=== PATIENT | female | born 1935 | race Caucasian/White ===

== ENCOUNTER → 2017-03-10 | Outpatient (CLI) | payer MEDICARE, OTHER ==
[~2017-03-10] MED LIST: AMLO2.5T PO; ASP81TEC PO; AZIT-21 PO; CALC1TAB94 PO; CLOB15CR3 TP; CLOT15CR6 TOP; DCS100C PO; EST.625T PO; HYDR-3720 PO; IBP800T PO; PRD20T PO; RLX60T PO
--- NOTE | 2017-03-13 19:01 | Diagnostic Imaging Report ---
Bilateral screening mammogram The current study was also evaluated with a Computer Aided Detection (CAD) system. Indication: Screening. No current complaints stated on the questionnaire. COMPARISON: 03/09/15 FINDINGS: The breasts are composed of heterogeneously dense parenchyma which may decrease mammographic sensitivity. There are extensive vascular and other benign-appearing calcifications. Allowing for technique and positional differences, no suspicious change is seen. IMPRESSION: No significant change. ACR BI-RADS Category 2: Benign findings. Result letter will be mailed to the patient. Note: At least 10% of breast cancer is not imaged by mammography. Dictated by: Dictated on workstation # [id number]
== END ==
LOC: RAD 11:21
PROVIDERS: ATTEND Internal Medicine
DX: Z12.31 Encounter for screening mammogram for malignant neoplasm of breast (principal)
CPT/HCPCS: 77067

== ENCOUNTER 2019-09-30 23:38 | Inpatient (IN) | payer MEDICARE, OTHER ==
[~2019-09-30] VITALS: Ht 160 cm; Wt 60.8 kg
[2019-09-30] MEDS ORDERED: FUROSEMIDE 40 MG/4 ML INJ (LASIX) IVP ONE (23:45)
[2019-09-30] MEDS ORDERED: cefTRIAXone FOR IV USE 1,000 MG in WATER (STERILE) FOR INJECTION 10 ML IV ONE (23:45)
[2019-09-30] MEDS ORDERED: AZITHROMYCIN INJECTION 500 MG in NS (IVPB) 250 ML IV ONE (23:45)
--- NOTE | 2019-09-30 23:55 | ED Respiratory ---
General Chief Complaint: Respiratory Problems Stated Complaint: SOB Source: patient, EMS Exam Limitations: clinical condition (Air Hunger) History of Present Illness Date Seen by Provider: Sep 30, 2019 Time Seen by Provider: 23:32 Initial Comments Patient presents to ER by EMS from home with chief complaint that 2250 she was sitting awake in her home when she had a sudden onset of shortness of breath. She called ambulance and EMS reports that they heard audible crackles across the room. We gave her a DuoNeb which made no difference. Put her on CPAP 100% FiO2 and this brought her up from the 80s on room air to mid 90s. Patient is adamant she is a DO NOT RESUSCITATE and DO NOT INTUBATE. She denies having any sign ificant medical history. She does take 2 medications but because of her air hunger she is not able to communicate those at this time. She denies taking any blood thinners or history of clots. Her records do demonstrate she was on hormone replacement therapy at one point. She denies taking any medications uoaa-loi-vhuadgi or herbals today. She said it came on rather suddenly. She de nies a history of heart failure or swelling in her hands or feet. She's not having any chest pain just increased worker breathing and shortness of breath. No recent illness, cough, fevers, chills, weakness or malaise. States she does not follow with a behavior management specialist but is a patient of Dr. Snyder. Allergies and Home Medications Allergies Coded Allergies: No Known Drug Allergies (Unverified , 07/29/12) Home Medications Amlodipine Besylate 2.5 Mg Tablet, 1 EACH PO DAILY, (Reported) Aspirin 81 Mg Tabec, 81 MG PO DAILY, (Reported) Betamethasone/Clotrimazole 15 Gm Cream.gm., 0 TOP BID, (Reported) APPLY TO AFFECTED AREA(S) Calcium Carbonate/Vitamin D3 1 Each Tablet, 1 EACH PO DAILY, (Reported) Clobetasol Propionate 15 Gm Cream.gm., 0 TP BID, (Reported) APPLY TO AFFECTED AREA(S) Docusate Sodium 100 Mg Capsule, 1 CAP PO DAILY PRN for CONSTIPATION Prescribed by: CHUY LY on 12/31/13 0813 Estrogens,Conjugated 0.625 Mg Tablet, 1 TAB PO DAILY, (Reported) Hydrocodone Bit/Acetaminophen 1 Each Tablet, 1-2 TAB PO Q3H PRN for PAIN Prescribed by: CHUY LY on 12/31/13812 Ibuprofen 800 Mg Tablet, 1 TAB PO Q6H PRN for PAIN Prescribed by: CHUY LY on 12/31/13812 Patient Home Medication List Home Medication List Reviewed: Yes Review of Systems Review of Systems Constitutional: No chills, No fever, No malaise EENTM: No ear pain, No eye pain Respiratory: see HPI; No cough, No phlegm; short of breath; No stridor, No wheezing Cardiovascular: No chest pain, No Hx of Intervention, No palpitations, No syncope, No vascular heart diseas Gastrointestinal: No abdominal pain, No constipation, No diarrhea Genitourinary: No discharge, No dysuria Musculoskeletal: No back pain, No joint pain All Other Systems Reviewed Negative Unless Noted: Yes Past Dwqqpks-Tjfwdx-Wtbbmp Hx Patient Social History Alcohol Use: Denies Use Recreational Drug Use: No Smoking Status: Never a Smoker Recent Foreign Travel: No Contact w/Someone Who Travel: No Immunizations Up To Date Date of Pneumonia Vaccine: Jul 05, 2010 Date of Influenza Vaccine: Jun 19, 2012 Family Medical History Family history: Cardiovascular disease 03 FATHER 03 MOTHER Physical Exam Vital Signs - First Documented 09/30/19 09/30/19 23:38 23:42 Temp 35.9 Pulse 118 Resp 24 Pulse Ox 100 O2 Delivery NIV Bilevel FiO2 100 Capillary Refill : Height: 5'3.00" Weight: 142lbs. oz. 64.035347ys; BMI Method:Stated General Appearance: WD/WN, moderate distress Eyes: Bilateral Eye Normal Inspection, Bilateral Eye PERRL, Bilateral Eye EOMI HEENT: PERRL/EOMI, normal ENT inspection, pharynx normal Neck: full range of motion, supple, normal inspection Respiratory: accessory muscle use (moderate moderate), rales, rhonchi (bilateral, audible); No wheezing Cardiovascular: normal peripheral pulses, regular rate, rhythm Gastrointestinal: normal bowel sounds, non tender, soft Extremities: normal range of motion, non-tender, normal inspection, no pedal edema Neurologic/Psychiatric: alert, normal mood/affect, oriented x 3 Skin: normal color, warm/dry Focused Exam Sepsis Stage: Sepsis Possible Source: Pulmonary Lactate Level 09/30/19 23:49: Lactic Acid Level 2.24*H Time of Focused Exam: 02:38 Respiratory: No Accessory Muscle Use, Rales, Respiratory Distress (improved on BiPAP) Cardiovascular: Regular Rate, Rhythm, No Edema, Normal Peripheral Pulses Capillary Refill: Less Than 3 Seconds Peripheral Pulses: 2+ Radial Pulses (R), 2+ Radial Pulses (L) Skin: normal color, warm/dry Lactic Acid Level Laboratory Tests Test 09/30/19 23:49 Lactic Acid Level 2.24 MMOL/L (0.50-2.00) *H Within 3hrs of presentation: Admin fluids, Admin ABX, Blood cultures prior to ABX's, Focus exam, Lactate level Progress/Results/Core Measures Suspected Sepsis SIRS Temperature: Pulse: Respiratory Rate: Laboratory Tests 09/30/19 23:49: White Blood Count 9.8 Blood Pressure / Mean: 09/30/19 23:49: Lactic Acid Level 2.24*H Laboratory Tests 09/30/19 23:49: Creatinine 1.25, INR Comment 0.9, Platelet Count 327, Total Bilirubin 0.3 Results/Orders Lab Results Laboratory Tests Test 09/30/19 23:49 10/01/19 00:07 Range/Units White Blood Count 9.8 4.3-11.0 10^3/uL Red Blood Count 3.84 L 4.35-5.85 10^6/uL Hemoglobin 11.8 11.5-16.0 G/DL Hematocrit 37 35-52 % Mean Corpuscular Volume 97 80-99 FL Mean Corpuscular Hemoglobin 31 25-34 PG Mean Corpuscular Hemoglobin Concent 32 32-36 G/DL Red Cell Distribution Width 13.3 10.0-14.5 % Platelet Count 327 130-400 10^3/uL Mean Platelet Volume 10.6 H 7.4-10.4 FL Neutrophils (%) (Auto) 39 L 42-75 % Lymphocytes (%) (Auto) 51 H 12-44 % Monocytes (%) (Auto) 7 0-12 % Eosinophils (%) (Auto) 4 0-10 % Basophils (%) (Auto) 0 0-10 % Neutrophils # (Auto) 3.8 1.8-7.8 X 10^3 Lymphocytes # (Auto) 4.9 H 1.0-4.0 X 10^3 Monocytes # (Auto) 0.7 0.0-1.0 X 10^3 Eosinophils # (Auto) 0.3 0.0-0.3 10^3/uL Basophils # (Auto) 0.0 0.0-0.1 10^3/uL Prothrombin Time 12.6 12.2-14.7 SEC INR Comment 0.9 0.8-1.4 Activated Partial Thromboplast Time 24 24-35 SEC D-Dimer 2.30 H 0.00-0.49 UG/ML Blood Gas Puncture Site RIGHT RADIAL Blood Gas Patient Temperature 96.5 Arterial Blood pH 7.32 *L 7.37-7.43 Arterial Blood Partial Pressure CO2 36 35-45 MMHG Arterial Blood Partial Pressure O2 189 H 79-93 MMHG Arterial Blood HCO3 18 L 23-27 MMOL/L Arterial Blood Total CO2 19.4 L 21.0-31.0 MMOL/L Arterial Blood Oxygen Saturation 100 94-100 % Arterial Blood Base Excess -6.9 L -2.5-2.5 MMOL/L Hira Test YES-POS Blood Gas Ventilator Setting NO Blood Gas Inspired Oxygen 18L Sodium Level 140 135-145 MMOL/L Potassium Level 3.6 3.6-5.0 MMOL/L Chloride Level 113 H 98-107 MMOL/L Carbon Dioxide Level 15 L 21-32 MMOL/L Anion Gap 12 5-14 MMOL/L Blood Urea Nitrogen 27 H 7-18 MG/DL Creatinine 1.25 0.60-1.30 MG/DL Estimat Glomerular Filtration Rate 41 BUN/Creatinine Ratio 22 Glucose Level 200 H 70-105 MG/DL Lactic Acid Level 2.24 *H 0.50-2.00 MMOL/L Calcium Level 8.7 8.5-10.1 MG/DL Corrected Calcium 9.1 8.5-10.1 MG/DL Total Bilirubin 0.3 0.1-1.0 MG/DL Aspartate Amino Transf (AST/SGOT) 29 5-34 U/L Alanine Aminotransferase (ALT/SGPT) 22 0-55 U/L Alkaline Phosphatase 51 40-136 U/L Troponin I 0.152 H <0.028 NG/ML B-Type Natriuretic Peptide 2120.2 H <100.0 PG/ML Total Protein 6.3 L 6.4-8.2 GM/DL Albumin 3.5 3.2-4.5 GM/DL Urine Color YELLOW Urine Clarity CLEAR Urine pH 5.0 5-9 Urine Specific [place] >=1.030 1.016-1.022 Urine Protein NEGATIVE NEGATIVE Urine Glucose (UA) NEGATIVE NEGATIVE Urine Ketones NEGATIVE NEGATIVE Urine Nitrite POSITIVE NEGATIVE Urine Bilirubin NEGATIVE NEGATIVE Urine Urobilinogen 0.2 < = 1.0 MG/DL Urine Leukocyte Esterase NEGATIVE NEGATIVE Urine RBC (Auto) NEGATIVE NEGATIVE Urine RBC NONE /HPF Urine WBC 0-2 /HPF Urine Squamous Epithelial Cells 0-2 /HPF Urine Crystals NONE /LPF Urine Bacteria LARGE H /HPF Urine Casts NONE /LPF Urine Mucus LARGE H /LPF Urine Culture Indicated CULTURE PENDING Micro Results Microbiology 09/30/19 Influenza Types A,B Antigen ([place]) - Final, Complete My Orders Orders - LENCHO CRESPO Cbc With Automated Diff (09/30/19 23:42) Comprehensive Metabolic Panel (09/30/19 23:42) Blood Culture (09/30/19 23:42) Sputum Culture (09/30/19 23:42) Urinalysis (09/30/19 23:42) Urine Culture (09/30/19 23:42) Protime With Inr (09/30/19 23:42) Partial Thromboplastin Time (09/30/19 23:42) Ed Iv/Invasive Line Start (09/30/19 23:42) Ed Iv/Invasive Line Start (09/30/19 23:42) Troponin I (09/30/19 23:42) Vital Signs Adult Sepsis Patie Q15M (09/30/19 23:42) O2 (09/30/19 23:42) Remove Rings In Anticipation O (09/30/19 23:42) Lactic Acid Analyzer (09/30/19 23:42) Influenza A And B Antigens (09/30/19 23:42) Ceftriaxone For Iv Use (Rocephin For I (09/30/19 23:45) Azithromycin Injection (Zithromax Inject (09/30/19 23:45) BNP (09/30/19 23:42) Ekg Tracing (09/30/19 23:42) Continuous Ekg Monitoring (09/30/19 23:42) Furosemide Injection (Lasix Injection) (09/30/19 23:45) Catheter(Urinary) Insert & Ass 03,15 (09/30/19 23:45) Enoxaparin Injection (Lovenox Injection) (10/01/19 00:00) Arterial Blood Gas (09/30/19 23:52) Chest 1 View, Ap/Pa Only (10/01/19 00:01) Ed Iv/Invasive Line Start (10/01/19 00:06) Ns Iv 1000 Ml (Sodium Chloride 0.9%) (10/01/19 00:06) Ct Angio Chest W (10/01/19 00:50) Aspirin Chewable Tablet (Baby Aspirin Ch (10/01/19 01:00) Fibrin Degradation Products (09/30/19 23:49) Iohexol Injection (Omnipaque 350 Mg/Ml 1 (10/01/19 01:30) Ns (Ivpb) (Sodium Chloride 0.9% Ivpb Bag (10/01/19 01:30) Ed Iv/Invasive Line Start (10/01/19 02:39) Ekg Tracing (10/01/19 02:39) Medications Given in ED Current Medications Medications Dose Ordered Sig/Kiko Route Start Time Stop Time Status Last Admin Dose Admin Aspirin 324 mg ONCE ONCE PO 10/01/19 01:00 10/01/19 01:01 DC 10/01/19 00:57 324 MG Azithromycin 500 mg/Sodium Chloride 250 ml @ 250 mls/hr ONCE ONCE IV 09/30/19 23:45 10/01/19 00:44 DC 10/01/19 00:55 250 MLS/HR Ceftriaxone Sodium 1000 mg/ Sterile Water 10 ml @ 200 mls/hr ONCE ONCE IV 09/30/19 23:45 09/30/19 23:47 DC 10/01/19 00:54 200 MLS/HR Enoxaparin Sodium 60 mg ONCE ONCE SC 10/01/19 00:00 10/01/19 00:01 DC 10/01/19 00:53 60 MG Iohexol 100 ml ONCE ONCE IV 10/01/19 01:30 10/01/19 02:21 DC 10/01/19 01:27 100 ML Sodium Chloride 80 ml ONCE ONCE IV 10/01/19 01:30 10/01/19 02:21 DC 10/01/19 01:27 80 ML Vital Signs/I&O 09/30/19 09/30/19 10/01/19 23:38 23:42 00:36 Temp 35.9 Pulse 118 Resp 24 B/P (MAP) Pulse Ox 100 O2 Delivery NIV Bilevel FiO2 100 Capillary Refill : Progress Note : Time: 23:55 Progress Note We put her on BiPAP to give her some positive pressure ventilation as well as FiO2 of 100%. She had a sudden onset of pulmonary edema sounds like either from pneumonia, viral, pulmonary embolism, heart failure? We'll get some labs and septic workup to support this. We'll hold off any fluids at this time and give her 40 mg of IV Lasix as well as a [place] catheter. EKG and troponin as a heart attack could cause heart failure. We'll give her aspirin to chew up and swallow. Her blood pressure will not support nitroglycerin at this time. EKG has lots of respiratory artifact due to her increased work of breathing. We'll get an ABG and readjust fire on her BiPAP from 06/08. Echocardiogram 2013 Dr. Vogt demonstrates no left ventricular hypertrophy. EF of 60%. ECG Initial ECG Impression Date: Sep 30, 2019 Initial ECG Impression Time: 23:49 Initial ECG Rate: 111 Initial ECG Rhythm: S.Tach Initial ECG Intervals: Normal Initial ECG Impression: Normal, Nonspecific Changes Initial ECG Comparisson: Unchanged Comment Respiratory artifact maybe some lateral ST depression. EKG : EKG Time: 02:57 Rate: 97 Rhythm: Normal Sinus Intervals: QT (524) ECG Comparisson: Changed ECG Impression: Nonspecific Changes Comment Left bundle branch block, Sinus rhythm. Negative for Sgarbossa's criteria. Negative for ST elevation [place]. Diagnostic Imaging Diagonstic Imaging: Xray Plain Films/CT/US/NM/MRI: chest (1v) Comments Right lower lobe edema versus infiltrate. Reviewed: Reviewed by Me Diagonstic Imaging: CT (angiogram) Plain Films/CT/US/NM/MRI: chest Comments Moderate bilateral pleural effusions and pulmonary edema. Mild cardiomegaly. No pulmonary embolism. Reviewed: Reviewed by Me Departure Communication (Admissions) Time/Spoke to Admitting Phy: 02:32 Discussed case lab imaging EKG with Dr. De La Vega and he agrees with ICU placement Time/Spoke to Consulting Phy: 00:00 Discussed case lab and imaging with Dr. Berg, cardiology and he agrees with Lovenox, aspirin and he'll see the patient the morning. Impression Primary Impression: Non-STEMI (non-ST elevated myocardial infarction) Additional Impressions: Acute respiratory failure Qualified Codes: J96.01 - Acute respiratory failure with hypoxia Pneumonia Qualified Codes: J18.1 - Lobar pneumonia, unspecified organism Sepsis Qualified Codes: A41.9 - Sepsis, unspecified organism Disposition: ADMITTED INPATIENT Condition: Critical Admissions Decision to Admit Reason: Admit from ER (General) Decision to Admit/Date: Oct 01, 2019 Time/Decision to Admit Time: 00:00 Departure-Patient Inst. Referrals: EZIO CHAVIRA MD (PCP/Family) Primary Care Physician LENCHO CRESPO Sep 30, 2019 23:55
[2019-10-01] VITALS (25 sets, daily range): BP systolic 94–135; BP diastolic 57–95
[2019-10-01] MEDS ORDERED: ENOXAPARIN 60 MG/0.6 ML (LOVENOX) SYR SC ONE
[2019-10-01 00:01] LABS: ABG BASE EXCESS -6.9 MMOL/L (-2.5-2.5); ABG OXYGEN SATURATION 100 % (94-100); ABG PCO2 36 MMHG (35-45); ABG PO2 189 MMHG (79-93); ABG TCO2 19.4 MMOL/L (21.0-31.0)
[2019-10-01 00:02] LABS: BASOPHILS % (AUTO) 0 % (0-10); EOSINOPHILS # (AUTO) 0.3 10^3/uL (0.0-0.3); EOSINOPHILS % (AUTO) 4 % (0-10); HEMATOCRIT 37 % (35-52); HEMOGLOBIN 11.8 G/DL (11.5-16.0); LYMPHOCYTES # (AUTO) 4.9 X 10^3 (1.0-4.0); LYMPHOCYTES % (AUTO) 51 % (12-44); MEAN CORPUSCULAR HEMOGLOBIN 31 PG (25-34); MEAN CORPUSCULAR HGB CONC 32 G/DL (32-36); MEAN CORPUSCULAR VOLUME 97 FL (80-99); MEAN PLATELET VOLUME 10.6 FL (7.4-10.4); MONOCYTES # (AUTO) 0.7 X 10^3 (0.0-1.0); MONOCYTES % (AUTO) 7 % (0-12); NEUTROPHILS # (AUTO) 3.8 X 10^3 (1.8-7.8); NEUTROPHILS % (AUTO) 39 % (42-75); PLATELET COUNT 327 10^3/uL (130-400); RED CELL DISTRIBUTION WIDTH 13.3 % (10.0-14.5); WHITE BLOOD COUNT 9.8 10^3/uL (4.3-11.0)
[2019-10-01 00:04] LABS: ABG PH 7.32 (7.37-7.43); ALLENS TEST YES-POS; INSPIRED O2 18L; PATIENT TEMP 96.5; VENTILATOR NO
[2019-10-01] MEDS ORDERED: NS IV 1000 ML 1,000 ML IV SCH (00:06)
[2019-10-01 00:18] LABS: BILIRUBIN,URINE NEGATIVE (NEGATIVE); CLARITY,URINE CLEAR; COLOR,URINE YELLOW; GLUCOSE, URINE (UA) NEGATIVE (NEGATIVE); KETONES,URINE NEGATIVE (NEGATIVE); LEUKOCYTE ESTERASE ,URINE NEGATIVE (NEGATIVE); NITRITE,URINE POSITIVE (NEGATIVE); PROTEIN,URINE NEGATIVE (NEGATIVE)
[2019-10-01 00:25] LABS: INR 0.9 (0.8-1.4); PROTHROMBIN TIME PATIENT 12.6 SEC (12.2-14.7)
[2019-10-01 00:31] LABS: BACTERIA,URINE LARGE /HPF; SQUAMOUS EPITHELIAL CELL,UR 0-2 /HPF; WBC,URINE 0-2 /HPF
[2019-10-01 00:33] LABS: ALBUMIN 3.5 GM/DL (3.2-4.5); BILIRUBIN,TOTAL 0.3 MG/DL (0.1-1.0); CALCIUM 8.7 MG/DL (8.5-10.1); CREATININE SERUM 1.25 MG/DL (0.60-1.30); POTASSIUM 3.6 MMOL/L (3.6-5.0); TOTAL PROTEIN 6.3 GM/DL (6.4-8.2)
[2019-10-01] MEDS ORDERED: ASPIRIN 81 MG CHEW (CHILDREN'S ASA) PO ONE (01:00)
[2019-10-01 01:15] LABS: FIBRIN DEGRADATION PRODUCTS 2.3 UG/ML (0.00-0.49)
[2019-10-01] MEDS ORDERED: NS 100 ML (IVPB) BAG IV ONE (01:30)
[2019-10-01] MEDS ORDERED: IOHEXOL 350 MG/ML 100 ML (OMNIPAQUE 350) VIAL IV ONE (01:30)
[2019-10-01] MEDS ORDERED: NS IV 500 ML 500 ML IV ONE (02:39)
[2019-10-01 04:22] LABS: BASOPHILS % (AUTO) 0 % (0-10); EOSINOPHILS % (AUTO) 0 % (0-10); HEMATOCRIT 34 % (35-52); HEMOGLOBIN 10.7 G/DL (11.5-16.0); LYMPHOCYTES # (AUTO) 1.1 X 10^3 (1.0-4.0); LYMPHOCYTES % (AUTO) 12 % (12-44); MEAN CORPUSCULAR HEMOGLOBIN 31 PG (25-34); MEAN CORPUSCULAR HGB CONC 32 G/DL (32-36); MEAN CORPUSCULAR VOLUME 97 FL (80-99); MEAN PLATELET VOLUME 10.2 FL (7.4-10.4); MONOCYTES # (AUTO) 0.7 X 10^3 (0.0-1.0); MONOCYTES % (AUTO) 8 % (0-12); NEUTROPHILS # (AUTO) 7.4 X 10^3 (1.8-7.8); NEUTROPHILS % (AUTO) 80 % (42-75); PLATELET COUNT 272 10^3/uL (130-400); RED CELL DISTRIBUTION WIDTH 13.2 % (10.0-14.5); WHITE BLOOD COUNT 9.2 10^3/uL (4.3-11.0)
[2019-10-01] MEDS ORDERED: RT-ALBUTEROL/IPRATROPIUM 3 ML (DUONEB) VIAL INH PRN (04:30)
[2019-10-01 04:45] LABS: ALBUMIN 3.4 GM/DL (3.2-4.5); BILIRUBIN,TOTAL 0.3 MG/DL (0.1-1.0); CALCIUM 8.9 MG/DL (8.5-10.1); CREATININE SERUM 1.25 MG/DL (0.60-1.30); MAGNESIUM 1.9 MG/DL (1.6-2.4); PHOSPHORUS 3.8 MG/DL (2.3-4.7); POTASSIUM 4.2 MMOL/L (3.6-5.0)
[2019-10-01] MEDS ORDERED: ONDANSETRON 4 MG/2 ML (SDV) Z0FRAN IV PRN (04:45)
[2019-10-01] MEDS ORDERED: EPINEPHrine 1 MG INJECTION 2 MG in NS (IVPB) 250 ML IV SCH (04:45)
[2019-10-01] MEDS ORDERED: ACETAMINOPHEN 500 MG TAB (TYLENOL) PO PRN (04:45)
[2019-10-01] MEDS ORDERED: AZITHROMYCIN INJECTION 500 MG in NS (IVPB) 250 ML IV SCH (04:45)
[2019-10-01 05:35] LABS: ABG BASE EXCESS -5.4 MMOL/L (-2.5-2.5); ABG OXYGEN SATURATION 99 % (94-100); ABG PCO2 28 MMHG (35-45); ABG PH 7.42 (7.37-7.43); ABG PO2 101 MMHG (79-93); ABG TCO2 19.2 MMOL/L (21.0-31.0)
[2019-10-01 05:41] LABS: ALLENS TEST YES-POS; INSPIRED O2 40%; PATIENT TEMP 36.2; VENTILATOR NO
--- NOTE | 2019-10-01 05:41 | Pulmonary Consultation ---
History of Present Illness History of Present Illness Date Seen by Provider: Oct 01, 2019 Time Seen by Provider: 05:36 Date of Admission History of Present Illness 84yo presented to ED via EMS secondary to worsening SOB. Pt was found to have acute respiratory distress and was place on BiPAP. She was given DuoNeb however this did not improve her symptoms. Currently pt is still on BiPAP and still complains of SOB however improved with BiPAP. No prior episodes like this in the past. Denies CP or productive cough. No F/NS/chills. I am consulted for pulmonary/ICU management. Allergies and Home Medications Allergies Coded Allergies: No Known Drug Allergies (Unverified , 07/29/12) Home Medications Amlodipine Besylate 2.5 Mg Tablet, 1 EACH PO DAILY, (Reported) Aspirin 81 Mg Tabec, 81 MG PO DAILY, (Reported) Betamethasone/Clotrimazole 15 Gm Cream.gm., 0 TOP BID, (Reported) APPLY TO AFFECTED AREA(S) Calcium Carbonate/Vitamin D3 1 Each Tablet, 1 EACH PO DAILY, (Reported) Clobetasol Propionate 15 Gm Cream.gm., 0 TP BID, (Reported) APPLY TO AFFECTED AREA(S) Docusate Sodium 100 Mg Capsule, 1 CAP PO DAILY PRN for CONSTIPATION Prescribed by: CHUY LY on 12/31/13812 Estrogens,Conjugated 0.625 Mg Tablet, 1 TAB PO DAILY, (Reported) Hydrocodone Bit/Acetaminophen 1 Each Tablet, 1-2 TAB PO Q3H PRN for PAIN Prescribed by: CHUY LY on 12/31/13812 Ibuprofen 800 Mg Tablet, 1 TAB PO Q6H PRN for PAIN Prescribed by: CHUY LY on 12/31/13812 Past Uzlrvwv-Wfpebi-Vfryry Hx Patient Social History Alcohol Use: Denies Use Recreational Drug Use: No Smoking Status: Never a Smoker Recent Foreign Travel: No Contact w/Someone Who Travel: No Recent Infectious Disease Expo: No Recent Hopitalizations: No Physical Abuse: No Sexual Abuse: No Mistreated: No Fear: No Immunizations Up To Date Date of Pneumonia Vaccine: Aug 01, 2010 Date of Influenza Vaccine: Jun 04, 2019 Seasonal Allergies Seasonal Allergies: No Past Medical History Surgeries: Yes (vaginal surgery-unk.) Respiratory: No Cardiac: Yes Neurological: No Gastrointestinal: No Musculoskeletal: No Endocrine: No Cancer: No Psychosocial: No Integumentary: No Blood Disorders: No Family Medical History Family history: Cardiovascular disease 03 FATHER 03 MOTHER Review of Systems Time Seen by Provider: 07:18 Constitutional: Weakness, Malaise; No: Fever, Chills, Sweats, Other Eyes: No: Pain, Vision change, Conjunctivae inflammation, Eyelid inflammation, Other, Redness ENT: No: Ear pain, Ear discharge, Nose pain, Nose discharge, Nose congestion, Mouth pain, Mouth swelling, Throat pain, Throat swelling, Other Respiratory: Cough, Dry, Shortness of breath, SOB with excertion; No: Wheezing, Hemoptysis, Pleuritic Pain, Sputum, Wheezing, Other Cardiovascular: Palpitations, Paroxysmal Noc. Dyspnea; No: Edema Gastrointestinal: No: Nausea, Vomiting, Abdominal Pain, Diarrhea, Constipation, Melena, Hematochezia, Other Sepsis Event Evaluation Height, Weight, BMI Height: 5'3.00" Weight: 142lbs. oz. 64.065631pe; 23.00 BMI Method:Stated Exam Exam Vital Signs Date Time Temp Pulse Resp B/P (MAP) Pulse Ox O2 Delivery O2 Flow Rate FiO2 10/01/19 05:00 94 16 102/65 (77) 97 NIV Bilevel 40.00 10/01/19 04:45 95 18 101/68 (79) 97 NIV Bilevel 40.00 10/01/19 04:30 93 16 110/70 (83) 98 NIV Bilevel 40.00 10/01/19 04:20 102 98 40 10/01/19 04:15 98 24 109/71 (84) 99 NIV Bilevel 40.00 10/01/19 04:07 96 10/01/19 04:00 NIV Bilevel 40 10/01/19 04:00 96 26 102/63 (76) 98 NIV Bilevel 40.00 10/01/19 04:00 121 30 97 100.00 10/01/19 03:59 110 32 100 40.00 10/01/19 03:55 37.1 101 26 108/61 (77) 98 NIV Bilevel 40.00 10/01/19 03:34 35.9 94 20 90/71 100 NIV Bilevel 10/01/19 00:36 09/30/19 23:42 100 NIV Bilevel 100 09/30/19 23:38 35.9 118 24 I & O 10/01/19 07:00 Intake Total 1260 ml Balance 1260 ml Height & Weight Height: 5'3.00" Weight: 142lbs. oz. 64.994688bl; 23.00 BMI Method:Stated General Appearance: Anxious, Mild Distress, Thin HEENT: PERRL/EOMI, Pharynx Normal Neck: Full Range of Motion, Non Tender, Supple Respiratory: No Accessory Muscle Use, Decreased Breath Sounds, Rales, Respiratory Distress (improved on BiPAP) Cardiovascular: Regular Rate, Rhythm, No Edema, Normal Peripheral Pulses Capillary Refill: Less Than 3 Seconds Peripheral Pulses: 2+ Radial Pulses (R), 2+ Radial Pulses (L) Gastrointestinal: normal bowel sounds, non tender, soft Extremity: Normal Capillary Refill, Normal Inspection, No Pedal Edema Neurologic/Psychiatric: Alert, Oriented x3 Skin: Normal Color, Warm/Dry Results Lab Laboratory Tests 09/30/19 23:49 10/01/19 04:00 Assessment/Plan Assessment/Plan Acute respiratory failure with hypoxia -PT is currently on BiPAP -CT of chest reviewed -Check bilateral dopplers Bilateral pleural effusions -Check echocardiogram Metabolic lactic acidosis probably secondary to hypoxia -- Doubt sepsis -Monitor -Currently IVF going at 100cc/hr -Await echo -- pt will probably need lasix -BNP is >2000 Atelectasis doubt PNA -No fever, no leukocytosis -No productive cough NSTEMI -Cardiology following MOOK ROBERTS DO Oct 01, 2019 05:41
[2019-10-01] MEDS: NS W/KCL 20 MEQ/L 1,000 ML IV SCH ×2 (06:00→15:24)
[2019-10-01] MEDS: VASOPRESSIN INJECTION 20 UNIT in NORMAL SALINE 100 ML IV SCH ×3 (06:03→21:07)
[2019-10-01] MEDS: NOREPINEPHRINE 4 MG/250 ML 250 ML IV SCH ×2 (06:03→18:20)
--- NOTE | 2019-10-01 06:46 | Diagnostic Imaging Report ---
INDICATION: Shortness of breath COMPARISON: 05/10/2008 TECHNIQUE: Single radiograph of the chest dated 10/01/2019. FINDINGS: The cardiac silhouette is mildly enlarged. Central pulmonary vascular congestion is present. Bilateral predominantly interstitial opacities are present with mild superimposed airspace opacities, left greater than right. Small bilateral pleural effusions. No pneumothorax. No acute osseous abnormality. IMPRESSION: Constellation of findings is felt to relate to congestive heart failure with associated interstitial edema and small bilateral pleural effusions. Dictated by: Dictated on workstation # [id number]
--- NOTE | 2019-10-01 08:07 | Diagnostic Imaging Report ---
PROCEDURE: US Venous Lower Ext Martín. TECHNIQUE: Multiple real-time grayscale images were obtained over the lower extremities in various projections, bilaterally. Additional duplex Doppler and color Doppler images were also obtained. INDICATION: Shortness of air, congestive heart failure COMPARISON: None available FINDINGS: Normal flow, compression, and augmentation within the visualized deep venous structures of the bilateral lower extremities. IMPRESSION: No evidence of deep venous thrombosis within the bilateral lower extremities. Dictated by: Dictated on workstation # [id number]
--- NOTE | 2019-10-01 08:10 | Diagnostic Imaging Report ---
PROCEDURE: CT angiography of the chest with contrast. TECHNIQUE: Multiple contiguous axial images were obtained through the chest after uneventful bolus administration of intravenous contrast. 3D reconstructed CTA MIP acquisitions were also performed. Auto Exposure Controls were utilized during the CT exam to meet ALARA standards for radiation dose reduction. INDICATION: Shortness of breath. COMPARISON: None FINDINGS: There is no definitive filling defect in the pulmonary arteries to suggest pulmonary embolism. There is some attenuation of the peripheral branches making their assessment limited. Mild severity cardiac enlargement. There is no disproportionate right heart enlargement. Presence of scattered coronary artery calcification. Mild calcification thoracic aorta which otherwise normal in contour. No significant pericardial effusion. No definitive pathologically enlarged mediastinal lymph nodes. There is moderate sized bilateral pleural effusions right slightly greater than left. Fluid layering dependently. There is scattered areas of consolidation about both lung medina slightly greater involving the lower lobes as well as more central aspect of the upper lobe distributions. Given the overall findings favors probable pulmonary edema. Superimposed infiltrate would be difficult to exclude. The visualized portions of the upper abdomen demonstrate no suggestion for acute findings. Slight accentuated thoracic kyphosis owing to mildly compressed anteriorly wedged mid thoracic vertebral bodies. Prominent calcification in the carotid bifurcations. IMPRESSION: 1. No CTA evidence for pulmonary embolism. 2. Presence of mild cardiomegaly, moderate bilateral pleural effusions as well as likely pulmonary edema features favoring fluid overload or congestive heart failure. A superimposed consolidating pneumonia within the lung medina is not excluded. A preliminary report was provided by [employer]. Dictated by: Dictated on workstation # [id number]
[2019-10-01] MEDS: ASPIRIN E.C. 81 MG (ECOTRIN) TAB PO SCH (08:35)
[2019-10-01] MEDS: ENOXAPARIN 60 MG/0.6 ML (LOVENOX) SYR SC SCH (08:35)
--- NOTE | 2019-10-01 09:09 | History & Physical-Hospitalist ---
History of Present Illness HPI/Chief Complaint Is an 84-year-old female the past medical history of hypertension who presented to the emergency department with shortness of breath. She states that her symptoms started on September 28 and have gradually progressed. She states she was lying down in bed last night and woke up short of breath. She was able to walk to the living room but remained very short of breath so called EMS via her life. Per notes EMS could hear crackles from across the room. She was given a breathing treatment without improvement and was placed on BiPAP in the emergency room. This helped improved her symptoms and she was also given Lasix. This morning she is off BiPAP and says she feels much better. His found to have an elevated troponin and elevated BNP but reports no history of heart disease or heart failure. Source: patient Date Seen 10/01/19 Time Seen by a Provider: 07:50 Attending Physician Patrice De La Vega MD PCP Kodi Caballero MD Referring Physician Date of Admission Oct 01, 2019 at 02:40 Home Medications & Allergies Home Medications Reviewed patient Home Medication Reconciliation performed by pharmacy medication reconciliations automotive diagnostic technician and/or nursing. Patients Allergies have been reviewed. Allergies Allergies Coded Allergies No Known Drug Allergies ([id number]/25/12) Past Vmiwmvc-Hxlgsc-Ogtxyn Hx Past Med/Social Hx: Reviewed Nursing Past Med/Soc Hx Patient Social History Employed/Student: retired Alcohol Use: Denies Use Recreational Drug Use: No Smoking Status: Never a Smoker Recent Foreign Travel: No Contact w/other who traveled: No Recent Hopitalizations: No Recent Infectious Disease Expo: No Immunizations Up To Date Date of Pneumonia Vaccine: Aug 01, 2010 Date of Influenza Vaccine: Jun 04, 2019 Seasonal Allergies Seasonal Allergies: No Past Medical History Surgeries: Hysterectomy Cardiac: Hypertension History of Blood Disorders: No Family History Reviewed Nursing Family Hx Family history: Cardiovascular disease 03 FATHER 03 MOTHER Heart Disease Review of Systems Constitutional: No chills, No fever, No weakness Respiratory: see HPI, dyspnea on exertion, short of breath Cardiovascular: No chest pain; edema; No Hx of Intervention, No palpitations Gastrointestinal: no symptoms reported; No abdominal pain, No constipation Genitourinary: no symptoms reported; No dysuria, No frequency Musculoskeletal: no symptoms reported Skin: no symptoms reported Psychiatric/Neurological: No Symptoms Reported Physical Exam Physical Exam Vital Signs Vital Signs - First Documented 109/30/19 10/01/19 10/01/19 23:38 23:42 03:34 03:55 Temp 35.9 Pulse 118 Resp 24 B/P (MAP) 90/71 Pulse Ox 100 O2 Delivery NIV Bilevel O2 Flow Rate 40.00 FiO2 100 Capillary Refill : Less Than 3 Seconds Height, Weight, BMI Height: 5'3.00" Weight: 142lbs. oz. 64.751769ym; 23.00 BMI Method:Stated General Appearance: No Apparent Distress, WD/WN HEENT: PERRL/EOMI, Moist Mucous Membranes; No Scleral Icterus (L), No Scleral Icterus (R) Neck: Normal Inspection, Supple; No Thyromegaly Respiratory: Lungs Clear, No Accessory Muscle Use, No Respiratory Distress Cardiovascular: No Edema, No JVD, No Murmur, Tachycardia Gastrointestinal: Normal Bowel Sounds, Non Tender, Soft Extremity: Normal Capillary Refill, No Calf Tenderness, No Pedal Edema Neurologic/Psychiatric: Alert, Oriented x3 Skin: Normal Color, Warm/Dry Results Results/Procedures Labs Laboratory Tests 09/30/19 23:49 10/01/19 04:00 Patient resulted labs reviewed. Imaging: Reviewed Imaging Report Imaging Date of Exam:10/01/19 CHEST 1 VIEW, AP/PA ONLY INDICATION: Shortness of breath COMPARISON: 05/10/2008 TECHNIQUE: Single radiograph of the chest dated 10/01/2019. FINDINGS: The cardiac silhouette is mildly enlarged. Central pulmonary vascular congestion is present. Bilateral predominantly interstitial opacities are present with mild superimposed airspace opacities, left greater than right. Small bilateral pleural effusions. No pneumothorax. No acute osseous abnormality. IMPRESSION: Constellation of findings is felt to relate to congestive heart failure with associated interstitial edema and small bilateral pleural effusions. Date of Exam:10/01/19 CT ANGIO CHEST W PROCEDURE: CT angiography of the chest with contrast. TECHNIQUE: Multiple contiguous axial images were obtained through the chest after uneventful bolus administration of intravenous contrast. 3D reconstructed CTA MIP acquisitions were also performed. Auto Exposure Controls were utilized during the CT exam to meet ALARA standards for radiation dose reduction. INDICATION: Shortness of breath. COMPARISON: None FINDINGS: There is no definitive filling defect in the pulmonary arteries to suggest pulmonary embolism. There is some attenuation of the peripheral branches making their assessment limited. Mild severity cardiac enlargement. There is no disproportionate right heart enlargement. Presence of scattered coronary artery calcification. Mild calcification thoracic aorta which otherwise normal in contour. No significant pericardial effusion. No definitive pathologically enlarged mediastinal lymph nodes. There is moderate sized bilateral pleural effusions right slightly greater than left. Fluid layering dependently. There is scattered areas of consolidation about both lung medina slightly greater involving the lower lobes as well as more central aspect of the upper lobe distributions. Given the overall findings favors probable pulmonary edema. Superimposed infiltrate would be difficult to exclude. The visualized portions of the upper abdomen demonstrate no suggestion for acute findings. Slight accentuated thoracic kyphosis owing to mildly compressed anteriorly wedged mid thoracic vertebral bodies. Prominent calcification in the carotid bifurcations. IMPRESSION: 1. No CTA evidence for pulmonary embolism. 2. Presence of mild cardiomegaly, moderate bilateral pleural effusions as well as likely pulmonary edema features favoring fluid overload or congestive heart failure. A superimposed consolidating pneumonia within the lung medina is not excluded. Assessment/Plan Admission Diagnosis Acute Respiratory Failure Admission Status: Inpatient Order (span 2 midnights) Reason for Inpatient Admission: necessitated BiPAP, likely new onset heart failure with NSTEMI- will need more than 2 midnights Assessment and Plan Acute Respiratory Failure- doubt PNA, not sepsis NSTEMI CHF BNP elevated, echo ordered Troponin mildly elevated, trend Received ASA Lasix Cardiology consulted, appreciate recs Pulm consulted, appreciate recs HTN Mildly hypotensive hold home meds elevated d-dimer Lovenox negative CTA negative bilateral lower extremities Clinical Quality Measures DVT/VTE Risk/Contraindication: Risk Factor Score Per Nursin RFS Level Per Nursing on Admit: 4+=Very High DADA BEY MD Oct 01, 2019 09:09
[2019-10-01] MEDS: RT-ALBUTEROL/IPRATROPIUM 3 ML (DUONEB) VIAL INH SCH ×3 (09:36→21:29)
--- NOTE | 2019-10-01 10:13 | NUR ---
Verbal order received from to give patient 80mg IV lasix now and daily.
[2019-10-01] MEDS: FUROSEMIDE 40 MG/4 ML INJ (LASIX) IVP SCH (10:32)
[2019-10-01] MEDS ORDERED: ASPI-983 PO (10:39)
[2019-10-01] MEDS ORDERED: ESTR1TAB24 PO (10:39)
[2019-10-01] MEDS ORDERED: CALC-654 PO (10:39)
[2019-10-01] MEDS ORDERED: AMLO5TAB9 PO (10:39)
--- NOTE | 2019-10-01 10:40 | NUR ---
SPOKE WITH THE PATIENT ABOUT HER MEDICATIONS. SHE HAD HER TWO PRESCRIPTION BOTTLES WITH HER IN LOCK UP. I VERIFIED THEY MATCH THE EXT MED HX. SHE ALSO TAKES ASPIRIN 81MG DAILY AND CALCIUM +D 2 DAILY OTC.
--- NOTE | 2019-10-01 13:30 | NUR ---
This nurse notified about patients critical troponin.
--- NOTE | 2019-10-01 16:06 | Consultation-Cardiology ---
HPI-Cardiology Cardiology Consultation: Date of Consultation 10/01/19 Date of Admission Attending Physician Patrice De La Vega MD Admitting Physician Kodi Caballero MD Consulting Physician Uday BERG MD HPI: Time Seen by a Provider: 09:00 This is a 84-year-old lady who is DO NOT RESUSCITATE DO NOT INTUBATE CODE STATUS. She presented with significant shortness of breath. She denies any cardiac history. She is not an active smoker. No pertinent positive family history. She is a patient of Dr. Caballero'kristian. She denied any chest pain. She just complained of worsening shortness of breath. In the ER she was hypoxic. Review of Systems-Cardiology Review of Systems Constitutional: As described under HPI; No As described under HPI, No no symptoms reported, No chills, No fever, No lightheadedness Eyes: No As described under HPI, No no symptoms reported, No blindness, No blurred vision, No contact lenses, No drainage, No decreased acuity, No foreign body sensation, No pain, No vision change Ears/Nose/Throat: No As described under HPI, No no symptoms reported, No chronic hearing loss, No ear discharge, No ear pain, No nasal drainage, No ulcerations Respiratory: No no symptoms reported; As described under HPI; No As described under HPI, No cough; orthopnea; No shortness of breath, No SOB with excertion Cardiovascular: No no symptoms reported; As described under HPI; No As described under HPI, No chest pain, No edema, No irregular heart rate, No lightheadedness, No palpitations Gastrointestinal: No no symptoms reported, No As described under HPI, No abdomen distended, No abdominal pain, No blood streaked bowels, No constipation, No diarrhea, No nausea, No vomiting, No stool coloration changes Genitourinary: No As described under HPI, No burning, No dysuria, No discharge, No frequency, No flank pain, No hematuria, No urgency : Yes : No Skin: No rash, No skin related problems, No ulcerations Psychiatric/Neurological: No anxiety, No depression, No seizure, No focal weakness, No syncope Hematologic: No bleeding abnormalities All Other Systems Reviewed Negative Unless Noted: Yes [id number]-Btwsbj Hx Patient Social History Employed/Student: retired Alcohol Use: Denies Use Recreational Drug Use: No Smoking Status: Never a Smoker Recent Foreign Travel: No Recent Infectious Disease Expo: No Hospitalization with Isolation: Denies Immunizations Up To Date Date of Pneumonia Vaccine: Aug 01, 2010 Date of Influenza Vaccine: Jun 04, 2019 Past Medical History PMH As described under Assessment. Family Medical History Family History: Family history: Cardiovascular disease 03 FATHER 03 MOTHER Allergies and Home Medications Allergies Coded Allergies: No Known Drug Allergies (Unverified , 07/29/12) Home Medications Amlodipine Besylate 5 Mg Tablet, 5 MG PO DAILY, (Reported) Aspirin 81 Mg Tablet.dr, 81 MG PO DAILY, (Reported) Calcium Carbonate/Vitamin D3 1 Each Tablet, 2 TAB PO DAILY, (Reported) Estradiol 1 Mg Tablet, 1 MG PO DAILY, (Reported) Patient Home Medication List Home Medication List Reviewed: Yes Physical Exam-Cardiology Physical Exam Vital Signs/I&O 10/02/19 10/02/19 10/02/19 10/02/19 03:00 04:00 04:00 04:32 Temp 36.6 Pulse 105 109 108 Resp 19 26 20 B/P (MAP) 97/64 (75) 113/70 (84) Pulse Ox 95 98 89 O2 Delivery NIV Bilevel NIV Bilevel Vapotherm O2 Flow Rate 40.00 40.00 40.00 55.00 10/02/19 10/02/19 10/02/19 10/02/19 04:35 04:35 04:42 05:00 Pulse 108 106 105 Resp 21 18 19 B/P (MAP) 100/60 (73) Pulse Ox 91 91 94 O2 Delivery Vapotherm Vapotherm Vapotherm Vapotherm O2 Flow Rate 40.00 40.00 40.00 40.00 60.00 70.00 70.00 FiO2 55 10/02/19 10/02/19 10/02/19 10/02/19 06:00 06:34 06:39 06:42 Pulse 101 105 106 Resp 12 21 B/P (MAP) 96/64 (75) Pulse Ox 95 97 O2 Delivery Vapotherm High Flow N/C O2 Flow Rate 40.00 30.00 6.00 70.00 50.00 10/02/19 10/02/19 10/02/19 10/02/19 07:00 08:00 08:00 08:43 Pulse 105 112 Resp 19 33 B/P (MAP) 106/66 (79) 97/58 (71) Pulse Ox 97 99 95 O2 Delivery High Flow N/C High Flow N/C Vapotherm Vapotherm O2 Flow Rate 6.00 6.00 30.00 30.00 FiO2 40 40 10/02/19 10/02/19 10/02/19 10/02/19 09:00 10:00 11:00 12:00 Pulse 109 105 104 Resp 24 13 19 B/P (MAP) 94/58 (70) 113/66 (82) 105/66 (79) Pulse Ox 97 97 92 O2 Delivery High Flow N/C High Flow N/C High Flow N/C Vapotherm O2 Flow Rate 6.00 6.00 6.00 30.00 FiO2 40 10/02/19 10/02/19 10/02/19 10/02/19 12:00 13:00 14:00 14:22 Pulse 106 109 105 Resp 10 18 20 B/P (MAP) 115/70 (85) 98/62 (74) 96/63 (74) Pulse Ox 96 97 97 93 O2 Delivery High Flow N/C High Flow N/C High Flow N/C Vapotherm O2 Flow Rate 6.00 6.00 6.00 25.00 FiO2 40 10/02/19 00:00 Intake Total 2250 ml Output Total 2600 ml Balance -350 ml Capillary Refill : Less Than 3 Seconds Constitutional: appears stated age, AAO x 3, apparent distress, well-developed, well-nourished HEENT: PERRL; No discharge; hearing is well preserved, oral hygience is good; No ulceration, No xanthelasmas are seen Neck: No carotid bruit; carotid pulses are 2 + bilaterally Respiratory: accessory muscle use, respiratory distress, chest is bilaterally symmetric, crackles, other (decreased breath sounds bilaterally.) Cardiovascular: regular rate-rhythm, tachycardia, S1 and S2 Gastrointestinal: soft, audible bowel sounds; No spleenomegaly Rectal: deferred Extremities: normal range of motion, non-tender, normal inspection, pedal edema; No clubbing, No cyanosis, No significant edema Neurologic/Psychiatric: no motor/sensory deficits, alert, normal mood/affect, oriented x 3, power is 5/5 both on sides Skin: normal color, warm/dry Data Review Labs Laboratory Tests 10/02/19 03:50: B-Type Natriuretic Peptide 2786.2H 10/02/19 03:52: White Blood Count 7.0, Red Blood Count 3.32L, Hemoglobin 10.2L, Hematocrit 32L, Mean Corpuscular Volume 97, Mean Corpuscular Hemoglobin 31, Mean Corpuscular Hemoglobin Concent 32, Red Cell Distribution Width 13.7, Platelet Count 280, Mean Platelet Volume 10.3, Neutrophils (%) (Auto) 72, Lymphocytes (%) (Auto) 18, Monocytes (%) (Auto) 9, Eosinophils (%) (Auto) 0, Basophils (%) (Auto) 0, Neutr ophils # (Auto) 5.0, Lymphocytes # (Auto) 1.3, Monocytes # (Auto) 0.6, Eosinophils # (Auto) 0.0, Basophils # (Auto) 0.0, Sodium Level 142, Potassium Level 4.1, Chloride Level 111H, Carbon Dioxide Level 17L, Anion Gap 14, Blood Urea Nitrogen 25H, Creatinine 1.56H, Estimat Glomerular Filtration Rate 31, BUN/Creatinine Ratio 16, Glucose Level 130H, Calcium Level 8.4L, Phosphorus Level 4.0, Magnesium Level 1.8, Troponin I 1.114*H, Triglycerides Level 103, Cholesterol Level 168, LDL Cholesterol Direct 98, VLDL Cholesterol 21, HDL Cholesterol 55 10/02/19 04:08: Blood Gas Puncture Site RIGHT RADIAL, Blood Gas Patient Temperature 36.9, Arterial Blood pH 7.46H, Arterial Blood Partial Pressure CO2 28L, Arterial Blood Partial Pressure O2 97H, Arterial Blood HCO3 19L, Arterial Blood Total CO2 19.9L , Arterial Blood Oxygen Saturation 99, Arterial Blood Base Excess -4.2L, Hira Test YES-POS, Blood Gas Ventilator Setting NO, Blood Gas Inspired Oxygen 40% 10/02/19 05:58: Lactic Acid Level 1.70 Microbiology 10/01/19 Blood Culture - Preliminary, Resulted No growth 10/01/19 Urine Culture - Preliminary, Resulted Probable Klebsiella/Enterobact 09/30/19 Influenza Types A,B Antigen ([place]) - Final, Complete ECG Impression ECG Initial ECG Rhythm: S.Tach Comment Left bundle branch block. A/P-Cardiology Assessment/Admission Diagnosis Acute respiratory failure, Acute congestive heart failure, Non-STEMI, Hypertension Plan Acute respiratory failure, likely multifactorial. Acute congestive heart failure, IV Lasix. Echocardiogram. Fluid restriction. Non-STEMI, serial cardiac enzymes. I discussed at length with the patient and family. I recommended coronary angiography. The patient would not like cardiac surgery. Therefore if there is something that we can intervene on she would like to be intervened during coronary angiography. 1-2 percent risk of complication was discussed. She accepted the risks and gave informed consent. However due to significant respiratory distress, I will wait for her to improve from her acute respiratory failure before we proceed. She understands. Hypertension Thank you for your consultation. Please call me if you have any questions. Tosha Berg MD, FACP, FACC, FSCAI, FHRS, CCDS Interventional Cardiology Cardiac Electrophysiology Vascular Medicine and Endovascular Interventions Clinical Quality Measures DVT/VTE Risk/Contraindication: Risk Factor Score Per Nursin RFS Level Per Nursing on Admit: 4+=Very High Uday BERG MD Oct 01, 2019 16:06
[2019-10-02] VITALS (27 sets, daily range): BP systolic 88–116; BP diastolic 52–76
[2019-10-02] MEDS ORDERED: AZITHROMYCIN INJECTION 500 MG in NS (IVPB) 250 ML IV SCH ×2
[2019-10-02] MEDS: cefTRIAXone FOR IV USE 1,000 MG in WATER (STERILE) FOR INJECTION 10 ML IV SCH ×2 (00:31→23:17)
--- NOTE | 2019-10-02 00:54 | NUR ---
2129-WHEN CHECKING ON PT I NOTICED PT BREATHING WAS LABORED WITH ABD RETRACTIONS. SPOKE WITH RT-RT TO ROOM FOR BREATHING TREATMENT. 2329-PT O2 DROPPING INTO 87-89% ON 4L NC. CRACKLES IN BILATERAL UPPER LOBES. PT HAVING LABORED BREATHING WITH ABD RETRACTIONS. PT STATING "I CANT BREATHE". SPOKE WITH RT-RT TO ROOM TO ASSESS PT. PT REFUSING TO WEAR BIPAP. PT PLACED ON VAPOTHERM 35L AT 50%FIO2. 9-CHECKED ON PT. PT STILL HAVING DIFFICULTY BREATHING. CONVINCED PT TO WEAR BIPAP. RT TO ROOM TO PLACE BIPAP. 51-SPOKE TO E-ICU AND INFORMED THEM OF ABOVE FINDINGS AND THAT PT IS RESTING COMFORTABLY AT THIS TIME. WILL CONTINUE TO MONITOR PT AT THIS TIME AND AWAIT ORDERS.
[2019-10-02] MEDS: NS W/KCL 20 MEQ/L 1,000 ML IV SCH (01:13)
[2019-10-02] MEDS: RT-ALBUTEROL/IPRATROPIUM 3 ML (DUONEB) VIAL INH SCH ×4 (01:52→21:52)
[2019-10-02] MEDS: NOREPINEPHRINE 4 MG/250 ML 250 ML IV SCH ×3 (01:57→22:30)
[2019-10-02] MEDS ORDERED: FUROSEMIDE 40 MG/4 ML INJ (LASIX) IV ONE (02:00)
[2019-10-02 04:13] LABS: BASOPHILS % (AUTO) 0 % (0-10); EOSINOPHILS % (AUTO) 0 % (0-10); HEMATOCRIT 32 % (35-52); HEMOGLOBIN 10.2 G/DL (11.5-16.0); LYMPHOCYTES # (AUTO) 1.3 X 10^3 (1.0-4.0); LYMPHOCYTES % (AUTO) 18 % (12-44); MEAN CORPUSCULAR HEMOGLOBIN 31 PG (25-34); MEAN CORPUSCULAR HGB CONC 32 G/DL (32-36); MEAN CORPUSCULAR VOLUME 97 FL (80-99); MEAN PLATELET VOLUME 10.3 FL (7.4-10.4); MONOCYTES # (AUTO) 0.6 X 10^3 (0.0-1.0); MONOCYTES % (AUTO) 9 % (0-12); NEUTROPHILS % (AUTO) 72 % (42-75); PLATELET COUNT 280 10^3/uL (130-400); RED CELL DISTRIBUTION WIDTH 13.7 % (10.0-14.5)
[2019-10-02 04:14] LABS: ABG BASE EXCESS -4.2 MMOL/L (-2.5-2.5); ABG OXYGEN SATURATION 99 % (94-100); ABG PCO2 28 MMHG (35-45); ABG PH 7.46 (7.37-7.43); ABG PO2 97 MMHG (79-93); ABG TCO2 19.9 MMOL/L (21.0-31.0)
[2019-10-02 04:15] LABS: ALLENS TEST YES-POS; INSPIRED O2 40%; PATIENT TEMP 36.9; VENTILATOR NO
[2019-10-02 04:32] LABS: CALCIUM 8.4 MG/DL (8.5-10.1); CREATININE SERUM 1.56 MG/DL (0.60-1.30); MAGNESIUM 1.8 MG/DL (1.6-2.4); POTASSIUM 4.1 MMOL/L (3.6-5.0)
--- NOTE | 2019-10-02 05:48 | Pulmonary Progress Note ---
Subjective Time Seen by a Provider: 10:21 Subjective/Events-last exam Pt is on Vapotherm currently. Sepsis Event Evaluation Height, Weight, BMI Height: 5'3.00" Weight: 142lbs. oz. 64.339353pn; 23.00 BMI Method:Stated Focused Exam Lactate Level 09/30/19 23:49: Lactic Acid Level 2.24*H 10/01/19 02:57: Lactic Acid Level 2.41*H Time of Focused Exam: 02:38 Exam Exam Vital Signs Date Time Temp Pulse Resp B/P (MAP) Pulse Ox O2 Delivery O2 Flow Rate FiO2 10/02/19 05:00 105 19 100/60 (73) 94 Vapotherm 40.00 70.00 10/02/19 04:42 106 18 91 Vapotherm 40.00 70.00 10/02/19 04:35 108 21 91 Vapotherm 40.00 60.00 10/02/19 04:35 Vapotherm 40.00 55 10/02/19 04:32 108 20 89 Vapotherm 40.00 55.00 10/02/19 04:00 109 26 113/70 (84) 98 NIV Bilevel 40.00 10/02/19 03:00 105 19 97/64 (75) 95 NIV Bilevel 40.00 10/02/19 02:00 107 19 97/64 (75) 91 NIV Bilevel 40.00 10/02/19 01:52 107 21 94 40.00 10/02/19 01:00 109 21 116/76 (89) 95 NIV Bilevel 40.00 10/02/19 01:00 111 10/02/19 00:31 36.6 NIV Bilevel 40.00 10/02/19 00:20 111 23 94 NIV Bilevel 40.00 10/02/19 00:20 NIV Bilevel 40 10/02/19 00:15 111 22 94 40.00 10/02/19 00:00 114 22 95/59 (71) 93 Vapotherm 35.00 50.00 10/01/19 23:39 112 16 91 Vapotherm 35.00 50.00 10/01/19 23:00 117 26 106/59 (75) 93 Nasal Cannula 4.00 10/01/19 22:00 110 21 108/67 (81) 94 Nasal Cannula 4.00 10/01/19 21:34 110 16 98 Nasal Cannula 4.00 10/01/19 21:29 94 Nasal Cannula 4.00 10/01/19 21:00 107 18 108/68 (81) 92 High Flow N/C 3.00 10/01/19 20:15 High Flow N/C 4.00 10/01/19 20:00 37.4 10/01/19 20:00 112 24 105/72 (83) 93 High Flow N/C 3.00 10/01/19 19:00 111 10/01/19 19:00 111 22 100/64 (76) 92 High Flow N/C 3.00 10/01/19 18:00 112 23 101/57 (72) 93 High Flow N/C 3.00 10/01/19 17:00 112 21 107/72 (84) 93 High Flow N/C 3.00 10/01/19 16:07 91 Nasal Cannula 2.00 10/01/19 16:00 37.7 10/01/19 16:00 112 28 108/74 (85) 94 High Flow N/C 3.00 10/01/19 16:00 High Flow N/C 4 10/01/19 15:00 112 17 107/71 (83) 95 High Flow N/C 3.00 10/01/19 14:00 105 19 95/60 (72) 95 High Flow N/C 3.00 10/01/19 13:00 102 23 94/63 (73) 94 High Flow N/C 3.00 10/01/19 13:00 101 10/01/19 12:00 108 15 94/64 (74) 94 High Flow N/C 3.00 10/01/19 12:00 High Flow N/C 10 10/01/19 11:50 37.0 10/01/19 11:00 107 23 102/64 (77) 93 High Flow N/C 3.00 10/01/19 10:57 High Flow N/C 3.00 10/01/19 10:00 105 21 105/68 (80) 94 High Flow N/C 6.00 10/01/19 09:45 High Flow N/C 6.00 10/01/19 09:40 35.9 94 93 10/01/19 09:36 95 High Flow N/C 10.00 10/01/19 09:00 100 21 113/72 (86) 95 High Flow N/C 10.00 10/01/19 08:00 96 12 105/65 (78) 96 High Flow N/C 10.00 10/01/19 08:00 High Flow N/C 10 10/01/19 07:00 105 10/01/19 07:00 105 20 112/70 (84) 94 High Flow N/C 10.00 10/01/19 06:37 94 14 93 High Flow N/C 10.00 10/01/19 06:25 93 18 92 High Flow N/C 6.00 10/01/19 06:00 95 21 106/67 (80) 100 High Flow N/C 5.00 10/01/19 06:00 High Flow N/C 5.00 I & O 10/02/19 07:00 Intake Total 2260 ml Output Total 3200 ml Balance -940 ml Height & Weight Height: 5'3.00" Weight: 142lbs. oz. 64.530599rb; 23.00 BMI Method:Stated General Appearance: No Apparent Distress, WD/WN HEENT: PERRL/EOMI, Moist Mucous Membranes; No Scleral Icterus (L), No Scleral Icterus (R) Neck: Normal Inspection, Supple; No Thyromegaly Respiratory: Lungs Clear, No Accessory Muscle Use, No Respiratory Distress Cardiovascular: No Edema, No JVD, No Murmur, Tachycardia Capillary Refill: Less Than 3 Seconds Peripheral Pulses: 2+ Radial Pulses (R), 2+ Radial Pulses (L) Gastrointestinal: normal bowel sounds, non tender, soft Extremity: Normal Capillary Refill, No Calf Tenderness, No Pedal Edema Neurologic/Psychiatric: Alert, Oriented x3 Skin: Normal Color, Warm/Dry Results Lab Laboratory Tests 09/30/19 23:49 10/01/19 04:00 10/02/19 03:52 Assessment/Plan Assessment/Plan Acute respiratory failure with hypoxia -PT is currently on BiPAP -CT of chest reviewed -Check bilateral dopplers Bilateral pleural effusions - echocardiogram Metabolic lactic acidosis probably secondary to hypoxia -- Doubt sepsis -Monitor -BNP is >2000 Atelectasis doubt PNA -No fever, no leukocytosis -No productive cough NSTEMI -Cardiology following -Possible cardiac cath today MOOK ROBERTS DO Oct 02, 2019 05:48
[2019-10-02] MEDS: VASOPRESSIN INJECTION 20 UNIT in NORMAL SALINE 100 ML IV SCH ×3 (06:35→22:30)
[2019-10-02] MEDS ORDERED: HEParin (CATH LAB) 0 ML IV ONE (06:49)
[2019-10-02] MEDS ORDERED: LIDOCAINE 1% INJ 20 ML 20 ML VIAL ONE (06:49)
--- NOTE | 2019-10-02 08:01 | Diagnostic Imaging Report ---
EXAMINATION: Chest 1 view HISTORY: Heart failure COMPARISON: 10/01/2019 FINDINGS: There is bibasilar atelectasis or pneumonia. Small bilateral pleural effusions are seen. No pneumothorax. There is mild interstitial edema. Heart size is normal. IMPRESSION: 1. Bibasilar atelectasis or pneumonia. 2. Mild pulmonary edema. Dictated by: Dictated on workstation # [id number]
[2019-10-02] MEDS: FUROSEMIDE 40 MG/4 ML INJ (LASIX) IVP SCH (08:41)
[2019-10-02] MEDS: ASPIRIN E.C. 81 MG (ECOTRIN) TAB PO SCH (08:41)
--- NOTE | 2019-10-02 09:05 | Progress Note - Hospitalist ---
Subjective HPI/CC On Admission Date Seen by Provider: Oct 02, 2019 Time Seen by Provider: 09:04 Is an 84-year-old female the past medical history of hypertension who presented to the emergency department with shortness of breath. She states that her symptoms started on September 28 and have gradually progressed. She states she was lying down in bed last night and woke up short of breath. She was able to walk to the living room but remained very short of breath so called EMS via her life. Per notes EMS could hear crackles from across the room. She was given a breathing treatment without improvement and was placed on BiPAP in the emergency room. This helped improved her symptoms and she was also given Lasix. This morning she is off BiPAP and says she feels much better. His found to have an elevated troponin and elevated BNP but reports no history of heart disease or heart failure. Subjective/Events-last exam Pt reports feeling better this AM. Had some worsening shortness of breath overnight and went back on BiPAP. Focused Exam Lactate Level 09/30/19 23:49: Lactic Acid Level 2.24*H 10/01/19 02:57: Lactic Acid Level 2.41*H 10/02/19 05:58: Lactic Acid Level 1.70 Time of Focused Exam: 02:38 Lactic Acid Level Laboratory Tests Test 10/02/19 05:58 Lactic Acid Level 1.70 MMOL/L (0.50-2.00) Objective Exam Vital Signs Vital Signs Date Time Temp Pulse Resp B/P (MAP) Pulse Ox O2 Delivery O2 Flow Rate FiO2 10/02/19 08:43 95 Vapotherm 30.00 40 10/02/19 06:42 106 21 10/02/19 04:00 36.6 Capillary Refill : Less Than 3 Seconds General Appearance: No Apparent Distress Respiratory: No Respiratory Distress, Crackles Cardiovascular: Regular Rate, Rhythm, No Murmur Neurologic/Psychiatric: Alert, Oriented x3 Results/Procedures Lab Laboratory Tests 10/02/19 03:52 Patient resulted labs reviewed. Imaging: Reviewed Imaging Report Assessment/Plan Assessment and Plan Assess & Plan/Chief Complaint Acute Respiratory Failure- doubt PNA, not sepsis NSTEMI CHF Bilateral pleural effusions BNP elevated, echo ordered and results pending On vapotherm Troponin trending up, plan for cath today Continue Lasix Cardiology consulted, appreciate recs Pulm consulted, appreciate recs HTN Mildly hypotensive hold home meds elevated d-dimer Lovenox negative CTA negative bilateral lower extremities Clinical Quality Measures DVT/VTE Risk/Contraindication: Risk Factor Score Per Nursin RFS Level Per Nursing on Admit: 4+=Very High DADA BEY MD Oct 02, 2019 09:05
[2019-10-02] MEDS: ENOXAPARIN 60 MG/0.6 ML (LOVENOX) SYR SC SCH (10:06)
--- NOTE | 2019-10-02 10:55 | NUR ---
Pastoral care visit.
--- NOTE | 2019-10-02 14:51 | Cardiology Progress Note ---
Cardiology SOAP Progress Note Subjective: Significantly short of breath. Worsening respiratory status overnight. Objective: I&O/Vital Signs 10/02/19 10/02/19 10/02/19 10/02/19 03:00 04:00 04:00 04:32 Temp 36.6 Pulse 105 109 108 Resp 19 26 20 B/P (MAP) 97/64 (75) 113/70 (84) Pulse Ox 95 98 89 O2 Delivery NIV Bilevel NIV Bilevel Vapotherm O2 Flow Rate 40.00 40.00 40.00 55.00 10/02/19 10/02/19 10/02/19 10/02/19 04:35 04:35 04:42 05:00 Pulse 108 106 105 Resp 21 18 19 B/P (MAP) 100/60 (73) Pulse Ox 91 91 94 O2 Delivery Vapotherm Vapotherm Vapotherm Vapotherm O2 Flow Rate 40.00 40.00 40.00 40.00 60.00 70.00 70.00 FiO2 55 10/02/19 10/02/19 10/02/19 10/02/19 06:00 06:34 06:39 06:42 Pulse 101 105 106 Resp 12 21 B/P (MAP) 96/64 (75) Pulse Ox 95 97 O2 Delivery Vapotherm High Flow N/C O2 Flow Rate 40.00 30.00 6.00 70.00 50.00 10/02/19 10/02/19 10/02/19 10/02/19 07:00 08:00 08:00 08:43 Pulse 105 112 Resp 19 33 B/P (MAP) 106/66 (79) 97/58 (71) Pulse Ox 97 99 95 O2 Delivery High Flow N/C High Flow N/C Vapotherm Vapotherm O2 Flow Rate 6.00 6.00 30.00 30.00 FiO2 40 40 10/02/19 10/02/19 10/02/19 10/02/19 09:00 10:00 11:00 12:00 Pulse 109 105 104 Resp 24 13 19 B/P (MAP) 94/58 (70) 113/66 (82) 105/66 (79) Pulse Ox 97 97 92 O2 Delivery High Flow N/C High Flow N/C High Flow N/C Vapotherm O2 Flow Rate 6.00 6.00 6.00 30.00 FiO2 40 10/02/19 10/02/19 10/02/19 10/02/19 12:00 13:00 14:00 14:22 Pulse 106 109 105 Resp 10 18 20 B/P (MAP) 115/70 (85) 98/62 (74) 96/63 (74) Pulse Ox 96 97 97 93 O2 Delivery High Flow N/C High Flow N/C High Flow N/C Vapotherm O2 Flow Rate 6.00 6.00 6.00 25.00 FiO2 40 10/02/19 00:00 Intake Total 2250 ml Output Total 2600 ml Balance -350 ml Weight (Pounds): 142 Weight (Calculated Kilograms): 64.701371 Constitutional: appears stated age, AAO x 3, apparent distress, well-developed, well-nourished Respiratory: accessory muscle use, respiratory distress, chest is bilaterally symmetric, crackles, other (decreased breath sounds bilaterally.) Cardiovascular: regular rate-rhythm, tachycardia, S1 and S2 Gastrointestional: soft, audible bowel sounds; No spleenomegaly Extremities: normal range of motion, non-tender, normal inspection, pedal edema; No clubbing, No cyanosis, No significant edema Neurologic/Psychiatric: no motor/sensory deficits, alert, normal mood/affect, oriented x 3, power is 5/5 both on sides Skin: normal color, warm/dry Results/Procedures: Labs Laboratory Tests 10/02/19 03:50: B-Type Natriuretic Peptide 2786.2H 10/02/19 03:52: White Blood Count 7.0, Red Blood Count 3.32L, Hemoglobin 10.2L, Hematocrit 32L, Mean Corpuscular Volume 97, Mean Corpuscular Hemoglobin 31, Mean Corpuscular Hemoglobin Concent 32, Red Cell Distribution Width 13.7, Platelet Count 280, Mean Platelet Volume 10.3, Neutrophils (%) (Auto) 72, Lymphocytes (%) (Auto) 18, Monocytes (%) (Auto) 9, Eosinophils (%) (Auto) 0, Basophils (%) (Auto) 0, Neutrophils # (Auto) 5.0, Lymphocytes # (Auto) 1.3, Monocytes # (Auto) 0.6, Eosinophils # (Auto) 0.0, Basophils # (Auto) 0.0, Sodium Level 142, Potassium Level 4.1, Chloride Level 111H, Carbon Dioxide Level 17L, Anion Gap 14, Blood Urea Nitrogen 25H, Creatinine 1.56H, Estimat Glomerular Filtration Rate 31, BUN/Creatinine Ratio 16, Glucose Level 130H, Calcium Level 8.4L, Phosphorus Level 4.0, Magnesium Level 1.8, Troponin I 1.114*H, Triglycerides Level 103, Cholesterol Level 168, LDL Cholesterol Direct 98, VLDL Cholesterol 21, HDL Cholesterol 55 10/02/19 04:08: Blood Gas Puncture Site RIGHT RADIAL, Blood Gas Patient Temperature 36.9, Arterial Blood pH 7.46H, Arterial Blood Partial Pressure CO2 28L, Arterial Blood Partial Pressure O2 97H, Arterial Blood HCO3 19L, Arterial Blood Total CO2 19.9L , Arterial Blood Oxygen Saturation 99, Arterial Blood Base Excess -4.2L, Hira Test YES-POS, Blood Gas Ventilator Setting NO, Blood Gas Inspired Oxygen 40% 10/02/19 05:58: Lactic Acid Level 1.70 Microbiology 10/01/19 Blood Culture - Preliminary, Resulted No growth 10/01/19 Urine Culture - Preliminary, Resulted Probable Klebsiella/Enterobact 09/30/19 Influenza Types A,B Antigen ([place]) - Final, Complete A/P: Assessment/Dx: Acute respiratory failure, Acute congestive heart failure, Non-STEMI, Hypertension Plan: Acute respiratory failure, likely multifactorial. Worsening respiratory status overnight. On Vapotherm. Acute congestive heart failure, IV Lasix. Echocardiogram. Fluid restriction. Non-STEMI, serial cardiac enzymes. I discussed at length with the patient and family. I recommended coronary angiography. The patient would not like cardiac surgery. Therefore if there is something that we can intervene on she would like to be intervened during coronary angiography. 1-2 percent risk of complication was discussed. She accepted the risks and gave informed consent. However due to significant respiratory distress, I will wait for her to improve from her acute respiratory failure before we proceed. She understands. Hypertension Thank you for your consultation. Please call me if you have any questions. Tosha Berg MD, FACP, FACC, FSCAI, FHRS, CCDS Interventional Cardiology Cardiac Electrophysiology Vascular Medicine and Endovascular Interventions Focused Exam Lactate Level 09/30/19 23:49: Lactic Acid Level 2.24*H 10/01/19 02:57: Lactic Acid Level 2.41*H 10/02/19 05:58: Lactic Acid Level 1.70 Time of Focused Exam: 02:38 Uday BERG MD Oct 02, 2019 14:51
--- NOTE | 2019-10-02 18:00 | NUR ---
THIS NURSE RESUMED CARE OF PT AT 1745. PT HAS NO COMPLAINTS. THIS NURSE AGREES WITH PREVIOUS NURSE ASSESSMENT.
[2019-10-03] VITALS (22 sets, daily range): BP systolic 88–119; BP diastolic 51–81
[2019-10-03] MEDS: RT-ALBUTEROL/IPRATROPIUM 3 ML (DUONEB) VIAL INH SCH ×4 (03:23→19:57)
[2019-10-03 03:52] LABS: BASOPHILS % (AUTO) 1 % (0-10); EOSINOPHILS # (AUTO) 0.4 10^3/uL (0.0-0.3); EOSINOPHILS % (AUTO) 7 % (0-10); HEMATOCRIT 34 % (35-52); LYMPHOCYTES # (AUTO) 2.2 X 10^3 (1.0-4.0); LYMPHOCYTES % (AUTO) 37 % (12-44); MEAN CORPUSCULAR HEMOGLOBIN 31 PG (25-34); MEAN CORPUSCULAR HGB CONC 32 G/DL (32-36); MEAN CORPUSCULAR VOLUME 97 FL (80-99); MEAN PLATELET VOLUME 10.3 FL (7.4-10.4); MONOCYTES # (AUTO) 0.8 X 10^3 (0.0-1.0); MONOCYTES % (AUTO) 13 % (0-12); NEUTROPHILS # (AUTO) 2.5 X 10^3 (1.8-7.8); NEUTROPHILS % (AUTO) 43 % (42-75); PLATELET COUNT 301 10^3/uL (130-400); RED CELL DISTRIBUTION WIDTH 13.5 % (10.0-14.5); WHITE BLOOD COUNT 5.9 10^3/uL (4.3-11.0)
[2019-10-03 04:26] LABS: CALCIUM 8.6 MG/DL (8.5-10.1); CREATININE SERUM 1.66 MG/DL (0.60-1.30); MAGNESIUM 1.9 MG/DL (1.6-2.4); PHOSPHORUS 4.5 MG/DL (2.3-4.7); POTASSIUM 3.8 MMOL/L (3.6-5.0)
[2019-10-03] MEDS: VASOPRESSIN INJECTION 20 UNIT in NORMAL SALINE 100 ML IV SCH (04:55)
--- NOTE | 2019-10-03 05:03 | Pulmonary Progress Note ---
Subjective Date Seen by a Provider: Oct 03, 2019 Time Seen by a Provider: 05:00 Subjective/Events-last exam PT appears improved respiratory burr. Sepsis Event Evaluation Height, Weight, BMI Height: 5'3.00" Weight: 142lbs. oz. 64.114449ud; 23.00 BMI Method:Stated Focused Exam Lactate Level 09/30/19 23:49: Lactic Acid Level 2.24*H 10/01/19 02:57: Lactic Acid Level 2.41*H 10/02/19 05:58: Lactic Acid Level 1.70 Time of Focused Exam: 02:38 Exam Exam Vital Signs Date Time Temp Pulse Resp B/P (MAP) Pulse Ox O2 Delivery O2 Flow Rate FiO2 10/03/19 04:00 98 22 112/65 (81) 100 Vapotherm 25.00 40.00 10/03/19 03:35 100 Vapotherm 25.00 40 10/03/19 03:34 37.3 Vapotherm 25.00 40.00 10/03/19 03:25 100 Vapotherm 25.00 40 10/03/19 03:00 101 16 103/64 (77) 97 Vapotherm 25.00 40.00 10/03/19 02:00 90 13 104/69 (81) 99 Vapotherm 25.00 40.00 10/03/19 01:00 103 20 112/60 (77) 95 Vapotherm 25.00 40.00 10/03/19 01:00 103 10/03/19 00:00 97 20 99/57 (71) 99 Vapotherm 25.00 40.00 10/02/19 23:25 99 Vapotherm 25.00 40 10/02/19 23:15 37.0 Vapotherm 25.00 40.00 10/02/19 23:00 93 18 106/66 (79) 99 Vapotherm 25.00 40.00 10/02/19 22:00 101 10 101/65 (77) 100 Vapotherm 25.00 40.00 10/02/19 21:54 98 Vapotherm 25.00 40 10/02/19 21:00 98 19 107/69 (82) 90 Vapotherm 25.00 40.00 10/02/19 20:00 104 26 101/58 (72) 98 Vapotherm 25.00 40.00 10/02/19 19:20 97 Vapotherm 25.00 40 10/02/19 19:15 37.8 105 24 105/68 (80) 97 Vapotherm 25.00 40.00 10/02/19 19:00 107 21 98/52 (67) 100 Vapotherm 25.00 40.00 10/02/19 19:00 107 10/02/19 18:00 108 23 88/71 (77) 95 High Flow N/C 6.00 10/02/19 17:00 102 23 99/73 (82) 94 High Flow N/C 6.00 10/02/19 16:00 Vapotherm 30.00 40 10/02/19 16:00 37.4 10/02/19 16:00 110 20 99/71 (80) 95 High Flow N/C 6.00 10/02/19 15:00 107 18 115/71 (86) 93 High Flow N/C 6.00 10/02/19 14:22 93 Vapotherm 25.00 40 10/02/19 14:00 105 20 96/63 (74) 97 High Flow N/C 6.00 10/02/19 13:00 109 18 98/62 (74) 97 High Flow N/C 6.00 10/02/19 12:55 106 10/02/19 12:00 106 10 115/70 (85) 96 High Flow N/C 6.00 10/02/19 12:00 Vapotherm 30.00 40 10/02/19 11:00 104 19 105/66 (79) 92 High Flow N/C 6.00 10/02/19 10:00 105 13 113/66 (82) 97 High Flow N/C 6.00 10/02/19 09:00 109 24 94/58 (70) 97 High Flow N/C 6.00 10/02/19 08:43 95 Vapotherm 30.00 40 10/02/19 08:00 Vapotherm 30.00 40 10/02/19 08:00 112 33 97/58 (71) 99 High Flow N/C 6.00 10/02/19 07:00 105 19 106/66 (79) 97 High Flow N/C 6.00 10/02/19 06:42 106 21 97 High Flow N/C 6.00 10/02/19 06:39 105 10/02/19 06:34 30.00 50.00 10/02/19 06:00 101 12 96/64 (75) 95 Vapotherm 40.00 70.00 I & O 10/03/19 07:00 Intake Total 1445 ml Output Total 2450 ml Balance -1005 ml Height & Weight Height: 5'3.00" Weight: 142lbs. oz. 64.246481ys; 23.00 BMI Method:Stated General Appearance: WD/WN, Anxious, Chronically ill, Mild Distress, Thin HEENT: PERRL/EOMI, Moist Mucous Membranes; No Scleral Icterus (L), No Scleral Icterus (R) Neck: Normal Inspection, Supple; No Thyromegaly Respiratory: No Accessory Muscle Use, No Respiratory Distress, Crackles, Decreased Breath Sounds Cardiovascular: No Edema, No JVD, No Murmur, Tachycardia Capillary Refill: Less Than 3 Seconds Peripheral Pulses: 2+ Radial Pulses (R), 2+ Radial Pulses (L) Gastrointestinal: normal bowel sounds, non tender, soft Extremity: Normal Capillary Refill, No Calf Tenderness, No Pedal Edema Neurologic/Psychiatric: Alert, Oriented x3 Skin: Normal Color, Warm/Dry Lymphatic: No Adenopathy Results Lab Laboratory Tests 10/02/19 03:52 10/03/19 03:25 Assessment/Plan Assessment/Plan Acute respiratory failure with hypoxia -PT is currently on Vapotherm -SOB improved Bilateral pleural effusions - echocardiogram Acute CHF -cardiology following Metabolic lactic acidosis probably secondary to hypoxia -- Doubt sepsis -Monitor Atelectasis doubt PNA -No fever, no leukocytosis -No productive cough Acute renal failure - worsening -Hold lasix secondary to renal function. NSTEMI -Cardiology following -Possible cardiac cath today MOOK ROBERTS DO Oct 03, 2019 05:03
[2019-10-03] MEDS ORDERED: POTASSIUM CL 10MEQ/50ML IVPB 50 ML IV SCH (06:00)
[2019-10-03] MEDS ORDERED: KCL 20 MEQ TAB (K-DUR) PO SCH (06:00)
[2019-10-03] MEDS ORDERED: MAGNESIUM 1 GM/100 ML IVPB 100 ML IV SCH (06:00)
[2019-10-03] MEDS: ASPIRIN E.C. 81 MG (ECOTRIN) TAB PO SCH (08:01)
--- NOTE | 2019-10-03 08:50 | Progress Note - Hospitalist ---
Subjective HPI/CC On Admission Date Seen by Provider: Oct 03, 2019 Time Seen by Provider: 08:45 Is an 84-year-old female the past medical history of hypertension who presented to the emergency department with shortness of breath. She states that her symptoms started on September 28 and have gradually progressed. She states she was lying down in bed last night and woke up short of breath. She was able to walk to the living room but remained very short of breath so called EMS via her life. Per notes EMS could hear crackles from across the room. She was given a breathing treatment without improvement and was placed on BiPAP in the emergency room. This helped improved her symptoms and she was also given Lasix. This morning she is off BiPAP and says she feels much better. His found to have an elevated troponin and elevated BNP but reports no history of heart disease or heart failure. Subjective/Events-last exam Patient reports breathing better today. No complaints. Family is at bedside and requesting information about discharge planning and possibly home health services. Plan is for cardiac catheter today. Focused Exam Lactate Level 09/30/19 23:49: Lactic Acid Level 2.24*H 10/01/19 02:57: Lactic Acid Level 2.41*H 10/02/19 05:58: Lactic Acid Level 1.70 Time of Focused Exam: 02:38 Objective Exam Vital Signs Vital Signs Date Time Temp Pulse Resp B/P (MAP) Pulse Ox O2 Delivery O2 Flow Rate FiO2 10/03/19 08:10 99 Vapotherm 15.00 40 10/03/19 08:00 97 14 109/69 (82) 10/03/19 07:32 37.5 Capillary Refill : Less Than 3 Seconds General Appearance: No Apparent Distress, WD/WN Respiratory: Lungs Clear, No Respiratory Distress Cardiovascular: Regular Rate, Rhythm, No Murmur Gastrointestinal: Normal Bowel Sounds, Soft Neurologic/Psychiatric: Alert, Oriented x3 Results/Procedures Lab Laboratory Tests 10/03/19 03:25 Patient resulted labs reviewed. Imaging: Reviewed Imaging Report Assessment/Plan Assessment and Plan Assess & Plan/Chief Complaint Acute Respiratory Failure- doubt PNA, not sepsis NSTEMI CHF Bilateral pleural effusions BNP elevated, echo ordered and results pending On vapotherm still Elevated troponin, plan for cath today Continue Lasix Cardiology consulted, appreciate recs Pulm consulted, appreciate recs HTN Mildly hypotensive still hold home meds elevated d-dimer Lovenox negative CTA negative bilateral lower extremities Discharge planning: Poultry Farm Manager consulted. may need skilled placement. Diagnosis/Problems Diagnosis/Problems (1) OSIEL (acute kidney injury) (2) Non-STEMI (non-ST elevated myocardial infarction) Status: Acute (3) Pneumonia Status: Acute Qualifiers: Pneumonia type: due to unspecified organism Laterality: right Lung location: lower lobe of lung Qualified Codes: J18.1 - Lobar pneumonia, unspecified organism (4) Acute respiratory failure Status: Acute Qualifiers: Respiratory failure complication: hypoxia Qualified Codes: J96.01 - Acute respiratory failure with hypoxia Clinical Quality Measures DVT/VTE Risk/Contraindication: Risk Factor Score Per Nursin RFS Level Per Nursing on Admit: 4+=Very High DADA BEY MD Oct 03, 2019 08:50
[2019-10-03] MEDS: ENOXAPARIN 60 MG/0.6 ML (LOVENOX) SYR SC SCH (09:22)
--- NOTE | 2019-10-03 09:35 | Diagnostic Imaging Report ---
INDICATION: Congestive heart failure, respiratory failure COMPARISON: 10/02/2019 TECHNIQUE: Single radiograph of the chest dated 10/03/2019 FINDINGS: The cardiac silhouette is within normal limits in size. No significant pulmonary vascular congestion, appearing less prominent than the prior examination. Improved aeration of the lungs with improved bilateral interstitial opacities. Previously noted bibasilar pleural-parenchymal opacities have improved though not completely resolved. No pneumothorax. No acute osseous abnormality. IMPRESSION: Improving aeration of the lungs with improved interstitial edema and improved though mild persisting small bibasilar pleural-parenchymal opacities. Dictated by: Dictated on workstation # [id number]
[2019-10-03] MEDS ORDERED: HEParin (CATH LAB) 2,000 ML IV ONE (09:39)
[2019-10-03] MEDS ORDERED: LIDOCAINE 1% INJ 20 ML 20 ML VIAL ONE (09:39)
[2019-10-03] MEDS ORDERED: MIDAZOLAM 5 MG/5 ML (VERSED) VIAL ONE (09:40)
[2019-10-03] MEDS ORDERED: VERAPAMIL 5 MG/2 ML (CALAN) VIAL IV ONE (09:40)
[2019-10-03] MEDS ORDERED: NITRO DRIP 25000 MCG/D5W 0 ML IV ONE (09:40)
[2019-10-03] MEDS ORDERED: fentaNYL INJECTION 100 MCG/2 ML AMP ONE (09:40)
[2019-10-03] MEDS ORDERED: HEParin 1000 UNIT/ML (10ML VIAL) FOR BOLUS ONE (09:40)
--- NOTE | 2019-10-03 09:50 | NUR ---
pt left floor w/ slab lifting engineer staff/rt.
[2019-10-03] MEDS ORDERED: NS IV 1000 ML 1,000 ML ONE (09:58)
--- NOTE | 2019-10-03 10:39 | Physical Therapy Progress Note ---
Therapy Progress Note Order for PT joe received. Patient is out of her room having a heart cath. Will attempt evaluation tomorrow. Patient will be on at least 4 hours of bedrest after she gets back to her room. LUZ MARIA ZAMORA PT Oct 03, 2019 10:39
[2019-10-03] MEDS ORDERED: CLOPIDOGREL 300 MG (PLAVIX) TABLET PO ONE (10:54)
--- NOTE | 2019-10-03 11:23 | Cardiology Progress Note ---
Cardiology SOAP Progress Note Subjective: Still short of breath. Objective: I&O/Vital Signs 10/02/19 10/03/19 10/03/19 10/03/19 23:25 00:00 01:00 01:00 Pulse 97 103 103 Resp 20 20 B/P (MAP) 99/57 (71) 112/60 (77) Pulse Ox 99 99 95 O2 Delivery Vapotherm Vapotherm Vapotherm O2 Flow Rate 25.00 25.00 25.00 40.00 40.00 FiO2 40 10/03/19 10/03/19 10/03/19 10/03/19 02:00 03:00 03:25 03:34 Temp 37.3 Pulse 90 101 Resp 13 16 B/P (MAP) 104/69 (81) 103/64 (77) Pulse Ox 99 97 100 O2 Delivery Vapotherm Vapotherm Vapotherm Vapotherm O2 Flow Rate 25.00 25.00 25.00 25.00 40.00 40.00 40.00 FiO2 40 10/03/19 10/03/19 10/03/19 10/03/19 03:35 04:00 05:00 06:00 Pulse 98 93 94 Resp 22 20 B/P (MAP) 112/65 (81) 92/51 (65) 101/64 (76) Pulse Ox 100 100 96 99 O2 Delivery Vapotherm Vapotherm Vapotherm Vapotherm O2 Flow Rate 25.00 25.00 25.00 25.00 40.00 40.00 40.00 FiO2 40 10/03/19 10/03/19 10/03/19 10/03/19 07:00 07:00 07:16 07:32 Temp 37.5 Pulse 97 97 B/P (MAP) 99/64 (76) Pulse Ox 99 99 O2 Delivery Vapotherm Vapotherm O2 Flow Rate 15.00 25.00 40.00 FiO2 40 10/03/19 10/03/19 10/03/19 10/03/19 08:00 08:10 09:00 09:27 Pulse 97 91 Resp 14 11 B/P (MAP) 109/69 (82) 88/52 (64) Pulse Ox 99 99 100 O2 Delivery Vapotherm Vapotherm Vapotherm Vapotherm O2 Flow Rate 15.00 15.00 15.00 10.00 40.00 40.00 40.00 FiO2 40 10/03/19 00:00 Intake Total 1345 ml Output Total 1525 ml Balance -180 ml Weight (Pounds): 142 Weight (Calculated Kilograms): 64.600886 Constitutional: appears stated age, AAO x 3, apparent distress, well-developed, well-nourished Respiratory: accessory muscle use, respiratory distress, chest is bilaterally symmetric, crackles, other (decreased breath sounds bilaterally.) Cardiovascular: regular rate-rhythm, tachycardia, S1 and S2 Gastrointestional: soft, audible bowel sounds; No spleenomegaly Extremities: normal range of motion, non-tender, normal inspection, pedal edema; No clubbing, No cyanosis, No significant edema Neurologic/Psychiatric: no motor/sensory deficits, alert, normal mood/affect, oriented x 3, power is 5/5 both on sides Skin: normal color, warm/dry Results/Procedures: Labs Laboratory Tests 10/03/19 03:25: White Blood Count 5.9, Red Blood Count 3.52L, Hemoglobin 11.0L, Hematocrit 34L, Mean Corpuscular Volume 97, Mean Corpuscular Hemoglobin 31, Mean Corpuscular Hemoglobin Concent 32, Red Cell Distribution Width 13.5, Platelet Count 301, Mean Platelet Volume 10.3, Neutrophils (%) (Auto) 43, Lymphocytes (%) (Auto) 37, Monocytes (%) (Auto) 13H, Eosinophils (%) (Auto) 7, Basophils (%) (Auto) 1, Neutrophils # (Auto) 2.5, Lymphocytes # (Auto) 2.2, Monocytes # (Auto) 0.8, Eosinophils # (Auto) 0.4H, Basophils # (Auto) 0.0, Sodium Level 141, Potassium Level 3.8, Chloride Level 106, Carbon Dioxide Level 20L, Anion Gap 15H, Blood Urea Nitrogen 24H, Creatinine 1.66H, Estimat Glomerular Filtration Rate 29, BUN/Creatinine Ratio 14, Glucose Level 93, Calcium Level 8.6, Phosphorus Level 4.5, Magnesium Level 1.9 Microbiology 10/01/19 MRSA Screen - Final, Complete MRSA not isolated 10/01/19 Blood Culture - Preliminary, Resulted No growth 10/01/19 Urine Culture - Preliminary, Resulted Probable Klebsiella/Enterobact A/P: Assessment/Dx: Acute respiratory failure, Acute congestive heart failure, Non-STEMI, Hypertension Plan: Acute respiratory failure, likely multifactorial. Relatively stable respiratory status. On Vapotherm. Acute congestive heart failure, IV Lasix. Echocardiogram shows moderate LV systolic dysfunction with an EF of 35 percent. Fluid restriction. Non-STEMI, serial cardiac enzymes. I discussed at length with the patient and family. I recommended coronary angiography. The patient would not like cardiac surgery. Therefore if there is something that we can intervene on she would like to be intervened during coronary angiography. 1-2 percent risk of complication was discussed. She accepted the risks and gave informed consent. Coronary angiography today. Hypertension Thank you for your consultation. Please call me if you have any questions. Tosha Berg MD, FACP, FACC, FSCAI, FHRS, CCDS Interventional Cardiology Cardiac Electrophysiology Vascular Medicine and Endovascular Interventions Focused Exam Lactate Level 09/30/19 23:49: Lactic Acid Level 2.24*H 10/01/19 02:57: Lactic Acid Level 2.41*H 10/02/19 05:58: Lactic Acid Level 1.70 Time of Focused Exam: 02:38 Uday BERG MD Oct 03, 2019 11:23
--- NOTE | 2019-10-03 11:23 | Cardiac Procedure Note-CS/ASA ---
Pre-Procedure Note Pre-Op Procedure Note H&P Reviewed The H&P was reviewed, patient examined and no changes noted. Date H&P Reviewed: Oct 03, 2019 Time H&P Reviewed: 10:00 Conscious Sedation Pre-Proced Time 10:00 ASA Score 3 For ASA 3 and 4: Consider anesthesia and medical clearance. Also, for patients with a history of failed moderate sedation consider anesthesia. Airway Lungs Heart ASA score ASA 1: a normal healthy patient ASA 2: a patient with a mild systemic disease (mid diabetes, controlled hypertension, obesity ASA 3: a patient with a severe systemic disease that limits activity (angina, COPD, prior Myocardial infarction) ASA 4: a patient with an incapacitating disease that is a constant threat to life (CHF, renal failure) ASA 5: a moribund patient not expected to survive 24 hrs. (ruptured aneurysm) ASA 6: a declared brain- patient whose organs are being harvested. For emergent operations, add the letter E after the classification Mallampati Classification Grade 1 Sedation Plan Analgesia, Amnesia, Plan communicated to team members, Discussed options with patient/fam, Discussed risks with patient/fam The patient is an appropriate candidate to undergo the planned procedure, sedation, and anesthesia. The patient immediately re-assessed prior to indication. Uday PICKERING MD Oct 03, 2019 11:23
[2019-10-03] MEDS ORDERED: PATIENT MAY USE OWN MEDS, ALL PO SCH (11:30)
--- NOTE | 2019-10-03 11:30 | Coronary Angiography & PCI ---
Coronary Angiography & PCI DATE OF PROCEDURE: 10/03/19 INDICATION: Non-STEMI, congestive heart failure. PREOPERATIVE DIAGNOSIS: Non-STEMI, congestive heart failure. POSTOPERATIVE DIAGNOSIS: Severe three-vessel disease. Successful PCI with drug- eluting stent to the mid RCA. HISTORY: This is a 84-year-old lady who presented with significant shortness of breath. Acute respiratory failure likely due to acute systolic congestive heart failure. Echocardiogram showed an EF of 35 percent. Some improvement with IV Lasix. Patient is on Vapotherm. Positive cardiac enzymes. Coronary angiography was recommended. The patient is DO NOT RESUSCITATE, DO NOT INTUBATE and also refuses cardiac surgery. After discussion with the patient and the family, the plan is for coronary angiography and to see if anything can be intervened on percutaneously. Risk of 2 percent was discussed with the patient and family. Informed consent was taken. Therefore, the patient was scheduled for coronary angiography. PROCEDURES PERFORMED: 1.Coronary angiography. 2.Left heart catheterization. 3.PCI to the mid RCA with a drug-eluting stent. COMPLICATIONS: None. SPECIMENS: None. ESTIMATED BLOOD LOSS: 10 mL ANESTHESIA: Conscious sedation ANTICOAGULATION: IV heparin CONTRAST: 35 mL. FLUOROSCOPY: 6.9 minutes. FLOUROSCOPY DOSE: 503 mgy. PROCEDURE DETAILS: The patient is a 84 female and was brought to the cardiac cath tech after informed consent was taken. All the risks and complications were explained in detail; this included the risk of bleeding, vascular damage, stroke, MT and even . The patient was draped and prepped in the usual sterile fashion. Access was gained in the right femoral artery with a 5 [place] sheath. Coronary angiography and left heart catheterization was performed with a JR4 and JL4 catheter. FINDINGS: 1.Left main: Mild ostial and distal left main disease. Stenosis severity 20-30 percent. 2.LAD: Moderate diffuse disease in the proximal and midsegment. Severe diffuse disease in the distal segment. Small caliber artery. Artery diameter is below 1.5 mm. PCI is not recommended. 3.Left circumflex artery: Moderate severe disease in the OM 1 artery. Small caliber artery therefore PCI is not recommended. Nondominant left circumflex system. 4.RCA: Large dominant RCA with a large PL and PDA branch. Heavily calcified with mild diffuse disease. Severe calcified stenosis in the mid RCA. Stenosis severity 80-90 percent. 5.Left heart catheterization: LV gram not done. LV pressure 106/9 mmHg. LVEDP 24 mmHg. Aortic pressure 102/59 mmHg. No gradient across the aortic valve. RECOMMENDATIONS: PCI to the mid RCA is recommended. INTERVENTION DETAILS: Upgraded to a 6 [place] femoral sheath. JR4 guide catheter, BMW guidewire, IV heparin. 6000 units of IV heparin were given. 600 mg off Plavix bolus was given before the PCI. The lesion was crossed with the BMW wire. The tip of the wire was placed in the PL branch. Predilatation was done with an NC Quantum 3.0 x 15 mm noncompliant balloon for 18 [place] for 35 seconds. We then deployed a drug-eluting stent Xience Roshni 3.5 x 18 mm at 16 [place] for 31 seconds. Postdilatation with an NC Quantum 3.5 x 15 mm balloon at 18 [place] for 14 seconds and 18 [place] for 7 seconds. Excellent results with no significant residual stenosis. ROB-3 flow distally. Patient tolerated procedure well and did not have any complication. Minx closure of the femoral artery. CONCLUSIONS: 1. Severe diffuse disease and small caliber arteries in the LAD and left circumflex artery. PCI is not recommended. 2. Large dominant RCA with severe mid RCA calcified stenosis treated successfully with a drug-eluting stent. 3. Dual antiplatelet therapy for at least 1 year. 4. LVEDP is 24 mmHg which suggest congestive heart failure. Patient will further require Lasix therapy. Tosha Berg MD, FACP, FACC, [facility] Interventional Cardiology Uday BERG MD Oct 03, 2019 11:30
--- NOTE | 2019-10-03 11:45 | NUR ---
PT BACK TO FLOOR W/ PLACEMENT SECRETARY STAFF/FAMILY.
--- NOTE | 2019-10-03 12:04 | Occ Therapy Progress Note ---
Therapy Progress Note OT order received, chart reviewed. Pt. having heart cath this a.m. and will be on bedrest after. Will complete eval in a.m. when off bedrest and medically stable. 1200 ZENOBIA AMEZCUA OT Oct 03, 2019 12:04
--- NOTE | 2019-10-03 15:07 | NUR ---
CM/SS: Visited with family per their request to see Director Digital Sales to discuss discharge Plan: To be determined with possible skilled stay or possible home care Summary: Son and daughter in law requested to discuss options for pt at the time of discharge. Pt has lived at home alone prior to her stay here. Skilled stay at a facility discussed, as well as home care level of care discussed. Family verbalize understanding. Explain to family that it is too early to make the decision as to the plan for pt. Family aware and know that this worker will follow up with them, once discharge plan is determined.
[2019-10-04] VITALS (13 sets, daily range): BP systolic 97–114; BP diastolic 55–73
[2019-10-04] MEDS: cefTRIAXone FOR IV USE 1,000 MG in WATER (STERILE) FOR INJECTION 10 ML IV SCH (00:53)
[2019-10-04] MEDS: RT-ALBUTEROL/IPRATROPIUM 3 ML (DUONEB) VIAL INH SCH ×4 (02:32→23:19)
[2019-10-04 03:34] LABS: BASOPHILS % (AUTO) 1 % (0-10); EOSINOPHILS # (AUTO) 0.4 10^3/uL (0.0-0.3); EOSINOPHILS % (AUTO) 6 % (0-10); HEMATOCRIT 34 % (35-52); HEMOGLOBIN 10.5 G/DL (11.5-16.0); LYMPHOCYTES # (AUTO) 1.9 X 10^3 (1.0-4.0); LYMPHOCYTES % (AUTO) 32 % (12-44); MEAN CORPUSCULAR HEMOGLOBIN 30 PG (25-34); MEAN CORPUSCULAR HGB CONC 31 G/DL (32-36); MEAN CORPUSCULAR VOLUME 98 FL (80-99); MEAN PLATELET VOLUME 10.2 FL (7.4-10.4); MONOCYTES # (AUTO) 0.8 X 10^3 (0.0-1.0); MONOCYTES % (AUTO) 13 % (0-12); NEUTROPHILS % (AUTO) 49 % (42-75); PLATELET COUNT 289 10^3/uL (130-400); RED CELL DISTRIBUTION WIDTH 13.4 % (10.0-14.5)
[2019-10-04 03:54] LABS: CALCIUM 8.5 MG/DL (8.5-10.1); CREATININE SERUM 1.33 MG/DL (0.60-1.30); MAGNESIUM 2.2 MG/DL (1.6-2.4); PHOSPHORUS 4.6 MG/DL (2.3-4.7); POTASSIUM 3.7 MMOL/L (3.6-5.0)
--- NOTE | 2019-10-04 05:23 | Pulmonary Progress Note ---
Subjective Date Seen by a Provider: Oct 04, 2019 Time Seen by a Provider: 05:18 Subjective/Events-last exam Pt is doing better s/p cath Sepsis Event Evaluation Height, Weight, BMI Height: 5'3.00" Weight: 142lbs. oz. 64.736180fi; 23.00 BMI Method:Stated Focused Exam Lactate Level 10/02/19 05:58: Lactic Acid Level 1.70 Time of Focused Exam: 02:38 Exam Exam Vital Signs Date Time Temp Pulse Resp B/P (MAP) Pulse Ox O2 Delivery O2 Flow Rate FiO2 10/04/19 04:00 96 Vapotherm 10.00 25 10/04/19 04:00 93 17 112/64 (80) Vapotherm 10.00 35.00 10/04/19 03:00 98 16 99/55 (70) Vapotherm 10.00 35.00 10/04/19 02:32 94 Vapotherm 10.00 30 10/04/19 02:00 98 17 101/61 (74) Vapotherm 10.00 35.00 10/04/19 01:00 100 17 103/66 (78) 100 Vapotherm 10.00 35.00 10/04/19 01:00 100 10/04/19 00:00 98 13 97/57 (70) 99 Vapotherm 10.00 35.00 10/04/19 00:00 96 Vapotherm 10.00 30 10/03/19 23:00 100 20 103/61 (75) 92 Vapotherm 10.00 35.00 10/03/19 22:00 97 19 105/60 (75) 97 Vapotherm 10.00 35.00 10/03/19 21:00 104 16 94/58 (70) 93 Vapotherm 10.00 35.00 10/03/19 20:03 95 Vapotherm 10.00 35 10/03/19 19:57 93 Vapotherm 10.00 35 10/03/19 19:43 37.7 108 18 119/81 (94) 94 Vapotherm 10.00 35.00 10/03/19 19:25 37.2 10/03/19 19:00 107 18 119/81 (94) 97 Vapotherm 10.00 35.00 10/03/19 19:00 110 10/03/19 18:00 101 14 104/66 (79) 91 Vapotherm 10.00 35.00 10/03/19 17:00 112 15 113/71 (85) 97 Vapotherm 15.00 35.00 10/03/19 16:00 108 20 115/59 (77) 100 Vapotherm 15.00 35.00 10/03/19 15:41 37.1 10/03/19 15:38 99 Vapotherm 15.00 35 10/03/19 15:14 95 Vapotherm 15.00 35 10/03/19 15:00 95 14 102/69 (80) 100 Vapotherm 15.00 35.00 10/03/19 14:00 97 15 102/66 (78) 98 Vapotherm 15.00 35.00 10/03/19 13:22 98 Vapotherm 15.00 35 10/03/19 13:00 105 7 117/78 (91) 98 Vapotherm 15.00 35.00 10/03/19 12:49 101 10/03/19 12:29 99 Vapotherm 15.00 35 10/03/19 12:12 37.2 10/03/19 12:00 98 10 118/76 (90) 98 Vapotherm 15.00 35.00 10/03/19 09:27 Vapotherm 10.00 40.00 10/03/19 09:00 91 11 88/52 (64) 100 Vapotherm 15.00 40.00 10/03/19 08:10 99 Vapotherm 15.00 40 10/03/19 08:00 97 14 109/69 (82) 99 Vapotherm 15.00 40.00 10/03/19 07:32 37.5 10/03/19 07:16 99 Vapotherm 25.00 40 10/03/19 07:00 97 99/64 (76) 99 Vapotherm 15.00 40.00 10/03/19 07:00 97 10/03/19 06:00 94 101/64 (76) 99 Vapotherm 25.00 40.00 I & O 10/04/19 07:00 Intake Total 300 ml Output Total 550 ml Balance -250 ml Height & Weight Height: 5'3.00" Weight: 142lbs. oz. 64.793278xv; 23.00 BMI Method:Stated General Appearance: No Apparent Distress, WD/WN HEENT: PERRL/EOMI, Moist Mucous Membranes Neck: Normal Inspection, Supple Respiratory: Lungs Clear, No Respiratory Distress Cardiovascular: Regular Rate, Rhythm, No Murmur Capillary Refill: Less Than 3 Seconds Peripheral Pulses: 2+ Radial Pulses (R), 2+ Radial Pulses (L) Gastrointestinal: normal bowel sounds, non tender, soft Extremity: Normal Capillary Refill, No Calf Tenderness, No Pedal Edema Neurologic/Psychiatric: Alert, Oriented x3 Skin: Normal Color, Warm/Dry Lymphatic: No Adenopathy Results Lab Laboratory Tests 10/03/19 03:25 10/04/19 03:00 Assessment/Plan Assessment/Plan Acute respiratory failure with hypoxia -PT is currently on Vapotherm -Change to regular NC -SOB improved Bilateral pleural effusions - echocardiogram 25-30% -? life vest. Acute CHF -cardiology following Metabolic lactic acidosis probably secondary to hypoxia -- Doubt sepsis -Monitor Atelectasis doubt PNA -No fever, no leukocytosis -No productive cough Acute renal failure - NSTEMI -Cardiology following -s/p MOOK Genao DO Oct 04, 2019 05:23
[2019-10-04] MEDS: ASPIRIN E.C. 81 MG (ECOTRIN) TAB PO SCH ×2 (07:27→08:36)
[2019-10-04] MEDS: CLOPIDOGREL 75 MG (PLAVIX) TABLET PO SCH (08:36)
[2019-10-04] MEDS: ENOXAPARIN 60 MG/0.6 ML (LOVENOX) SYR SC SCH (08:36)
--- NOTE | 2019-10-04 08:49 | Diagnostic Imaging Report ---
Portable erect AP chest at 334h. INDICATION: Respiratory distress The heart size is within normal limits and stable when compared to 10/03/2019. The alveolar/interstitial infiltrate in the right lung base seen previously is again evident and not significantly changed. There may be some atelectasis/infiltrate in the left retrocardiac region although the left retrocardiac region is not well penetrated. The upper lungs are clear. The mediastinum is not widened. The osseous structures are intact. IMPRESSION: Stable chest. There is been no adverse change since the prior exam. Dictated by: Dictated on workstation # [id number]
--- NOTE | 2019-10-04 10:24 | Cardiology Progress Note ---
Cardiology SOAP Progress Note Subjective: Improved shortness of breath. Objective: I&O/Vital Signs 10/03/19 10/04/19 10/04/19 10/04/19 23:00 00:00 00:00 01:00 Pulse 100 98 100 Resp 20 13 B/P (MAP) 103/61 (75) 97/57 (70) Pulse Ox 92 96 99 O2 Delivery Vapotherm Vapotherm Vapotherm O2 Flow Rate 10.00 10.00 10.00 35.00 35.00 FiO2 30 10/04/19 10/04/19 10/04/19 10/04/19 01:00 02:00 02:32 03:00 Pulse 100 98 98 Resp 17 17 16 B/P (MAP) 103/66 (78) 101/61 (74) 99/55 (70) Pulse Ox 100 94 O2 Delivery Vapotherm Vapotherm Vapotherm Vapotherm O2 Flow Rate 10.00 10.00 10.00 10.00 35.00 35.00 35.00 FiO2 30 10/04/19 10/04/19 10/04/19 10/04/19 04:00 04:00 05:00 06:00 Pulse 93 103 98 Resp 17 24 19 B/P (MAP) 112/64 (80) 108/63 (78) 107/68 (81) Pulse Ox 96 O2 Delivery Vapotherm Vapotherm Vapotherm Vapotherm O2 Flow Rate 10.00 10.00 10.00 10.00 35.00 35.00 35.00 FiO2 25 10/04/19 10/04/19 10/04/19 10/04/19 07:00 08:00 08:00 08:42 Pulse 96 98 Resp 17 B/P (MAP) 114/73 (87) Pulse Ox 97 99 O2 Delivery Vapotherm High Flow N/C Nasal Cannula O2 Flow Rate 10.00 10.09 4.00 35.00 10/03/19 23:59 Intake Total 250 ml Output Total 450 ml Balance -200 ml Weight (Pounds): 142 Weight (Calculated Kilograms): 64.292202 Constitutional: appears stated age, AAO x 3, well-developed, well-nourished Respiratory: chest is bilaterally symmetric, crackles, other (decreased breath sounds bilaterally.) Cardiovascular: regular rate-rhythm, S1 and S2 Gastrointestional: soft, audible bowel sounds; No spleenomegaly Extremities: normal range of motion, non-tender, normal inspection, pedal edema; No clubbing, No cyanosis, No significant edema Neurologic/Psychiatric: no motor/sensory deficits, alert, normal mood/affect, oriented x 3, power is 5/5 both on sides Skin: normal color, warm/dry Results/Procedures: Labs Laboratory Tests 10/04/19 03:00: White Blood Count 6.0, Red Blood Count 3.45L, Hemoglobin 10.5L, Hematocrit 34L, Mean Corpuscular Volume 98, Mean Corpuscular Hemoglobin 30, Mean Corpuscular Hemoglobin Concent 31L, Red Cell Distribution Width 13.4, Platelet Count 289, Me an Platelet Volume 10.2, Neutrophils (%) (Auto) 49, Lymphocytes (%) (Auto) 32, Monocytes (%) (Auto) 13H, Eosinophils (%) (Auto) 6, Basophils (%) (Auto) 1, Neutrophils # (Auto) 3.0, Lymphocytes # (Auto) 1.9, Monocytes # (Auto) 0.8, Eosinophils # (Auto) 0.4H, Basophils # (Auto) 0.0, Sodium Level 141, Potassium Level 3.7, Chloride Level 108H, Carbon Dioxide Level 22, Anion Gap 11, Blood Urea Nitrogen 24H, Creatinine 1.33H, Estimat Glomerular Filtration Rate 38, BUN/Creatinine Ratio 18, Glucose Level 95, Calcium Level 8.5, Phosphorus Level 4.6, Magnesium Level 2.2 Microbiology 10/03/19 Gram Stain, Resulted Pending 10/03/19 Sputum Culture - Preliminary, Resulted Staphylococcus species 10/01/19 Blood Culture - Preliminary, Resulted No growth 10/01/19 Urine Culture - Final, Complete Klebsiella pneumoniae Klebsiella pneumoniae#2 A/P: Assessment/Dx: Acute respiratory failure, Acute congestive heart failure, Non-STEMI, Hypertension Plan: Acute respiratory failure, likely multifactorial. Relatively stable respiratory status. Improved shortness of breath. Off Vapotherm. Acute congestive heart failure, IV Lasix. Echocardiogram shows moderate LV systolic dysfunction with an EF of 35 percent. Fluid restriction. Patient is DO NOT RESUSCITATE/DO NOT INTUBATE. Defibrillator/lifevest is not recommended. Non-STEMI, serial cardiac enzymes. I discussed at length with the patient and family. I recommended coronary angiography. The patient would not like cardiac surgery. Therefore if there is something that we can intervene on she would like to be intervened during coronary angiography. 1-2 percent risk of complication was discussed. She accepted the risks and gave informed consent. Coronary angiography 10/03/2019 shows severe mid RCA stenosis in a dominant RCA which was treated with a drug-eluting stent. Severe diffuse disease in the LAD and left circumflex artery however both are very small caliber arteries th erefore PCI is not recommended. Long-term dual antiplatelet therapy. Discussed at length with the patient. Hypertension Dr. Vogt to take over cardiology care from this afternoon Thank you for your consultation. Please call me if you have any questions. Tosha Berg MD, FACP, FACC, FSCAI, FHRS, CCDS Interventional Cardiology Cardiac Electrophysiology Vascular Medicine and Endovascular Interventions Focused Exam Lactate Level 10/02/19 05:58: Lactic Acid Level 1.70 Time of Focused Exam: 02:38 Uday BERG MD Oct 04, 2019 10:24
--- NOTE | 2019-10-04 11:07 | Physical Therapy Evaluation ---
PT Evaluation-General Medical Diagnosis Admission Date Oct 01, 2019 at 02:40 Medical Diagnosis: NSTEMI, CHF, Acute excerbation, acute repiratory Onset Date: Oct 01, 2019 Therapy Diagnosis Therapy Diagnosis: Muscle deconditioning Height/Weight Height (Feet): 5 Height (Inches): 3.00 Weight (Pounds): 142 Precautions Precautions/Isolations: Fall Prevention, Standard Precautions Weight Bear Status Right Lower Extremity: Right Weight Bearing/Tolerated Left Lower Extremity: Left Weight Bearing/Tolerated Referral Physician: Amor Reason for Referral: Evaluation/Treatment Medical History Pertinent Medical History: HTN Additional Medical History Patient received heart cath 10/03. Current History Patient presented to ER via EMS with SOB on 10/01 Reviewed History: Yes Social History Home: Single Level Current Living Status: Alone Entry Into Home: Stairs With Railing PT Steps Into Home: 4 PT Steps Inside Home: 0 Prior Prior Level of Function SCALE: Activities may be completed with or without assistive devices. 5-Pcxjwzvhkm-wsalewu completes the activity by him/herself with no assistance from a helper. 5-Set-up or Clean-up Assistance-helper sets up or cleans up; patient completes activity. [place] assists only prior to or following the activity. 4-Supervision or Touching Assistance-helper provides verbal cues and/or touching/steadying and/or contact guard assistance as patient completes activity. Assistance may be provided throughout the activity or intermittently. 3-Partial/Moderate Assistance-helper does LESS THAN HALF the effort. [place] lif ts, holds or supports trunk or limbs, but provides less than half the effort. 2-Substantial/Maximal Assistance-helper does MORE THAN HALF the effort. [place] lifts or holds trunk or limbs and provides more than half the effort. 2-Ykqwozdif-sypwhk does ALL the effort. Patient does none of the effort to complete the activity. Or, the assistance of 2 or more helpers is required for the patient to complete the activity. If activity was not attempted, code reason: 7-Patient Refused. 9-Not Applicable-not attempted and the patient did not perform the activity before the current illness, exacerbation or injury. 10-Not Attempted due to Environmental Limitations-(lack of equipment, weather restraints, etc.). 88-Not Attempted due to Medical Conditions or Safety Concerns. Bed Mobility: 6 Transfers (B,C,W/C): 6 Gait: 6 Stairs: 6 Indoor Mobility (Ambulation): Independent Stairs: Independent Prior Devices Use: None Patient states she would occasionally use the wall for balance when ambulating. PT Evaluation-Current Subjective Patient agreeable to therapy at this time. Patient son present and gathers her things as she is transferring out of ICU. Objective Patient Orientation: Normal For Age Attachments: Oxygen (4L), [place] Catheter ROM/Strength ROM Lower Extremities WFL BLE Strength Lower Extremities 4+/5 BLE Integumentary/Posture Integumentary See nursing notes. Bowel Incontinence: No Bladder Incontinence: [place] Cath Posture WFL Neuromuscular (Tone, Coordination, Reflexes) grossly intact Sensory Vision: Functional Hearing: Functional Sensation Right Lower Extremit: Intact Sensation Left Lower Extremity: Intact Transfers Roll Left to Right (QC): 6 Sit to Lying (QC): 6 Lying to Sitting/Side of Bed(Q: 6 Sit to Stand (QC): 4 Chair/Glt-gy-Skkel Xfer(QC): 4 Gait Mode of Locomotion: Walk Anticipated Mode of Locomotion: Walk Walk 10 feet (QC): 4 Walk 50 ft with 2 Turns(QC): 4 Walk 150 ft (QC): 4 Distance: 300' Gait Assistive Device: FWW Comments/Gait Description CGA for safety. Patient used FWW at this time for added support. Wheelchair Training Does the Pt Use a Wheelchair?: No Balance Sitting Static: Good Sitting Dynamic: Good Standing Static: Good Standing Dynamic: Good Assessment/Needs During ambulation patient stable with one corrected LOB initially. After initial LOB patient was stable with no further problems. Patient would benefit from skilled therapy to aide in reaching maximum LOF as patient goes home. Rehab Potential: Good PT [facility] Goals Fiberglass Pipe Covering Supervisor Goals PT Fiberglass Pipe Covering Supervisor Goals Time Frame: Oct 11, 2019 Roll Left & Right (QC): 6 Sit to Lying (QC): 6 Lying-Sitting on Side/Bed(QC): 6 Sit to Stand (QC): 6 Chair/Ksi-ks-Szugb Xfer(QC): 6 Toilet Transfer (QC): 6 Does the Patient Walk: Yes Walk 10 feet (QC): 6 Walk 50ft with 2 Turns (QC): 6 Walk 150 ft (QC): 6 1 Step (curb) (QC): 6 4 Steps (QC): 6 PT Plan Problem List Problem List: Activity Tolerance, Safety, Balance, Gait, Transfer Treatment/Plan Treatment Plan: Continue Plan of Care Treatment Plan: Education, Functional Activity [place], Functional Strength, Gait, Safety, Therapeutic Exercise, Transfers Treatment Duration: Oct 11, 2019 Frequency: 6 times per week Estimated Hrs Per Day: .25 hour per day Patient and/or Family Agrees t: Yes Safety Risks/Education Patient Education: Gait Training, Transfer Techniques Teaching Recipient: Patient Teaching Methods: Discussion Response to Teaching: Reinforcement Needed Discharge Recommendations Therapy Discharge Recommendati: Home & Family Time/GCodes Time In: 950 Time Out: 1005 Total Billed Treatment Time: 15 Total Billed Treatment 1 visit EVL 15 DAREN MCLEOD PT Oct 04, 2019 11:07
--- NOTE | 2019-10-04 11:28 | Occupational Therapy Eval ---
OT Evaluation-General/PLF Medical Diagnosis Admission Date Oct 01, 2019 at 02:40 Medical Diagnosis: NSTEMI, CHF, Acute excerbation, acute repiratory Onset Date: Oct 01, 2019 Therapy Diagnosis Therapy Diagnosis: impaired ADLs/functional mobility Height/Weight Height (Feet): 5 Height (Inches): 3.00 Weight (Pounds): 142 Precautions Precautions/Isolations: Fall Prevention, Standard Precautions Safety Interventions: None Referral Physician: Amor Referral Reason: Activity Tolerance, Self Care, Evaluation/Treatment, Strengthening/ROM Medical History Pertinent Medical History: HTN Additional Medical History CHF, ARF, hysterectomy Current History Pt's symptoms began on 09/28/2019 and gradually progressed. She called EMS due to SOB and taken to ER, admitted 10/01/2019. Pt was in ICU, transferring to 4th floor on 10/04/2019. Reviewed History: Yes Social History Home: Multilevel (pt only uses 1st level) Current Living Status: Alone Entry Into Home: Stairs With Railing Steps Into Home: 5 Steps Inside Home: 0 ADL-Prior Level of Function SCALE: Activities may be completed with or without assistive devices. 4-Zajgrgrgcr-grotnco completes the activity by him/herself with no assistance from a helper. 5-Set-up or Clean-up Assistance-helper sets up or cleans up; patient completes activity. [place] assists only prior to or following the activity. 4-Supervision or Touching Assistance-helper provides verbal cues and/or touching/steadying and/or contact guard assistance as patient completes activity. Assistance may be provided throughout the activity or intermittently. 3-Partial/Moderate Assistance-helper does LESS THAN HALF the effort. [place] lifts, holds or supports trunk or limbs, but provides less than half the effort. 2-Substantial/Maximal Assistance-helper does MORE THAN HALF the effort. [place] lifts or holds trunk or limbs and provides more than half the effort. 4-Gshnbgmwt-xnyywg does ALL the effort. Patient does none of the effort to complete the activity. Or, the assistance of 2 or more helpers is required for the patient to complete the activity. If activity was not attempted, code reason: 7-Patient Refused. 9-Not Applicable-not attempted and the patient did not perform the activity before the current illness, exacerbation or injury. 10-Not Attempted due to Environmental Limitations-(lack of equipment, weather restraints, etc.). 88-Not Attempted due to Medical Conditions or Safety Concerns. ADL PLOF Comments Pt states she lives at home alone in a multi story house, but she only uses the first story. She reports being independent with all ADLs prior to hospitaliza tion, without AD/AE. She has a tub shower with a shower chair. Self Care: Independent Functional Cognition: Independent DME/Equipment: Bath Chair, Tub/Shower OT Current Status Subjective Pt seated upright in recliner at start of session with family member present, agreed to OT evaluation on this date. She did not report any pain. Mental Status/Objective Patient Orientation: Person, Place, Time, Situation, Normal For Age Attachments: Oxygen Current Glasses/Contacts: Yes Hearing Aids: No Dentures/Partials: Yes Hand Dominance: Right Upper Extremity ROM WFL Upper Extremity Coordination WFL Upper Extremity Sensation pt denies tingling/numbness BUEs Upper Extremity Strength grossly 3+/5 MMT Other Treatments Pt seated upright in recliner, with x1 family member present. She provides info rmation about PLOF and home set up at this time. OT educated pt on purpose and benefits of OT tx. Pt and family member agreed to POC. She pleasantly declines ADLs at this time, stating she had just transferred to 4th floor from the ICU and she would like to rest. OT oriented pt to call light and instructed her to call if she needs anything. Post OT session, pt seated upright in recliner with call light in reach and all needs met, family member present. Education OT Patient Education: Correct positioning, Energy conservation, Modified ADL techniques, Progress toward Goal/Update tx plan, Purpose of tx/functional activities Teaching Recipient: Patient Teaching Methods: Discussion Response to Teaching: Verbalize Understanding OT Custodial Goals Secondary Social Studies Teacher Goals Time Frame: Oct 11, 2019 Eating (QC): 6 Oral Hygiene (QC): 6 Toileting Hygiene (QC): 6 Shower/Bathe Self (QC): 6 Upper Body Dressing (QC): 6 Lower Body Dressing (QC): 6 On/Off Footwear (QC): 6 Additional Goals: 1-Demonstrate ADL Tasks, 2-Verbalize Understanding, 3- ImproveStrength/[place] 1=Demonstrate adherence to instructed precautions during ADL tasks. 2=Patient will verbalize/demonstrate understanding of assistive devices/modifications for ADL. 3=Patient will improve strength/tolerance for activity to enable patient to perform ADL's. OT Education/Plan Problem List/Assessment Assessment: Decreased Activ Tolerance, Decreased UE Strength, Impaired I ADL's, Impaired Self-Care Skills Pt would benefit from skilled OT services at this time in order to increase independence and safety with ADLs in order to return home safely Discharge Recommendations Plan/Recommendations: Continue POC Treatment Plan/Plan of Care Treatment,Training & Education: Yes Patient would benefit from OT for education, treatment and training to promote independence in ADL's, mobility, safety and/or upper extremity function for ADL's. Plan of Care: ADL Retraining, Functional Mobility, UE Funct Exercise/Act Treatment Duration: Oct 11, 2019 Frequency: 5 times per week Estimated Hrs Per Day: .25 hour per day Rehab Potential: Good Time/GCodes Start Time: 10:52 Stop Time: 11:00 Total Time Billed (hr/min): 8 Billed Treatment Time 1, GARCIA MARTINEZ OT Oct 04, 2019 11:28
--- NOTE | 2019-10-04 11:39 | Progress Note - Hospitalist ---
Subjective HPI/CC On Admission Date Seen by Provider: Oct 04, 2019 Time Seen by Provider: 10:00 Is an 84-year-old female the past medical history of hypertension who presented to the emergency department with shortness of breath. She states that her symptoms started on September 28 and have gradually progressed. She states she was lying down in bed last night and woke up short of breath. She was able to walk to the living room but remained very short of breath so called EMS via her life. Per notes EMS could hear crackles from across the room. She was given a breathing treatment without improvement and was placed on BiPAP in the emergency room. This helped improved her symptoms and she was also given Lasix. This morning she is off BiPAP and says she feels much better. His found to have an elevated troponin and elevated BNP but reports no history of heart disease or heart failure. Subjective/Events-last exam Pt reports feeling good this morning. Breathing much improved. Discussed results of cath and she again agrees she would not want a CABG. Focused Exam Lactate Level 10/02/19 05:58: Lactic Acid Level 1.70 Time of Focused Exam: 02:38 Objective Exam Vital Signs Vital Signs Date Time Temp Pulse Resp B/P (MAP) Pulse Ox O2 Delivery O2 Flow Rate FiO2 10/04/19 10:23 37.7 99 96 36 10/04/19 08:42 Nasal Cannula 4.00 10/04/19 08:00 17 114/73 (87) Capillary Refill : Less Than 3 Seconds General Appearance: No Apparent Distress, WD/WN Respiratory: Lungs Clear, No Respiratory Distress Cardiovascular: Regular Rate, Rhythm, No Murmur Neurologic/Psychiatric: Alert, Oriented x3, Normal Mood/Affect Results/Procedures Lab Laboratory Tests 10/04/19 03:00 Patient resulted labs reviewed. Imaging: Reviewed Imaging Report Assessment/Plan Assessment and Plan Assess & Plan/Chief Complaint Acute Respiratory Failure- doubt PNA, not sepsis NSTEMI CAD s/p PCI CHF Bilateral pleural effusions On nasal cannula now Cath revelaed diffuse CAD, stenting done Continue ASA/Plavix Continue Lasix Cardiology consulted, appreciate recs Pulm consulted, appreciate recs HTN Mildly hypotensive still hold home meds elevated d-dimer Lovenox negative CTA negative bilateral lower extremities Discharge planning: [facility] consulted. may need skilled placement. Diagnosis/Problems Diagnosis/Problems (1) OSIEL (acute kidney injury) (2) Non-STEMI (non-ST elevated myocardial infarction) Status: Acute (3) Pneumonia Status: Acute Qualifiers: Pneumonia type: due to unspecified organism Laterality: right Lung location: lower lobe of lung Qualified Codes: J18.1 - Lobar pneumonia, unspecified organism (4) Acute respiratory failure Status: Acute Qualifiers: Respiratory failure complication: hypoxia Qualified Codes: J96.01 - Acute respiratory failure with hypoxia Clinical Quality Measures DVT/VTE Risk/Contraindication: Risk Factor Score Per Nursin RFS Level Per Nursing on Admit: 4+=Very High DADA BEY MD Oct 04, 2019 11:39
--- NOTE | 2019-10-04 12:17 | NUR ---
Inpatient rehab evaluation Received order to evaluate patient for admission to the inpatient rehab unit. Currently, the rehab unit is capped at 8 patients due to nurse staffing. The first available bed will be on 10/07/2019. This patient appears to be an appropriate candidate for inpatient rehab as she was living at home alone and independent with functional mobility and ADLs prior to admission; however, per drug abuse social worker's notes, it appears patient and family are also interested in skilled placement. Will continue to follow the progress of this patient as there will be no bed available on the rehab unit until Monday. Thank you for the referral.
--- NOTE | 2019-10-04 14:34 | NUR ---
RD ASSESSMENT PMHx: HTN PT INTERACTION: Pt was awake and pleasant during nutrition assessment. Pt states current appetite is "better today." Note avg PO intake of 64% x3d, per chart review. Pt states following a regular diet at home and has some difficulty chewing, attributing it to her dentures. Pt states no issues with n/v at this time. Pt states some issues with constipation and that her last BM was 09/30. Note pt not currently on bowel regimen per chart review. Pt states no recent wt changes. Note unable to determine recent wt hx, per chart review. ABNORMAL NUTRITION-RELATED LAB VALUES LOW: HIGH: Cl 108; BUN 29; cr 1.33 Est. kcal needs: 5068-5835 kcal | 25-30 kcal/kg Est. Pro needs: 58-69 g Pro | 1.0-1.2 g Pro/kg PES STATEMENT: Inadequate oral intake (NI-2.1) related to loss of appetite | constipation as evidenced by pt interview | avg PO intake 64% x3d INTERVENTION: Continue with current diet order of Heart Healthy diet. Add Ensure Enlive (vary) to meals BID, for increased kcal intake. Provides 350 kcal and 13 g Pro per serving. Will continue to follow and reassess as pt needs and status change. MONITOR/EVALUATE: PO Intake; Plan of Care; Hydration Status; Weight Status; Lab Values Zeb Etienne, MS, RD, LD
--- NOTE | 2019-10-04 16:29 | NUR ---
Spoke with Dr. Chinchilla concerning pt's urine output for the 1400 I/O. Dr. Chinchilla stated that we can give pt time to try to drink more fluids and she would re-evaluate in the morning.
[2019-10-05] MEDS ORDERED: cefTRIAXone 1,000 MG IV (ROCEPHIN) VIAL ONE (00:16)
[2019-10-05] MEDS ORDERED: WATER (STERILE) FOR INJECTION 10 ML ONE (00:17)
[2019-10-05] MEDS: cefTRIAXone FOR IV USE 1,000 MG in WATER (STERILE) FOR INJECTION 10 ML IV SCH (00:26)
[2019-10-05] MEDS: RT-ALBUTEROL/IPRATROPIUM 3 ML (DUONEB) VIAL INH SCH ×4 (02:36→19:04)
[2019-10-05 04:00] VITALS: BP 98/54
[2019-10-05 05:54] LABS: BASOPHILS % (AUTO) 0 % (0-10); EOSINOPHILS # (AUTO) 0.5 10^3/uL (0.0-0.3); EOSINOPHILS % (AUTO) 9 % (0-10); HEMATOCRIT 32 % (35-52); HEMOGLOBIN 10.2 G/DL (11.5-16.0); LYMPHOCYTES # (AUTO) 1.6 X 10^3 (1.0-4.0); LYMPHOCYTES % (AUTO) 27 % (12-44); MEAN CORPUSCULAR HEMOGLOBIN 31 PG (25-34); MEAN CORPUSCULAR HGB CONC 32 G/DL (32-36); MEAN CORPUSCULAR VOLUME 98 FL (80-99); MEAN PLATELET VOLUME 10.3 FL (7.4-10.4); MONOCYTES # (AUTO) 0.7 X 10^3 (0.0-1.0); MONOCYTES % (AUTO) 12 % (0-12); NEUTROPHILS # (AUTO) 3.1 X 10^3 (1.8-7.8); NEUTROPHILS % (AUTO) 53 % (42-75); PLATELET COUNT 289 10^3/uL (130-400); RED CELL DISTRIBUTION WIDTH 13.1 % (10.0-14.5); WHITE BLOOD COUNT 5.9 10^3/uL (4.3-11.0)
[2019-10-05 06:19] LABS: CALCIUM 8.6 MG/DL (8.5-10.1); CREATININE SERUM 1.24 MG/DL (0.60-1.30); MAGNESIUM 2.1 MG/DL (1.6-2.4)
--- NOTE | 2019-10-05 07:00 | Pulmonary Progress Note ---
Subjective Time Seen by a Provider: 06:59 Subjective/Events-last exam Pt is doing much better. Sepsis Event Evaluation Height, Weight, BMI Height: 5'3.00" Weight: 142lbs. oz. 64.744821yr; 23.00 BMI Method:Stated Focused Exam Time of Focused Exam: 02:38 Exam Exam Vital Signs Date Time Temp Pulse Resp B/P (MAP) Pulse Ox O2 Delivery O2 Flow Rate FiO2 10/05/19 02:36 90 High Flow N/C 2.00 10/05/19 01:00 91 10/04/19 23:43 36.8 98 16 114/70 (85) 93 Room Air 10/04/19 23:01 80 High Flow N/C 10/04/19 21:00 99 High Flow N/C 10.09 10/04/19 20:00 37.1 102 18 110/59 (76) 96 Room Air 10/04/19 19:00 104 10/04/19 16:15 96 High Flow N/C 1.00 10/04/19 16:00 36.1 95 18 113/61 (78) 95 Room Air 10/04/19 14:35 97 High Flow N/C 3.50 10/04/19 13:00 97 10/04/19 12:00 37.0 95 18 107/61 (76) 100 High Flow N/C 3.50 10/04/19 10:23 37.7 99 96 36 10/04/19 08:42 Nasal Cannula 4.00 10/04/19 08:00 99 High Flow N/C 10.09 10/04/19 08:00 98 17 114/73 (87) 97 Vapotherm 10.00 35.00 10/04/19 07:00 96 I & O 10/05/19 07:00 Intake Total 1452 ml Output Total 750 ml Balance 702 ml Height & Weight Height: 5'3.00" Weight: 142lbs. oz. 64.762355ok; 23.00 BMI Method:Stated General Appearance: No Apparent Distress, WD/WN HEENT: PERRL/EOMI, Moist Mucous Membranes Neck: Normal Inspection, Supple Respiratory: Lungs Clear, No Respiratory Distress Cardiovascular: Regular Rate, Rhythm, No Murmur Capillary Refill: Less Than 3 Seconds Peripheral Pulses: 2+ Radial Pulses (R), 2+ Radial Pulses (L) Gastrointestinal: normal bowel sounds, non tender, soft Extremity: Normal Capillary Refill, No Calf Tenderness, No Pedal Edema Neurologic/Psychiatric: Alert, Oriented x3 Skin: Normal Color, Warm/Dry Lymphatic: No Adenopathy Results Lab Laboratory Tests 10/04/19 03:00 10/05/19 05:26 Assessment/Plan Assessment/Plan Acute respiratory failure with hypoxia -PT is currently on Vapotherm -Change to regular NC -SOB improved Bilateral pleural effusions - echocardiogram 25-30% -Cardiology following Acute CHF -cardiology following Metabolic lactic acidosis probably secondary to hypoxia -- Doubt sepsis -Monitor Atelectasis doubt PNA -No fever, no leukocytosis -No productive cough Acute renal failure - NSTEMI -Cardiology following -s/p MOOK Genao DO Oct 05, 2019 07:00
--- NOTE | 2019-10-05 07:53 | NUR ---
R groin site soft/non tender, dressing CDI, good distal pulses, will continue to monitor
[2019-10-05 08:00] VITALS: BP 114/64
[2019-10-05] MEDS: ASPIRIN E.C. 81 MG (ECOTRIN) TAB PO SCH ×2 (08:06→10:10)
[2019-10-05] MEDS: CLOPIDOGREL 75 MG (PLAVIX) TABLET PO SCH (08:07)
[2019-10-05] MEDS: ENOXAPARIN 60 MG/0.6 ML (LOVENOX) SYR SC SCH (08:07)
--- NOTE | 2019-10-05 10:23 | Cardiology Progress Note ---
Subjective Date Seen by Provider: Oct 05, 2019 Time Seen by Provider: 11:38 Subjective/Events-last exam Patient is laying down in bed. No new complaint Review of Systems General: Fatigue, Malaise Pulmonary: Dyspnea; No Cough, No Pleuritic Chest Pain, No Other Cardiovascular: No: Chest Pain, Palpitations, Orthopnea, Paroxysmal Noc. Dyspnea, Edema, Lt Headedness, Other Focused Exam Time of Focused Exam: 02:38 Objective-Cardiology Exam Last Set of Vital Signs Vital Signs 10/04/19 10/05/19 10:23 11:29 Temp 37.1 Pulse 104 Resp 16 B/P (MAP) 106/63 (77) Pulse Ox 98 O2 Delivery High Flow N/C O2 Flow Rate 2.00 FiO2 36 Capillary Refill : Less Than 3 SecondsLess Than 3 Seconds I&O Intake and Output 10/05/19 00:00 Intake Total 1502 ml Output Total 600 ml Balance 902 ml Intake Oral 1502 ml Output Urine Total 600 ml # Bowel Movements 1 General: Alert, Oriented X3, Cooperative HEENT: Atraumatic, PERRLA Neck: Supple, No JVD, No Thyromegaly Lungs: Clear to Auscultation, Normal Air Movement Heart: Regular Rate, Normal S1, Normal S2, No Murmurs Abdomen: Normal Bowel Sounds, Soft, No Tenderness, No Hepatosplenomegaly, No Masses Extremities: No Clubbing, No Cyanosis, No Edema, Normal Pulses, No Tenderness/Swelling Skin: No Rashes, No Breakdown, No Significant Lesion Neuro: Normal Gait, Normal Speech, Strength at 5/5 X4 Ext, Normal Tone, Sensation Intact Psych/Mental Status: Mental Status NL, Mood NL Results Lab Laboratory Tests 10/05/19 05:26 A/P-Cardiology Admission Diagnosis Coronary artery disease Congestive heart failure, acute on chronic left ventricular systolic dysfunction Hypertension Hyperlipidemia Assessment/Plan Coronary artery disease, non-ST elevation myocardial infarction, underwent cardiac catheterization and stenting to the midright coronary artery by Dr. Berg on October 03, 2019, patient has severe diffuse disease in the LAD and circumflex artery that were treated medically Congestive heart failure, acute on chronic left ventricular systolic dysfunction, ejection fraction 35 percent. Feeling better at this time Shortness of breath, status post acute respiratory failure, breathing is better today, still using oxygen, uses hydrochlorothiazide 12.5 mg and evaluate tolerance and response Borderline hypotension, cannot tolerate beta blockers, NENA inhibitor and/or ARB due to hypotension. Clinical Quality Measures DVT/VTE Risk/Contraindication: Risk Factor Score Per Nursin RFS Level Per Nursing on Admit: 4+=Very High TIFFANI CARTER MD Oct 05, 2019 10:23
[2019-10-05] MEDS: HYDROCHLOROTHIAZIDE 12.5 MG (HCTZ) CAP PO SCH (10:40)
[2019-10-05 11:29] VITALS: BP 106/63
--- NOTE | 2019-10-05 12:51 | Progress Note - Hospitalist ---
Subjective HPI/CC On Admission Date Seen by Provider: Oct 05, 2019 Time Seen by Provider: 12:48 Is an 84-year-old female the past medical history of hypertension who presented to the emergency department with shortness of breath. She states that her symptoms started on September 28 and have gradually progressed. She states she was lying down in bed last night and woke up short of breath. She was able to walk to the living room but remained very short of breath so called EMS via her life. Per notes EMS could hear crackles from across the room. She was given a breathing treatment without improvement and was placed on BiPAP in the emergency room. This helped improved her symptoms and she was also given Lasix. This morning she is off BiPAP and says she feels much better. His found to have an elevated troponin and elevated BNP but reports no history of heart disease or heart failure. Subjective/Events-last exam Pt reports feeling well. No complaints. Still on 2lpm. Focused Exam Time of Focused Exam: 02:38 Objective Exam Vital Signs Vital Signs Date Time Temp Pulse Resp B/P (MAP) Pulse Ox O2 Delivery O2 Flow Rate FiO2 10/05/19 11:29 37.1 104 16 106/63 (77) 98 High Flow N/C 2.00 10/04/19 10:23 36 Capillary Refill : Less Than 3 SecondsLess Than 3 Seconds General Appearance: No Apparent Distress, WD/WN Respiratory: Lungs Clear, No Respiratory Distress Cardiovascular: Regular Rate, Rhythm, No Murmur Gastrointestinal: Normal Bowel Sounds, Soft Neurologic/Psychiatric: Alert, Oriented x3 Results/Procedures Lab Laboratory Tests 10/05/19 05:26 Patient resulted labs reviewed. Imaging: Reviewed Imaging Report Assessment/Plan Assessment and Plan Assess & Plan/Chief Complaint Acute Respiratory Failure- doubt PNA, not sepsis NSTEMI CAD s/p PCI CHF Bilateral pleural effusions On nasal cannula now- continue to wean Cath revealed diffuse CAD, stenting done per cath note Continue ASA/Plavix Continue Lasix Cardiology consulted, appreciate recs Pulm consulted, appreciate recs HTN Mildly hypotensive still hold home meds elevated d-dimer Lovenox negative CTA negative bilateral lower extremities Discharge planning: Likely will be able to DC home tomorrow with home health if oxygen can be weaned further Diagnosis/Problems Diagnosis/Problems (1) OSIEL (acute kidney injury) (2) Non-STEMI (non-ST elevated myocardial infarction) Status: Acute (3) Pneumonia Status: Acute Qualifiers: Pneumonia type: due to unspecified organism Laterality: right Lung location: lower lobe of lung Qualified Codes: J18.1 - Lobar pneumonia, unspecified organism (4) Acute respiratory failure Status: Acute Qualifiers: Respiratory failure complication: hypoxia Qualified Codes: J96.01 - Acute respiratory failure with hypoxia Clinical Quality Measures DVT/VTE Risk/Contraindication: Risk Factor Score Per Nursin RFS Level Per Nursing on Admit: 4+=Very High DADA BEY MD Oct 05, 2019 12:51
[2019-10-05 16:46] VITALS: BP 118/68
[2019-10-05 19:40] VITALS: BP 116/74
[2019-10-06] VITALS: BP_SYST 10; BP_SYST 110; BP_DIAS 60
[2019-10-06] MEDS ORDERED: WATER (STERILE) FOR INJECTION 10 ML ONE (00:14)
[2019-10-06] MEDS ORDERED: cefTRIAXone 1,000 MG IV (ROCEPHIN) VIAL ONE (00:14)
[2019-10-06] MEDS: cefTRIAXone FOR IV USE 1,000 MG in WATER (STERILE) FOR INJECTION 10 ML IV SCH (00:26)
[2019-10-06] MEDS: RT-ALBUTEROL/IPRATROPIUM 3 ML (DUONEB) VIAL INH SCH ×2 (02:52→13:27)
[2019-10-06 03:58] VITALS: BP 108/63
[2019-10-06 05:18] LABS: BASOPHILS % (AUTO) 0 % (0-10); EOSINOPHILS # (AUTO) 0.5 10^3/uL (0.0-0.3); EOSINOPHILS % (AUTO) 8 % (0-10); HEMATOCRIT 32 % (35-52); HEMOGLOBIN 9.9 G/DL (11.5-16.0); LYMPHOCYTES # (AUTO) 1.3 X 10^3 (1.0-4.0); LYMPHOCYTES % (AUTO) 23 % (12-44); MEAN CORPUSCULAR HEMOGLOBIN 31 PG (25-34); MEAN CORPUSCULAR HGB CONC 31 G/DL (32-36); MEAN CORPUSCULAR VOLUME 98 FL (80-99); MEAN PLATELET VOLUME 9.9 FL (7.4-10.4); MONOCYTES # (AUTO) 0.8 X 10^3 (0.0-1.0); MONOCYTES % (AUTO) 14 % (0-12); NEUTROPHILS # (AUTO) 3.1 X 10^3 (1.8-7.8); NEUTROPHILS % (AUTO) 54 % (42-75); PLATELET COUNT 288 10^3/uL (130-400); RED CELL DISTRIBUTION WIDTH 13.1 % (10.0-14.5); WHITE BLOOD COUNT 5.7 10^3/uL (4.3-11.0)
[2019-10-06 05:33] LABS: CALCIUM 8.5 MG/DL (8.5-10.1); CREATININE SERUM 1.25 MG/DL (0.60-1.30); PHOSPHORUS 3.8 MG/DL (2.3-4.7); POTASSIUM 4.2 MMOL/L (3.6-5.0)
[2019-10-06 07:21] VITALS: BP 108/67
[2019-10-06] MEDS: HYDROCHLOROTHIAZIDE 12.5 MG (HCTZ) CAP PO SCH (08:35)
[2019-10-06] MEDS: ASPIRIN E.C. 81 MG (ECOTRIN) TAB PO SCH ×2 (08:35→09:00)
[2019-10-06] MEDS: CLOPIDOGREL 75 MG (PLAVIX) TABLET PO SCH (08:35)
[2019-10-06] MEDS: ENOXAPARIN 60 MG/0.6 ML (LOVENOX) SYR SC SCH (08:35)
--- NOTE | 2019-10-06 08:49 | NUR ---
PT WALKED FOR 6MINS SP02 DID NOT DROP BELOW 91%. DOES NOT QUALIFY FOR ATT. Addendum: 10/06/19 at 0850 by BRANDI MATA RT Amended: Links added.
--- NOTE | 2019-10-06 09:37 | Cardiology Progress Note ---
Subjective Date Seen by Provider: Oct 06, 2019 Time Seen by Provider: 09:36 Subjective/Events-last exam Patient is sitting in a chair, feeling better, asking to go home Review of Systems General: No Chills, No Night Sweats; Fatigue; No Malaise, No Appetite, No Other HEENT: No Head Aches, No Visual Changes, No Eye Pain, No Ear Pain, No Dysphasia, No Sinus Congestion, No Post Nasal Drip, No Sore Throat, No Other Pulmonary: No Dyspnea, No Cough, No Pleuritic Chest Pain, No Other Cardiovascular: No: Chest Pain, Palpitations, Orthopnea, Paroxysmal Noc. Dyspnea, Edema, Lt Headedness, Other Focused Exam Time of Focused Exam: 02:38 Objective-Cardiology Exam Last Set of Vital Signs Vital Signs 10/04/19 10/06/19 10/06/19 10:23 07:21 08:48 Temp 37.3 Pulse 91 Resp 20 B/P (MAP) 108/67 (81) Pulse Ox 99 O2 Delivery High Flow N/C O2 Flow Rate 1.00 FiO2 36 Capillary Refill : Less Than 3 SecondsLess Than 3 Seconds I&O Intake and Output 10/06/19 00:00 Intake Total 1280 ml Output Total 1000 ml Balance 280 ml Intake Oral 1280 ml Output Urine Total 1000 ml # Voids 2 # Bowel Movements 3 General: Alert, Oriented X3, Cooperative HEENT: Atraumatic, PERRLA Neck: Supple, No JVD, No Thyromegaly Lungs: Clear to Auscultation, Normal Air Movement Heart: Regular Rate, Normal S1, Normal S2, No Murmurs Abdomen: Normal Bowel Sounds, Soft, No Tenderness, No Hepatosplenomegaly, No Masses Extremities: No Clubbing, No Cyanosis, No Edema, Normal Pulses, No Tenderness/ Swelling Skin: No Rashes, No Breakdown, No Significant Lesion Neuro: Normal Gait, Normal Speech, Strength at 5/5 X4 Ext, Normal Tone, Sensation Intact Psych/Mental Status: Mental Status NL, Mood NL Results Lab Laboratory Tests 10/06/19 05:04 A/P-Cardiology Admission Diagnosis Coronary artery disease Congestive heart failure, acute on chronic left ventricular systolic dysfunction Hypertension Hyperlipidemia Assessment/Plan Coronary artery disease, non-ST elevation myocardial infarction, underwent cardiac catheterization and stenting to the midright coronary artery by Dr. Berg on October 03, 2019, patient has severe diffuse disease in the LAD and circumflex artery that were treated medically Congestive heart failure, acute on chronic left ventricular systolic dysfunction, ejection fraction 35 percent. Feeling better at this time Shortness of breath, status post acute respiratory failure, breathing is better today, still using oxygen, uses hydrochlorothiazide 12.5 mg and evaluate tolerance and response Borderline hypotension, cannot tolerate beta blockers, NENA inhibitor and/or ARB due to hypotension. Okay for discharge from cardiology standpoint. Clinical Quality Measures DVT/VTE Risk/Contraindication: Risk Factor Score Per Nursin RFS Level Per Nursing on Admit: 4+=Very High TIFFANI CARTER MD Oct 06, 2019 09:37
[2019-10-06] MEDS ORDERED: HYDR12.5 PO (10:41)
[2019-10-06] MEDS ORDERED: CLOP75TA28 PO (10:41)
--- NOTE | 2019-10-06 10:43 | Discharge Inst-Simple/Standard ---
Discharge Inst-Standard Patient Instructions/Follow Up Plan of Care/Instructions/FU: Please continue taking her medications as written. Please follow-up with your primary care provider, Dr. Caballero, on Monday. Activity as Tolerated: Yes Discharge Diet: Low Sodium Diet, Cardiac Diet Return to The Hospital For: Chest pain, shortness of breath, lower extremity edema, racing heart, if you feel you're getting worse. Planned Outpatient Orders/Ref. Pneu Vac Indicated: Yes DADA BEY MD Oct 06, 2019 10:43
--- NOTE | 2019-10-06 10:44 | Discharge Summary ---
Diagnosis/Chief Complaint Date of Admission Oct 01, 2019 at 02:40 Date of Discharge Discharge Date: Oct 05, 2019 Admission Diagnosis Acute Respiratory Failure Primary Care Kodi Caballero MD Discharge Diagnosis (1) OSIEL (acute kidney injury) (2) Non-STEMI (non-ST elevated myocardial infarction) Status: Acute (3) Pneumonia Status: Acute (4) Acute respiratory failure Status: Acute Discharge Summary Discharge Physical Exam Allergies: Coded Allergies: No Known Drug Allergies (Unverified , 07/29/12) Vitals & I&Os Vital Signs Date Time Temp Pulse Resp B/P (MAP) Pulse Ox O2 Delivery O2 Flow Rate FiO2 10/06/19 09:00 99 High Flow N/C 100 10/06/19 08:48 1.00 10/06/19 07:21 37.3 91 20 108/67 (81) Hospital Course Labs (last 24 hrs) Laboratory Tests 10/06/19 05:04: White Blood Count 5.7, Red Blood Count 3.23L, Hemoglobin 9.9L, Hematocrit 32L, Mean Corpuscular Volume 98, Mean Corpuscular Hemoglobin 31, Mean Corpuscular Hemoglobin Concent 31L, Red Cell Distribution Width 13.1, Platelet Count 288, Mean Platelet Volume 9.9, Neutrophils (%) (Auto) 54, Lymphocytes (%) (Auto) 23, Monocytes (%) (Auto) 14H, Eosinophils (%) (Auto) 8, Basophils (%) (Auto) 0, Neutrophils # (Auto) 3.1, Lymphocytes # (Auto) 1.3, Monocytes # (Auto) 0.8, Eosinophils # (Auto) 0.5H, Basophils # (Auto) 0.0, Sodium Level 137, Potassium Level 4.2, Chloride Level 106, Carbon Dioxide Level 21, Anion Gap 10, Blood Urea Nitrogen 19H, Creatinine 1.25, Estimat Glomerular Filtration Rate 41, BUN/Creatinine Ratio 15, Glucose Level 93, Calcium Level 8.5, Phosphorus Level 3.8, Magnesium Level 2.0 Microbiology 10/03/19 Gram Stain - Final, Resulted 10/03/19 Sputum Culture - Preliminary, Resulted Usual upper respiratory fito 10/01/19 Blood Culture - Preliminary, Resulted No growth 10/01/19 Urine Culture - Final, Complete Klebsiella pneumoniae Klebsiella pneumoniae#2 Patient resulted labs reviewed. Pending Labs Laboratory Tests 2/2/20 05:04: White Blood Count 5.7, Red Blood Count 3.23, Hemoglobin 9.9, Hematocrit 32, Mean Corpuscular Volume 98, Mean Corpuscular Hemoglobin 31, Mean Corpuscular Hemoglobin Concent 31, Red Cell Distribution Width 13.1, Platelet Count 288, Mean Platelet Volume 9.9, Neutrophils (%) (Auto) 54, Lymphocytes (%) (Auto) 23, Monocytes (%) (Auto) 14, Eosinophils (%) (Auto) 8, Basophils (%) (Auto) 0, Neutrophils # (Auto) 3.1, Lymphocytes # (Auto) 1.3, Monocytes # (Auto) 0.8, Eosinophils # (Auto) 0.5, Basophils # (Auto) 0.0, Sodium Level 137, Potassium Level 4.2, Chloride Level 106, Carbon Dioxide Level 21, Anion Gap 10, Blood Urea Nitrogen 19, Creatinine 1.25, Estimat Glomerular Filtration Rate 41, BUN/Creatinine Ratio 15, Glucose Level 93, Calcium Level 8.5, Phosphorus Level 3.8, Magnesium Level 2.0 Imaging: Reviewed Imaging Report Discharge Home Medications: Active Scripts Active Hydrochlorothiazide 12.5 Mg Capsule 12.5 Mg PO DAILY@0900 Clopidogrel (Clopidogrel Bisulfate) 75 Mg Tablet 75 Mg PO DAILY Reported Amlodipine Besylate 5 Mg Tablet 5 Mg PO DAILY Estradiol Tablet (Estradiol) 1 Mg Tablet 1 Mg PO DAILY Calcium 500 + D Tablet (Calcium Carbonate/Vitamin D3) 1 Each Tablet 2 Tab PO DAILY Aspirin EC (Aspirin) 81 Mg Tablet.dr 81 Mg PO DAILY Instructions to patient/family Please see electronic discharge instructions given to patient. Clinical Quality Measures DVT/VTE Risk/Contraindication: Risk Factor Score Per Nursin RFS Level Per Nursing on Admit: 4+=Very High Problem Qualifiers (1) Pneumonia: Pneumonia type: due to unspecified organism Laterality: right Lung location: lower lobe of lung Qualified Codes: J18.1 - Lobar pneumonia, unspecified organism (2) Acute respiratory failure: Respiratory failure complication: hypoxia Qualified Codes: J96.01 - Acute respiratory failure with hypoxia DADA BEY MD Oct 06, 2019 10:44
[2019-10-06 11:18] VITALS: BP 103/55
[2019-10-06 13:57] VITALS: BP 103/55
--- NOTE | 2019-10-06 14:00 | NUR ---
SPOKE WITH JAH FROM [facility] VIA [facility]. HE WILL BE SETTING UP HER HOME OXYGEN.
--- NOTE | 2019-10-06 14:51 | NUR ---
OXYGEN HAS BEEN ARRANGED AND PATIENT IS DISCHARGED IN CARE OF SON
--- NOTE | 2019-10-07 07:39 | Physician Query Clarification ---
PQ-Further Specificity Admission/Discharge Admission Date: Oct 01, 2019 at 02:40 Discharge Date: Oct 06, 2019 at 14:49 The medical record reflects the following clinical scenario: History/Risk Factors: acute on chronic systolic CHF, NSTEMI, Acute renal injury, CAD Clinical Findings: CXR 10/02 - Bibasilar atelectasis vs. pneumonia, WBC 9.8, sputum culture normal fito, Dr. Chinchilla draft discharge diagnosis pneumonia, 10/05 Dr. Chinchilla PN acute respiratory failure doubt pneumonia not sepsis Treatment: IV Azityhromycin, IV Ceftriaxone Question: Can you further specify whether or not patient had pneumonia per the clinical indicators above? Please document a response in the Progress Notes or Discharge Summary. 1. No, pneumonia ruled out 2. Yes, patient had lobar pneumonia 3. Other, with explanation of the clinical findings. 4. Clinically undetermined, no explanation for the clinical findings. PHYSICIAN RESPONSE Can you specify per above: 1 Please remember a lack of response to the above will prompt a phone page by CDI/Coding staff. In responding to this query, please exercise your independent professional judgment. The purpose of this communication is to more accurately reflect the complexity of your patients condition. The fact that a question is asked does not imply that any particular answer is desired or expected. Thank you for your timely response to this clarification. Requestors name: [employer] THIS PHYSICIAN QUERY FORM IS A PERMANENT PART OF THE MEDICAL RECORD FAMILIA MONTOYA Oct 07, 2019 07:39 DADA CHINCHILLA MD Oct 12, 2019 18:47
== END 2019-10-06 14:49 | disposition home or self-care (01) | DRG 246 ==
LOC: EDUNIT# 23:38 → ER 23:39 → ICU 10-01 02:40 → 4TH 10-04 10:03
PROVIDERS: ADMIT Internal Medicine; ATTEND Internal Medicine
PROC: 027034Z Dilation of Coronary Artery, One Artery with Drug-eluting Intraluminal Device, Percutaneous Approach (ICD-10-PCS; principal; 2019-10-03)
PROC: 4A023N7 Measurement of Cardiac Sampling and Pressure, Left Heart, Percutaneous Approach (ICD-10-PCS; 2019-10-03)
PROC: B2111ZZ Fluoroscopy of Multiple Coronary Arteries using Low Osmolar Contrast (ICD-10-PCS; 2019-10-03)
DX: I21.4 Non-ST elevation (NSTEMI) myocardial infarction (principal); I11.0 Hypertensive heart disease with heart failure; I50.23 Acute on chronic systolic (congestive) heart failure; J96.01 Acute respiratory failure with hypoxia; E87.2 Acidosis; J90 Pleural effusion, not elsewhere classified; N17.9 Acute kidney failure, unspecified; J98.11 Atelectasis; Z66 Do not resuscitate; I25.10 Atherosclerotic heart disease of native coronary artery without angina pectoris; I95.9 Hypotension, unspecified; R79.1 Abnormal coagulation profile
CPT/HCPCS: 36415; 51702; 71045; 71275; 80048; 80053; 80061; 81000; 82805; 83605; 83735; 83880; 84100; 84484; 85025; 85347; 85379; 85610; 85730; 87040; 87070; 87077; 87081; 87088; 87186; 87205; 87804; 93005; 93306; 93458; 93970; 94640; 94660; 94664; 94760; 94761; 96361; 96365; 96366; 96372; 96375

== ENCOUNTER 2019-11-02 21:13 | Emergency (ER) | payer MEDICARE, OTHER ==
[~2019-11-02] VITALS: Ht 157.4 cm; Wt 57.7 kg
[~2019-11-02 21:13] MED LIST changes: +AMLO5TAB9 PO; +ASPI-983 PO; +CALC-654 PO; +CLOP75TA28 PO; +ESTR1TAB24 PO; +HYDR12.5 PO
--- NOTE | 2019-11-02 21:57 | ED Upper Extremity ---
General Chief Complaint: Upper Extremity Stated Complaint: RIGHT ARM HURTING,BUMPS ON HANDS,HEART ATTACK STACEY Nursing Triage Note: Pt ambulatory with c/o rt arm pain. Pt denies injury or trauma. Pt denies cp or SOB at this time. Family states pt is "more weak" than normal. Nursing Sepsis Screen: No Definite Risk Source: patient, family Exam Limitations: no limitations (JOLENE ATWOOD APRN) History of Present Illness Date Seen by Provider: Nov 02, 2019 Time Seen by Provider: 21:55 Initial Comments To ER by adult children with reports of right arm pain in the proximal humerus and shoulder area, this is worsened by movement, no known injury. Family also reports that she has weakness in both hands such as with twisting the mom to get her like to come on at home, weakness pulling up her pants. She was here in September for a heart attack. She denies shortness of breath or chest pain. Cardiac catheterization/workup during last visit she was found to have extensive severe coronary disease, one stent was placed to the RCA, 25-30% ejection fra ction on echo. Onset: other Severity: moderate Pain/Injury Location: right shoulder, right arm Method of Injury: unknown Modifying Factors: Worse With Movement (JOLENE ATWOOD APRN) Allergies and Home Medications Allergies Coded Allergies: No Known Drug Allergies (Unverified , 07/29/12) Home Medications Aspirin 81 Mg Tablet.dr, 81 MG PO DAILY, (Reported) Calcium Carbonate/Vitamin D3 1 Each Tablet, 2 TAB PO DAILY, (Reported) Cephalexin 500 Mg Capsule, 500 MG PO TID Prescribed by: JOLENE ATWOOD on 11/02/192307 Clopidogrel Bisulfate 75 Mg Tablet, 75 MG PO DAILY Prescribed by: DADA BEY on 10/06/19 104 Estradiol 1 Mg Tablet, 1 MG PO DAILY, (Reported) Hydrochlorothiazide 12.5 Mg Capsule, 12.5 MG PO DAILY@0900 Prescribed by: DADA BEY on 10/06/19 104 Prednisone 20 Mg Tab, 40 MG PO DAILY Prescribed by: JOLENE ATWOOD on 11/02/192307 Patient Home Medication List Home Medication List Reviewed: Yes (JOLENE ATWOOD APRN) Review of Systems Constitutional: see HPI EENTM: see HPI Respiratory: no symptoms reported Cardiovascular: no symptoms reported Genitourinary: no symptoms reported Musculoskeletal: no symptoms reported Skin: no symptoms reported Psychiatric/Neurological: No Symptoms Reported (JOLENE ATWOOD APRN) Past Bgppbkd-Kdxpdy-Zhimpm Hx Patient Social History Recent Foreign Travel: No Contact w/Someone Who Travel: No Recent Infectious Disease Expo: No Recent Hopitalizations: No (JOLENE ATWOOD APRN) Immunizations Up To Date Date of Pneumonia Vaccine: Aug 01, 2010 Date of Influenza Vaccine: Jun 04, 2019 (JOLENE ATWOOD APRN) Seasonal Allergies Seasonal Allergies: No (JOLENE ATWOOD APRN) Past Medical History Surgeries: Yes (vaginal surgery-unk.) Hysterectomy Respiratory: No Cardiac: Yes Hypertension Neurological: No Gastrointestinal: No Musculoskeletal: No Endocrine: No Cancer: No Psychosocial: No Integumentary: No Blood Disorders: No (JOLENE ATWOOD APRN) Family Medical History Family history: Cardiovascular disease 03 FATHER 03 MOTHER Heart Disease (JOLENE ATWOOD APRN) Physical Exam Vital Signs Vital Signs - First Documented 11/02/19 21:30 Temp 36.5 Pulse 99 Resp 12 B/P (MAP) 122/72 (89) Pulse Ox 98 O2 Delivery Room Air (CHAPARRITA GARZON MD) Vital Signs Capillary Refill : Less Than 3 Seconds (JOLENE ATWOOD APRN) Height, Weight, BMI Height: 5'3.00" Weight: 142lbs. oz. 64.662155py; 23.00 BMI Method:Stated General Appearance: WD/WN, no apparent distress HEENT: PERRL/EOMI, normal ENT inspection Neck: non-tender, full range of motion Respiratory: no respiratory distress, no accessory muscle use Shoulder: normal inspection, limited ROM, pain Elbow/Forearm: normal inspection, non-tender Wrist: Yes normal inspection, Yes non-tender Neurologic/Psychiatric: alert, normal mood/affect, oriented x 3 Skin: normal color, warm/dry, other (erythematous patch over the dorsal aspect of the right hand, smaller 12 over the dorsal aspect of the left hand.) (JOLENE ATWOOD APRN) Progress/Results/Core Measures Results/Orders Lab Results Laboratory Tests Test 11/02/19 22:03 11/02/19 23:34 11/03/19 00:15 Range/Units White Blood Count 10.4 4.3-11.0 10^3/uL Red Blood Count 3.64 L 4.35-5.85 10^6/uL Hemoglobin 11.2 L 11.5-16.0 G/DL Hematocrit 35 35-52 % Mean Corpuscular Volume 96 80-99 FL Mean Corpuscular Hemoglobin 31 25-34 PG Mean Corpuscular Hemoglobin Concent 32 32-36 G/DL Red Cell Distribution Width 12.9 10.0-14.5 % Platelet Count 264 130-400 10^3/uL Mean Platelet Volume 10.4 7.4-10.4 FL Neutrophils (%) (Auto) 83 H 42-75 % Lymphocytes (%) (Auto) 9 L 12-44 % Monocytes (%) (Auto) 8 0-12 % Eosinophils (%) (Auto) 0 0-10 % Basophils (%) (Auto) 0 0-10 % Neutrophils # (Auto) 8.6 H 1.8-7.8 X 10^3 Lymphocytes # (Auto) 0.9 L 1.0-4.0 X 10^3 Monocytes # (Auto) 0.8 0.0-1.0 X 10^3 Eosinophils # (Auto) 0.0 0.0-0.3 10^3/uL Basophils # (Auto) 0.0 0.0-0.1 10^3/uL Sodium Level 137 135-145 MMOL/L Potassium Level 3.9 3.6-5.0 MMOL/L Chloride Level 103 98-107 MMOL/L Carbon Dioxide Level 20 L 21-32 MMOL/L Anion Gap 14 5-14 MMOL/L Blood Urea Nitrogen 43 H 7-18 MG/DL Creatinine 1.46 H 0.60-1.30 MG/DL Estimat Glomerular Filtration Rate 34 BUN/Creatinine Ratio 29 Glucose Level 139 H 70-105 MG/DL Calcium Level 9.3 8.5-10.1 MG/DL B-Type Natriuretic Peptide 2138.9 H <100.0 PG/ML Urine Color YELLOW Urine Clarity CLEAR Urine pH 5.5 5-9 Urine Specific [place] >=1.030 1.016-1.022 Urine Protein TRACE H NEGATIVE Urine Glucose (UA) NEGATIVE NEGATIVE Urine Ketones NEGATIVE NEGATIVE Urine Nitrite NEGATIVE NEGATIVE Urine Bilirubin NEGATIVE NEGATIVE Urine Urobilinogen 0.2 < = 1.0 MG/DL Urine Leukocyte Esterase NEGATIVE NEGATIVE Urine RBC (Auto) NEGATIVE NEGATIVE Urine RBC 0-2 /HPF Urine WBC 0-2 /HPF Urine Squamous Epithelial Cells 2-5 /HPF Urine Crystals PRESENT H /LPF Urine Amorphous Sediment FEW LEIF URATES H /LPF Urine Bacteria TRACE /HPF Urine Casts NONE /LPF Urine Mucus NEGATIVE /LPF Urine Culture Indicated NO Troponin I < 0.028 <0.028 NG/ML (CHAPARRITA GARZON MD) My Orders Orders - CHAPARRITA GARZON MD Troponin I (11/03/19 00:05) Chest 1 View, Ap/Pa Only (11/03/19 00:05) (CHAPARRITA GARZON MD) Vital Signs/I&O 11/02/19 21:30 Temp 36.5 Pulse 99 Resp 12 B/P (MAP) 122/72 (89) Pulse Ox 98 O2 Delivery Room Air (CHAPARRITA GARZON MD) Blood Pressure Mean: 89 Progress Progress Note : Progress Note 2330: Pending remaining labs. Assumed care from Jolene Atwood APRN. Discharge pending. 0040: Chest x-ray shows no acute findings. BNP was elevated but I do not believe that this is acute heart failure and appears to be more chronic as level similar to previous. Troponin negative. I did discuss with the family regarding findings and she will follow-up with her doctor. Initiate Keflex and prednisone for other findings as described. Discharged home with return precautions. Patient and family verbalize understanding instructions and agreement with plan. (CHAPARRITA GARZON MD) Diagnostic Imaging Diagonstic Imaging: Xray Plain Films/CT/US/NM/MRI: chest Comments No acute findings Diagonstic Imaging: Xray Plain Films/CT/US/NM/MRI: other (right shoulder) Comments No acute findings Diagonstic Imaging: Xray Plain Films/CT/US/NM/MRI: other ( right humerus) Comments No acute findings (CHAPARRITA GARZON MD) Departure Impression Primary Impression: Biceps tendinitis Additional Impressions: soft tissue infection hand Congestive heart failure General weakness Disposition: 01 HOME, SELF-CARE Condition: Stable Departure-Patient Inst. Decision time for Depature: 23:07 (JOLENE ATWOOD APRN) Referrals: EZIO CHAVIRA MD (PCP/Family) Primary Care Physician Patient Instructions: Biceps Tendinopathy Add. Discharge Instructions: 1. Steroids and antibiotics as directed. Follow-up with your doctor next week All discharge instructions reviewed with patient and/or family. Voiced understanding. Scripts Prednisone (Prednisone) 20 Mg Tab 40 MG PO DAILY, #6 TAB 0 Refills Prov: JOLENE ATWOOD APRN 11/02/19 Cephalexin (Keflex) 500 Mg Capsule 500 MG PO TID, #21 CAP Prov: JOLENE ATWOOD APRN 11/02/19 JOLENE ATWOOD APRN Nov 02, 2019 21:57 CHAPARRITA GARZON MD Nov 03, 2019 00:48
[2019-11-02 22:22] LABS: BASOPHILS % (AUTO) 0 % (0-10); EOSINOPHILS % (AUTO) 0 % (0-10); HEMATOCRIT 35 % (35-52); HEMOGLOBIN 11.2 G/DL (11.5-16.0); LYMPHOCYTES # (AUTO) 0.9 X 10^3 (1.0-4.0); LYMPHOCYTES % (AUTO) 9 % (12-44); MEAN CORPUSCULAR HEMOGLOBIN 31 PG (25-34); MEAN CORPUSCULAR HGB CONC 32 G/DL (32-36); MEAN CORPUSCULAR VOLUME 96 FL (80-99); MEAN PLATELET VOLUME 10.4 FL (7.4-10.4); MONOCYTES # (AUTO) 0.8 X 10^3 (0.0-1.0); MONOCYTES % (AUTO) 8 % (0-12); NEUTROPHILS # (AUTO) 8.6 X 10^3 (1.8-7.8); NEUTROPHILS % (AUTO) 83 % (42-75); PLATELET COUNT 264 10^3/uL (130-400); RED CELL DISTRIBUTION WIDTH 12.9 % (10.0-14.5); WHITE BLOOD COUNT 10.4 10^3/uL (4.3-11.0)
[2019-11-02 22:32] LABS: CALCIUM 9.3 MG/DL (8.5-10.1); CREATININE SERUM 1.46 MG/DL (0.60-1.30); POTASSIUM 3.9 MMOL/L (3.6-5.0)
--- NOTE | 2019-11-02 23:06 | NUR ---
Received report from CHRISTINE Blair at this time to assume care of pt.
[2019-11-02] MEDS ORDERED: PRD20T PO (23:08)
[2019-11-02] MEDS ORDERED: CEPH-507 PO (23:08)
[2019-11-02 23:43] LABS: BILIRUBIN,URINE NEGATIVE (NEGATIVE); CLARITY,URINE CLEAR; COLOR,URINE YELLOW; GLUCOSE, URINE (UA) NEGATIVE (NEGATIVE); KETONES,URINE NEGATIVE (NEGATIVE); LEUKOCYTE ESTERASE ,URINE NEGATIVE (NEGATIVE); NITRITE,URINE NEGATIVE (NEGATIVE); PH,URINE 5.5 (5-9); PROTEIN,URINE TRACE (NEGATIVE)
[2019-11-02 23:58] LABS: BACTERIA,URINE TRACE /HPF; RBC,URINE 0-2 /HPF; WBC,URINE 0-2 /HPF
[2019-11-02 23:59] LABS: AMORPHOUS SEDIMENT,UR FEW AMOR URATES /LPF
[2019-11-03 00:53] VITALS: BP 122/72
--- NOTE | 2019-11-03 07:06 | Diagnostic Imaging Report ---
INDICATION: Shoulder pain. FINDINGS: There is mild cardiomegaly. The mediastinum is unremarkable. There is no pleural effusion, pneumothorax or pneumonia. IMPRESSION: 1. No acute cardiopulmonary abnormality. 2. Mild cardiomegaly. Dictated by: Dictated on workstation # [id number]
--- NOTE | 2019-11-03 07:10 | Diagnostic Imaging Report ---
INDICATION: Shoulder and arm pain. COMPARISON: 11/02/2019 FINDINGS: The humerus is intact. There is no fracture or dislocation. The visualized right lung is clear. Soft tissues are unremarkable. IMPRESSION: No acute fracture or dislocation. Dictated by: Dictated on workstation # [id number]
--- NOTE | 2019-11-03 07:11 | Diagnostic Imaging Report ---
INDICATION: Shoulder pain. 3 views were obtained FINDINGS: The alignment is normal. There is no fracture or dislocation. Right lung is clear. Soft tissues are unremarkable. IMPRESSION: No focal abnormality in the right shoulder. Dictated by: Dictated on workstation # [id number]
== END 2019-11-03 00:58 | disposition home or self-care (01) ==
LOC: EDUNIT# 21:13 → ER 21:15
DX: M75.21 Bicipital tendinitis, right shoulder (principal); L08.9 Local infection of the skin and subcutaneous tissue, unspecified; I11.0 Hypertensive heart disease with heart failure; I50.9 Heart failure, unspecified; Z95.9 Presence of cardiac and vascular implant and graft, unspecified; Z79.82 Long term (current) use of aspirin; Z79.02 Long term (current) use of antithrombotics/antiplatelets; Z79.52 Long term (current) use of systemic steroids; Z82.49 Family history of ischemic heart disease and other diseases of the circulatory system
CPT/HCPCS: 36415; 71045; 73030; 73060; 80048; 81000; 83880; 84484; 85025; 93005

== ENCOUNTER → 2020-07-23 | Outpatient (CLI) | payer MEDICARE, OTHER ==
[~2020-07-23] MED LIST changes: +AMLO-250 PO; -AMLO5TAB9 PO; +ASPI-1238 PO; -ASPI-983 PO; +CEPH-507 PO
== END ==
LOC: CARD 14:00
PROVIDERS: ATTEND Internal Medicine Cardiovascular Disease
DX: I08.1 Rheumatic disorders of both mitral and tricuspid valves (principal); I50.9 Heart failure, unspecified
CPT/HCPCS: 93306

== ENCOUNTER → 2021-01-07 | Outpatient (CLI) | payer MEDICARE, OTHER | LOC: CARD 13:47 | PROVIDERS: ATTEND Internal Medicine Cardiovascular Disease | DX: I08.1 Rheumatic disorders of both mitral and tricuspid valves (principal); I25.10 Atherosclerotic heart disease of native coronary artery without angina pectoris; I11.9 Hypertensive heart disease without heart failure | CPT/HCPCS: 93306 ==

== ENCOUNTER → 2021-02-22 | Outpatient (CLI) | payer MEDICARE, OTHER ==
[~2021-02-22] VITALS: Ht 157 cm; Wt 55.0 kg
[~2021-02-22] MED LIST changes: +CATHETER FLUSH 10 ML SYR IV PRN; +REGADENOSON 0.4 MG/5 ML SYR (LEXISCAN) IV ONE
[2021-02-22 09:31] VITALS: BP 120/67
--- NOTE | 2021-02-22 12:20 | Cardiology Stress Test Report ---
Stress Test Report Date of Procedure/Referring: Date of Procedure: Feb 22, 2021 PCP Tiffani Vogt MD Admitting Physician Kodi Caballero MD Indications: HTN Baseline Heart Rate: 82 Baseline Blood Pressure: Blood Pressure Systolic: 120 Blood Pressure Diastolic: 67 Baseline Vitals Vital Signs Date Time Temp Pulse Resp B/P (MAP) Pulse Ox O2 Delivery O2 Flow Rate FiO2 02/22/21 09:31 82 120/67 (84) Baseline EKG: Baseline EKG: LBBB Summary After explaining the procedure to the patient, she signed a consent and then brought to the stress nuclear laboratory. Patient received 0.4 mg Lexiscan for stress test, ECG, heart rate and blood pressure were monitored continuously. Resting and stress dose of radio tracer were injected, imaging was acquired and reviewed in short axis, horizontal long axis and vertical long axis views. TID: 1.08 SSS: 22 SDS: 15 EF: 18 1. Patient tolerated Lexiscan well 2. Baseline left bundle branch block persisted during test 3. Decreased uptake involving the whole anterior wall and mid to apical anterolateral and anteroseptal arthur with mild reversibility 4. Dilated left ventricle with diffuse left ventricular hypokinesia more pronounced on the anterior wall, EF 18% TIFFANI VOGT MD Feb 22, 2021 12:20
== END ==
LOC: CARD 08:15
PROVIDERS: ATTEND Internal Medicine Cardiovascular Disease
DX: I10 Essential (primary) hypertension (principal); I25.10 Atherosclerotic heart disease of native coronary artery without angina pectoris
CPT/HCPCS: 78452; 93017; A9502

== ENCOUNTER 2021-11-08 13:41 | Emergency (ER) | payer MEDICARE, OTHER ==
[~2021-11-08] VITALS: Ht 160 cm; Wt 52.2 kg
[~2021-11-08 13:41] MED LIST changes: +ACET-2650 PO; +ASPI-999 PO; +ATOR10TA66 PO; +CALC-694 PO; +CARV3.122 PO; -CATHETER FLUSH 10 ML SYR IV PRN; +CYAN-41 PO; +DOCU-143 PO; +DOCU100C37 PO; +FURO40TA4 PO; +HYDR12.56 PO; +LOPE-175 PO; +LOSA25TA41 PO; +MEGE400O20 PO; +OMEG-160 PO; +OXC5T PO; +PANT40TA52 PO; +POLY17PO6 PO; +POTA-179 PO; -REGADENOSON 0.4 MG/5 ML SYR (LEXISCAN) IV ONE; +SNN187T PO
--- NOTE | 2021-11-08 14:06 | ED General ---
General Chief Complaint: General Problems/Pain Stated Complaint: CONFUSION Nursing Triage Note: PT TO RM 8 VIA [facility]. EMS REPORTS STAFF AT [facility] ADVISED PT HAS BEEN EXPERIENCING INCREASED CONFUSION AND ELEVATED CREATININE/ELEVATED POTASSIUM. PT MOANING DURING TRIAGE, UNABLE TO ANSWER TRIAGE QUESTIONS OR PROVIDE PMH. PT C/O LOWER BACK PAIN. Source of Information: Patient Exam Limitations: No Limitations (JOLENE PINZON APRN) History of Present Illness Date Seen by Provider: Nov 08, 2021 Time Seen by Provider: 14:04 Initial Comments To ER from [facility] with reports of increasing confusion. She has severe CAD, CHF with EF 20-25% and Stage IV CKD and was noted to have an elevated creatinine as well as potassium today. She is moaning during triage related to low back pain. She was admitted to [facility] recently after she fell sustaining a left hip fracture which was repaired here.She is DO NOT RESUSCITATE status. During that admission sustained NSTEMI with troponin up to 13 treated conservatively Timing/Duration: 1-2 Days Severity: Moderate Associated Systoms: Denies Symptoms (JOLENE PINZON APRN) Allergies and Home Medications Allergies Coded Allergies: No Known Drug Allergies (Unverified , 07/29/12) Patient Home Medication List Home Medication List Reviewed: Yes (JOLENE PINZON APRN) Acetaminophen (Tylenol Arthritis) 650 Mg Tablet.er, 650 MG PO BID Prescribed by: EL STEWART on 11/04/21737 Aspirin (Aspirin) 81 Mg Tab.chew, 81 MG PO DAILY Prescribed by: EL STEWART on 11/04/21737 Atorvastatin Calcium (Atorvastatin Calcium) 10 Mg Tablet, 10 MG PO 1400 Prescribed by: EL STEWART on 11/04/21737 Calcium Carbonate/Vitamin D3 (Calcium 600 + Vit D Caplet) 1 Each Tablet, 2 EACH PO BID Prescribed by: EL STEWART on 11/04/21737 Clopidogrel Bisulfate (Clopidogrel) 75 Mg Tablet, 75 MG PO DAILY Prescribed by: EL STEWART on 11/04/21737 Cyanocobalamin (Vitamin B-12) (Vitamin B-12) 1,000 Mcg Tablet, 1,000 MCG PO DAILY Prescribed by: EL STEWART on 11/04/21737 Docusate Sodium (Docusate Sodium) 100 Mg Capsule, 100 MG PO BID Prescribed by: EL STEWART on 11/04/21737 Furosemide (Furosemide) 40 Mg Tablet, 40 MG PO DAILY Prescribed by: EL STEWART on 11/04/21737 Megestrol Acetate (Megestrol Acetate) 400 Mg/10 Ml Oral.susp, 400 MG PO DAILY Prescribed by: EL STEWART on 11/04/21737 Oxycodone Hcl (Oxyir Tablet) 5 Mg Tab, 2.5 MG PO Q4H PRN for PAIN-SEVERE (8-10) Prescribed by: EL STEWART on 11/04/21739 Pantoprazole Sodium (Pantoprazole Sodium) 40 Mg Tablet.dr, 40 MG PO DAILY Prescribed by: EL STEWART on 11/04/21737 Polyethylene Glycol 3350 (Miralax) 17 Gm Powd.pack, 17 GM PO DAILY PRN for CONSTIPATION-1ST LINE Prescribed by: EL STEWART on 11/04/21737 Potassium Chloride (Potassium Chloride) 20 Meq Tab.er.prt, 20 MEQ PO DAILY Prescribed by: EL STEWART on 11/04/21737 Sennosides (Senna Lax) 8.6 Mg Tablet, 8.6 MG PO BID Prescribed by: EL STEWART on 11/04/21737 Discontinued Medications Acetaminophen (Tylenol Arthritis) 650 Mg Tablet.er, 650 MG PO Q6H PRN for PAIN- MILD (1-4) OR TEMPATURE, (Reported) Entered as Reported by: TAMICA YANES on 10/25/211424 Carvedilol (Carvedilol) 3.125 Mg Tablet, 3.125 MG PO BID, (Reported) Entered as Reported by: TAMICA YANES on 10/25/211424 Docusate Sodium (Colace) 100 Mg Capsule, 100 MG PO DAILY PRN for CONSTIPATION- 1ST LINE, (Reported) Entered as Reported by: TAMICA YANES on 10/25/21 142 Hydrochlorothiazide (Hydrochlorothiazide) 12.5 Mg Tablet, 12.5 MG PO DAILY, (Reported) Entered as Reported by: TAMICA YANES on 10/25/211424 Loperamide HCl (Imodium A-D) 2 Mg Capsule, 2 MG PO QID PRN for DIARRHEA, (Reported) Entered as Reported by: TAMICA YANES on 10/25/211424 Losartan Potassium (Losartan Potassium) 25 Mg Tablet, 12.5 MG PO DAILY, (Reported) Entered as Reported by: TAMICA YANES on 10/25/211424 [place]-3/Dha/Epa/Fish Oil (Fish Oil 1,000 mg Softgel) 1 Each Capsule, 1 EACH PO DAILY, (Reported) Entered as Reported by: TAMICA YANES on 10/25/211424 Review of Systems Review of Systems Constitutional: see HPI EENTM: see HPI Respiratory: no symptoms reported Cardiovascular: no symptoms reported Genitourinary: no symptoms reported Musculoskeletal: see HPI, back pain Skin: no symptoms reported Psychiatric/Neurological: No Symptoms Reported Hematologic/Lymphatic: No Symptoms Reported Immunological/Allergic: no symptoms reported (JOLENE PINZON APRN) Past Ondjtmi-Ybszwm-Krkzcc Hx Patient Social History Tobacco Use?: No Use of E-Cig and/or Vaping dev: No Substance use?: No Alcohol Use?: No (JOLENE PINZON APRN) Immunizations Up To Date Influenza Vaccine Up-to-Date: Yes; Up-to-Date First/Initial COVID19 Vaccinat: November 2020 Second COVID19 Vaccination Kwame: Dec 2020 Third COVID19 Vaccination Date: Jul 2021 COVID19 Vaccine Budget Technician: UNK TO PT (JOLENE PINZON APRN) Seasonal Allergies Seasonal Allergies: No (JOLENE PINZON APRN) Past Medical History Surgery/Hospitalization HX: None Surgeries: Yes (vaginal surgery-unk.) Hysterectomy Respiratory: No Currently Using CPAP: No Currently Using BIPAP: No Cardiac: Yes Cardiomyopathy, Coronary Artery Disease, Hypertension Neurological: No Genitourinary: No Gastrointestinal: No Musculoskeletal: No Endocrine: No Cancer: No Psychosocial: No Integumentary: No Blood Disorders: No (JOLENE PINZON APRN) Family Medical History Family history: Cardiovascular disease 03 FATHER 03 MOTHER Heart Disease (JOLENE PINZON APRN) Physical Exam Vital Signs Vital Signs - First Documented 11/08/21 13:42 Temp 36.3 Pulse 92 Resp 22 B/P (MAP) 96/71 (79) Pulse Ox 96 O2 Delivery Room Air (WILFRID ZUÑIGA MD) Vital Signs Capillary Refill : Less Than 3 Seconds (JOLENE PINZON APRN) Height, Weight, BMI Height: 5'3.00" Weight: 142lbs. oz. 64.737739me; 20.00 BMI Method:Stated General Appearance: Thin (Frail, moaning. When asked what is wrong she states "my back".) Eyes: Bilateral Eye Normal Inspection, Bilateral Eye PERRL, Bilateral Eye EOMI Neck: Full Range of Motion, Normal Inspection Respiratory: No Accessory Muscle Use, No Respiratory Distress Cardiovascular: Regular Rate, Rhythm, Normal Peripheral Pulses Gastrointestinal: Non Tender, Soft Extremity: Normal Capillary Refill, Normal Inspection Neurologic/Psychiatric: Alert Skin: Normal Color, Warm/Dry (JOLENE PNIZON APRN) Focused Exam Lactate Level 11/08/21 13:49: Lactic Acid Level 2.78*H 11/08/21 16:09: Lactic Acid Level 4.94*H (WILFRID ZUÑIGA MD) Lactic Acid Level Laboratory Tests Test 11/08/21 13:49 11/08/21 16:09 Lactic Acid Level 2.78 MMOL/L (0.50-2.00) *H 4.94 MMOL/L (0.50-2.00) *H (WILFRID ZUÑIGA MD) Progress/Results/Core Measures Suspected Sepsis SIRS Temperature: Pulse: 92 Respiratory Rate: 22 Laboratory Tests 11/08/21 13:49: White Blood Count 12.9H Blood Pressure 96 /71 Mean: 79 11/08/21 13:49: Lactic Acid Level 2.78*H 11/08/21 16:09: Lactic Acid Level 4.94*H Laboratory Tests 11/08/21 13:49: Creatinine 4.20#H, INR Comment 1.4, Platelet Count 244, Total Bilirubin 1.5H 11/08/21 16:13: Creatinine 4.02H (JOLENE PINZON APRN) Results/Orders Lab Results Laboratory Tests Test 11/08/21 13:49 11/08/21 14:28 11/08/21 15:58 11/08/21 16:09 Range/Units White Blood Count 12.9 H 4.3-11.0 10^3/uL Red Blood Count 3.35 L 3.80-5.11 10^6/uL Hemoglobin 10.3 L 11.5-16.0 g/dL Hematocrit 33 L 35-52 % Mean Corpuscular Volume 99 80-99 fL Mean Corpuscular Hemoglobin 31 25-34 pg Mean Corpuscular Hemoglobin Concent 31 L 32-36 g/dL Red Cell Distribution Width 17.1 H 10.0-14.5 % Platelet Count 244 130-400 10^3/uL Mean Platelet Volume 10.5 9.0-12.2 fL Immature Granulocyte % (Auto) 1 % Neutrophils (%) (Auto) 82 H 42-75 % Lymphocytes (%) (Auto) 11 L 12-44 % Monocytes (%) (Auto) 6 0-12 % Eosinophils (%) (Auto) 0 0-10 % Basophils (%) (Auto) 0 0-10 % Neutrophils # (Auto) 10.7 H 1.8-7.8 10^3/uL Lymphocytes # (Auto) 1.4 1.0-4.0 10^3/uL Monocytes # (Auto) 0.8 0.0-1.0 10^3/uL Eosinophils # (Auto) 0.0 0.0-0.3 10^3/uL Basophils # (Auto) 0.0 0.0-0.1 10^3/uL Immature Granulocyte # (Auto) 0.1 0.0-0.1 10^3/uL Prothrombin Time 17.2 H 12.2-14.7 SEC INR Comment 1.4 0.8-1.4 Activated Partial Thromboplast Time 33 24-35 SEC Sodium Level 138 135-145 MMOL/L Potassium Level 5.9 H 3.6-5.0 MMOL/L Chloride Level 102 98-107 MMOL/L Carbon Dioxide Level 19 L 21-32 MMOL/L Anion Gap 17 H 5-14 MMOL/L Blood Urea Nitrogen 80 H 7-18 MG/DL Creatinine 4.20 #H 0.60-1.30 MG/DL Estimat Glomerular Filtration Rate 10 BUN/Creatinine Ratio 19 Glucose Level 123 H 70-105 MG/DL Lactic Acid Level 2.78 *H 4.94 *H 0.50-2.00 MMOL/L Calcium Level 9.9 8.5-10.1 MG/DL Corrected Calcium 10.0 8.5-10.1 MG/DL Total Bilirubin 1.5 H 0.1-1.0 MG/DL Aspartate Amino Transf (AST/SGOT) 65 H 5-34 U/L Alanine Aminotransferase (ALT/SGPT) 64 H 0-55 U/L Alkaline Phosphatase 300 H 40-136 U/L Total Protein 6.5 6.4-8.2 GM/DL Albumin 3.9 3.2-4.5 GM/DL SARS-CoV-2 RNA (RT-PCR) Not Detected Not Detecte Urine Color YELLOW Urine Clarity CLEAR Urine pH 5.5 5-9 Urine Specific [place] 1.020 1.016-1.022 Urine Protein NEGATIVE NEGATIVE Urine Glucose (UA) NEGATIVE NEGATIVE Urine Ketones NEGATIVE NEGATIVE Urine Nitrite NEGATIVE NEGATIVE Urine Bilirubin NEGATIVE NEGATIVE Urine Urobilinogen 0.2 < = 1.0 MG/DL Urine Leukocyte Esterase 1+ H NEGATIVE Urine RBC (Auto) TRACE-I H NEGATIVE Urine RBC 0-2 /HPF Urine WBC 2-5 /HPF Urine Squamous Epithelial Cells 0-2 /HPF Urine Renal Epithelial Cells 0-2 /HPF Urine Crystals PRESENT H /LPF Urine Amorphous Sediment FEW LEIF URATES H /LPF Urine Bacteria FEW H /HPF Urine Casts PRESENT /LPF Urine Hyaline Casts 2-5 H /LPF Urine Granular Casts 0-2 H /LPF Urine Mucus NEGATIVE /LPF Urine Culture Indicated YES Glucometer 96 70-110 MG/DL Test 11/08/21 16:13 11/08/21 16:56 Range/Units Sodium Level 142 135-145 MMOL/L Potassium Level 5.0 3.6-5.0 MMOL/L Chloride Level 107 98-107 MMOL/L Carbon Dioxide Level 17 L 21-32 MMOL/L Anion Gap 18 H 5-14 MMOL/L Blood Urea Nitrogen 77 H 7-18 MG/DL Creatinine 4.02 H 0.60-1.30 MG/DL Estimat Glomerular Filtration Rate 10 BUN/Creatinine Ratio 19 Glucose Level 73 70-105 MG/DL Calcium Level 9.2 8.5-10.1 MG/DL Glucometer 83 70-110 MG/DL (WILFRID ZUÑIGA MD) Medications Given in ED Current Medications Medications Dose Ordered Sig/Kiko Route Start Time Stop Time Status Last Admin Dose Admin Dextrose 50 ml ONCE ONCE IV 11/08/21 14:30 11/08/21 14:31 DC 11/08/21 14:43 50 ML Fentanyl Citrate 25 mcg ONCE PRN IVP 11/08/21 14:15 11/08/21 18:47 DC 11/08/21 16:57 25 MCG Fentanyl Citrate 25 mcg ONCE PRN IVP 11/08/21 17:00 11/08/21 18:47 DC 11/08/21 14:10 25 MCG Insulin Human Regular 10 unit ONCE ONCE IV 11/08/21 14:30 11/08/21 14:31 DC 11/08/21 14:48 10 UNIT Ondansetron HCl 4 mg ONCE ONCE IVP 11/08/21 16:00 11/08/21 16:01 DC 11/08/21 16:10 4 MG Sodium Polystyrene Sulfonate 30 gm ONCE ONCE PO 11/08/21 14:30 11/08/21 14:31 DC 11/08/21 14:51 30 GM (WILFRID ZUÑIGA MD) Vital Signs/I&O 11/08/21 13:42 Temp 36.3 Pulse 92 Resp 22 B/P (MAP) 96/71 (79) Pulse Ox 96 O2 Delivery Room Air (WILFRID ZUÑIGA MD) Vital Signs/I&O Capillary Refill : Less Than 3 Seconds (JOLENE PINZON APRN) Blood Pressure Mean: 79 Departure Communication (Admissions) NAME: CORNELIUS BRITO Benhauer REC#: [id number] PT STATUS: REG ER : 1935 PHYSICIAN: JOLENE PINZON APRN ADMIT DATE: 11/08/21/ER Draft Date of Exam:11/08/21 CHEST 1 VIEW, AP/PA ONLY INDICATION: Weakness and abdominal pain. EXAMINATION: Portable chest at 3:41 p.m. FINDINGS: Heart is mildly enlarged. Pulmonary vascularity is normal. There are no infiltrates, effusions, or pneumothoraces. IMPRESSION: No acute abnormalities in the chest. Dictated on workstation # [id number] Dict: 11/08/21 1556 Trans: 11/08/21 1602 [id number] Interpreted by: CHAPARRITA SANDERS MD Electronically signed by: NAME: CORNELIUS BRITO [facility] REC#: [id number] PT STATUS: REG ER : 1935 PHYSICIAN: JOLENE PINZON APRN ADMIT DATE: 11/08/21/ER Signed Date of Exam:11/08/21 CT LUMBAR SPINE WO CLINICAL INDICATION: Patient with abdominal pain and lower back pain. Patient with confusion and high creatinine. EXAMS: 1: Axial CT scan of the abdomen and pelvis without contrast. Sagittal and coronal reformatted images are created. Auto Exposure Controls were utilized during the CT exam to meet ALARA standards for radiation dose reduction. 2: Axial CT scan of the lumbar spine without contrast. Sagittal and coronal reformatted images are created. Auto Exposure Controls were utilized during the CT exam to meet ALARA standards for radiation dose reduction. COMPARISON: None. FINDINGS: CT ABDOMEN AND PELVIS: There is mild atelectasis and/or scarring involving the posterior aspects of both lung bases. There is a small right pleural effusion. Left hip arthroplasty is noted. There are degenerative spurs involving the lower thoracic spine. There is cardiomegaly. There are coronary artery calcifications. There is mild left adrenal gland thickening. Otherwise, the liver, spleen, and adrenal glands are unremarkable as visualized. Slight volume loss/atrophy of the pancreas is noted. Otherwise, visualized portions of the pancreas are unremarkable. There are innumerable tiny calcifications throughout the mild to moderately distended gallbladder. There is no pericholecystic fluid. There is no significant gallbladder wall thickening on this exam. There is no intrahepatic or extrahepatic ductal dilation. Pancreatic duct is not enlarged. There is a 4.0 cm cyst involving the inferior pole of the left kidney. Otherwise, both kidneys are unremarkable as visualized. There is no stone or hydronephrosis. The visualized distal ureters and bladder are obscured by left hip arthroplasty artifact. [place] catheter is seen within the decompressed bladder. There is no lymphadenopathy. There is presacral fluid/fat stranding seen of unknown etiology or chronicity. Air-fluid level is seen within the rectum. There are multiple diverticula involving the sigmoid colon. There is no CT evidence of diverticulitis as visualized. Low-lying transverse colon is seen extending to the pelvis level. There are air-fluid levels seen within the colon and also in the small bowel with no intestinal dilation. There is moderate gastric distention with air and fluid noted, which is nonspecific. There is no significant bowel wall thickening. There is motion artifact limiting evaluation of the intra-abdominal structures. The appendix is not definitively visualized. There is no intra-abdominal free air. The extra-abdominal and pelvic soft tissue structures show anasarca. Vascular calcifications are seen. There is no aneurysmal dilation of the abdominal aorta or common iliac arteries. CT LUMBAR SPINE: There is no acute lumbar spine fracture. There is partially visualized left curvature of the thoracic spine. There are degenerative spurs involving the lumbar spine and facet arthropathy. L1-L2: There is no significant bony central canal or neural foramen narrowing. There is mild bilateral facet arthropathy. L2-L3: There is appearance of a mild diffuse disc bulge and mild bilateral facet arthropathy. There is mild central canal narrowing. There is no significant right neural foramen narrowing and at least mild left neural foramen narrowing. L3-L4: There is grade 1 anterolisthesis of L4 on L5. There is a diffuse disc bulge with [id number] loss of disc space height. There is severe left facet arthropathy/hypertrophy and moderate right facet arthropathy. There is at least moderate central canal stenosis. There is mild right neural foramen narrowing and moderate left neural foramen narrowing. L4-L5: There is a diffuse disc bulge with moderate left facet arthropathy and mild right facet arthropathy. There is at least mild central canal narrowing. There is mild bilateral neural foramen narrowing. L5-S1: There is moderate right facet arthropathy/hypertrophy and moderate left facet arthropathy. There is no significant bony central canal narrowing. There is at least mild left neural foramen narrowing and no significant right neural foramen narrowing. IMPRESSION: CT abdomen and pelvis: 1: Limited exam due to motion artifact of the abdomen and left hip hardware streak artifact. Of note, the appendix is not definitively visualized and cannot be evaluated on this exam. 2: There is cholelithiasis, but no CT evidence of cholecystitis. 3: There is diverticulosis, but no CT evidence of diverticulitis. 4: Nonspecific fluid in the presacral space. There are air-fluid levels within the colon and also in the rectum. Colitis cannot be completely excluded, although there is no major bowel wall thickening. 5: There is a small right pleural effusion. 6: There is cardiomegaly. 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 Dictated by: Dictated on workstation # [id number] Dict: 11/08/21 1603 Trans: 11/08/21 1646 [id number] Interpreted by: AB ZAMORA MD Electronically signed by: AB ZAMORA MD 11/08/21 9129 Her EKG shows sinus rhythm at 92 left bundle branch block which is chronic for her. She denies chest pain or shortness of breath. 1614-I spoken with the son who is at the bedside who has spoken with his siblings and they all agree that she would not be appropriate for dialysis sh ould that be necessary. I certainly agree with this given her comorbidities. 1716-son has talked to the residential and they have mentioned hospice to him and he is interested in pursuing that. His sister will be here at about 2 or 3 AM when her flight lands. Her blood pressure is currently 78/53. I discussed with him giving her a fluid bolus which: Cause an issue with her CHF versus starting a central line and doing pressors though given her comorbidities and age I do not think that will change the long-term outcome. I discussed with him that she may very well passed within the next 24 hours and he is accepting of that. Discussed with him that we will allow visitors overnight in case she passes overnight. I discussed with him starting a central line and pressors versus IV bolus versus continuing the current plan to hydrate slowly and if she passes in the meantime then so be it. He would like that option, to use IV fluids slowly and reevaluate later. If she passes in the interim then so be it. [id number] has spoken with patient's primary care provider Romelia Blackmon as well as [facility]. Romelia has written orders for [place] [facility], residential is aware. (She was at [facility] when she sustained the hip fracture and then was discharged from the hospital to [facility] for penitentiary but now that that is not necessary she will be going back to [facility] on hospice. (JOLENE PINZON APRN) Impression Primary Impression: Acute kidney injury superimposed on chronic kidney disease Additional Impressions: CHF (congestive heart failure) End of life care Disposition: 03 XFER SNF Condition: Stable Admissions Decision to Admit Reason: Admit from ER (General) (JOLENE PINZON APRN) Departure-Patient Inst. Decision time for Depature: 17:58 (JOLENE PINZON APRN) Referrals: EZIO CHAVIRA MD (PCP/Family) Primary Care Physician Patient Instructions: NO INSTRUCTIONS GIVEN Add. Discharge Instructions: All discharge instructions reviewed with patient and/or family. Voiced understanding. ATTENDING PHYSICIAN NOTE: I was physically present as attending physician in the emergency department during the care of this patient, but I was not directly involved in the decision making or delivery of care for this patient. (WILFRID ZUÑIGA MD) JOLENE PINZON APRN Nov 08, 2021 14:06 WILFRID ZUÑIGA MD Nov 08, 2021 20:42
[2021-11-08] MEDS: fentaNYL INJ 100 MCG/2 ML AMP IVP PRN ×4 (14:08→17:00)
[2021-11-08 14:10] LABS: BASOPHILS % (AUTO) 0 % (0-10); EOSINOPHILS % (AUTO) 0 % (0-10); HEMATOCRIT 33 % (35-52); HEMOGLOBIN 10.3 g/dL (11.5-16.0); LYMPHOCYTES # (AUTO) 1.4 10^3/uL (1.0-4.0); LYMPHOCYTES % (AUTO) 11 % (12-44); MEAN CORPUSCULAR HEMOGLOBIN 31 pg (25-34); MEAN CORPUSCULAR HGB CONC 31 g/dL (32-36); MEAN CORPUSCULAR VOLUME 99 fL (80-99); MEAN PLATELET VOLUME 10.5 fL (9.0-12.2); MONOCYTES # (AUTO) 0.8 10^3/uL (0.0-1.0); MONOCYTES % (AUTO) 6 % (0-12); NEUTROPHILS # (AUTO) 10.7 10^3/uL (1.8-7.8); NEUTROPHILS % (AUTO) 82 % (42-75); PLATELET COUNT 244 10^3/uL (130-400); WHITE BLOOD COUNT 12.9 10^3/uL (4.3-11.0)
[2021-11-08 14:12] LABS: ALBUMIN 3.9 GM/DL (3.2-4.5)
[2021-11-08 14:13] LABS: POTASSIUM 5.9 MMOL/L (3.6-5.0)
[2021-11-08 14:14] LABS: CALCIUM 9.9 MG/DL (8.5-10.1)
[2021-11-08 14:15] LABS: TOTAL PROTEIN 6.5 GM/DL (6.4-8.2)
[2021-11-08] MEDS ORDERED: NS IV 500 ML 500 ML IV SCH ×2 (14:15→14:30)
[2021-11-08 14:16] LABS: INR 1.4 (0.8-1.4); PROTHROMBIN TIME PATIENT 17.2 SEC (12.2-14.7)
[2021-11-08 14:17] LABS: BILIRUBIN,TOTAL 1.5 MG/DL (0.1-1.0)
[2021-11-08 14:19] LABS: CREATININE SERUM 4.2 MG/DL (0.60-1.30)
[2021-11-08] MEDS ORDERED: DEXTROSE 50% 50 ML (IMS) SYR IV ONE (14:30)
[2021-11-08] MEDS ORDERED: inSUlin (REGULAR) HUMAN 1 UNIT/0.01 ML (CHARGE PER UNIT) IV ONE (14:30)
[2021-11-08] MEDS ORDERED: SOD POLYSTERENE 15 GM/60 ML (KAYEXALATE) UNIT DOSE PO ONE (14:30)
[2021-11-08 14:33] LABS: BILIRUBIN,URINE NEGATIVE (NEGATIVE); CLARITY,URINE CLEAR; COLOR,URINE YELLOW; GLUCOSE, URINE (UA) NEGATIVE (NEGATIVE); KETONES,URINE NEGATIVE (NEGATIVE); LEUKOCYTE ESTERASE ,URINE 1+ (NEGATIVE); NITRITE,URINE NEGATIVE (NEGATIVE); PH,URINE 5.5 (5-9); PROTEIN,URINE NEGATIVE (NEGATIVE)
[2021-11-08 14:41] LABS: BACTERIA,URINE FEW /HPF; RBC,URINE 0-2 /HPF
[2021-11-08 14:42] LABS: AMORPHOUS SEDIMENT,UR FEW AMOR URATES /LPF; GRANULAR CASTS,URINE 0-2 /LPF; RENAL EPITHELIAL CELLS,URINE 0-2 /HPF; SQUAMOUS EPITHELIAL CELL,UR 0-2 /HPF
[2021-11-08] MEDS ORDERED: ONDANSETRON 4 MG/2 ML (SDV) Z0FRAN IVP ONE (16:00)
--- NOTE | 2021-11-08 16:02 | Diagnostic Imaging Report ---
INDICATION: Weakness and abdominal pain. EXAMINATION: Portable chest at 3:41 p.m. FINDINGS: Heart is mildly enlarged. Pulmonary vascularity is normal. There are no infiltrates, effusions, or pneumothoraces. IMPRESSION: No acute abnormalities in the chest. Dictated by: Dictated on workstation # [id number]
--- NOTE | 2021-11-08 16:41 | Diagnostic Imaging Report ---
CLINICAL INDICATION: Patient with abdominal pain and lower back pain. Patient with confusion and high creatinine. EXAMS: 1: Axial CT scan of the abdomen and pelvis without contrast. Sagittal and coronal reformatted images are created. Auto Exposure Controls were utilized during the CT exam to meet ALARA standards for radiation dose reduction. 2: Axial CT scan of the lumbar spine without contrast. Sagittal and coronal reformatted images are created. Auto Exposure Controls were utilized during the CT exam to meet ALARA standards for radiation dose reduction. COMPARISON: None. FINDINGS: CT ABDOMEN AND PELVIS: There is mild atelectasis and/or scarring involving the posterior aspects of both lung bases. There is a small right pleural effusion. Left hip arthroplasty is noted. There are degenerative spurs involving the lower thoracic spine. There is cardiomegaly. There are coronary artery calcifications. There is mild left adrenal gland thickening. Otherwise, the liver, spleen, and adrenal glands are unremarkable as visualized. Slight volume loss/atrophy of the pancreas is noted. Otherwise, visualized portions of the pancreas are unremarkable. There are innumerable tiny calcifications throughout the mild to moderately distended gallbladder. There is no pericholecystic fluid. There is no significant gallbladder wall thickening on this exam. There is no intrahepatic or extrahepatic ductal dilation. Pancreatic duct is not enlarged. There is a 4.0 cm cyst involving the inferior pole of the left kidney. Otherwise, both kidneys are unremarkable as visualized. There is no stone or hydronephrosis. The visualized distal ureters and bladder are obscured by left hip arthroplasty artifact. [place] catheter is seen within the decompressed bladder. There is no lymphadenopathy. There is presacral fluid/fat stranding seen of unknown etiology or chronicity. Air-fluid level is seen within the rectum. There are multiple diverticula involving the sigmoid colon. There is no CT evidence of diverticulitis as visualized. Low-lying transverse colon is seen extending to the pelvis level. There are air-fluid levels seen within the colon and also in the small bowel with no intestinal dilation. There is moderate gastric distention with air and fluid noted, which is nonspecific. There is no significant bowel wall thickening. There is motion artifact limiting evaluation of the intra-abdominal structures. The appendix is not definitively visualized. There is no intra-abdominal free air. The extra-abdominal and pelvic soft tissue structures show anasarca. Vascular calcifications are seen. There is no aneurysmal dilation of the abdominal aorta or common iliac arteries. CT LUMBAR SPINE: There is no acute lumbar spine fracture. There is partially visualized left curvature of the thoracic spine. There are degenerative spurs involving the lumbar spine and facet arthropathy. L1-L2: There is no significant bony central canal or neural foramen narrowing. There is mild bilateral facet arthropathy. L2-L3: There is appearance of a mild diffuse disc bulge and mild bilateral facet arthropathy. There is mild central canal narrowing. There is no significant right neural foramen narrowing and at least mild left neural foramen narrowing. L3-L4: There is grade 1 anterolisthesis of L4 on L5. There is a diffuse disc bulge with [id number] loss of disc space height. There is severe left facet arthropathy/hypertrophy and moderate right facet arthropathy. There is at least moderate central canal stenosis. There is mild right neural foramen narrowing and moderate left neural foramen narrowing. L4-L5: There is a diffuse disc bulge with moderate left facet arthropathy and mild right facet arthropathy. There is at least mild central canal narrowing. There is mild bilateral neural foramen narrowing. L5-S1: There is moderate right facet arthropathy/hypertrophy and moderate left facet arthropathy. There is no significant bony central canal narrowing. There is at least mild left neural foramen narrowing and no significant right neural foramen narrowing. IMPRESSION: CT abdomen and pelvis: 1: Limited exam due to motion artifact of the abdomen and left hip hardware streak artifact. Of note, the appendix is not definitively visualized and cannot be evaluated on this exam. 2: There is cholelithiasis, but no CT evidence of cholecystitis. 3: There is diverticulosis, but no CT evidence of diverticulitis. 4: Nonspecific fluid in the presacral space. There are air-fluid levels within the colon and also in the rectum. Colitis cannot be completely excluded, although there is no major bowel wall thickening. 5: There is a small right pleural effusion. 6: There is cardiomegaly. 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 Dictated by: Dictated on workstation # [id number]
[2021-11-08 16:49] LABS: CALCIUM 9.2 MG/DL (8.5-10.1)
[2021-11-08 16:53] LABS: CREATININE SERUM 4.02 MG/DL (0.60-1.30)
[2021-11-08 18:40] VITALS: BP 85/56
== END 2021-11-08 18:40 ==
LOC: EDUNIT# 13:41 → ER 13:42 → 4TH 17:11 → UNDOADMIN 17:11 → ER 18:40
DX: N17.9 Acute kidney failure, unspecified (principal); I13.0 Hypertensive heart and chronic kidney disease with heart failure and stage 1 through stage 4 chronic kidney disease, or unspecified chronic kidney disease; N18.4 Chronic kidney disease, stage 4 (severe); I50.9 Heart failure, unspecified; Z51.5 Encounter for palliative care; Z20.822 Contact with and (suspected) exposure to COVID-19
CPT/HCPCS: 36415; 51702; 71045; 72131; 74176; 80048; 80053; 81000; 82947; 83605; 85025; 85610; 85730; 87040; 87088; 87636; 93005